=== PATIENT | female | born 1940 | race African-American/Black ===

== ENCOUNTER 2016-07-19 00:07 | Emergency (ER) | payer MEDICARE, MEDICAID ==
[~2016-07-19] VITALS: Ht 170.2 cm; Wt 63.5 kg
[~2016-07-19 00:07] MED LIST: ASPIR 8181 MG ORAL; ASPIRIN81 MG NG; COSOPT EYE DROP10 M1 OP; DIAZEPAM10 MG ORAL; GLIMEPIRIDE1 MG ORAL; GLUCOPHAGE500 MG ORAL; HYDROCODON-ACE1 EAC5 ORAL; KEFLEX500 MG ORAL; LIPITOR10 MG ORAL; METFORMIN HCL1000 M1 ORAL; METFORMIN HCL500 M1 ORAL; NKM; OMEPRAZOLE20 M2 ORAL; PROTONIX40 MG ORAL; SIMVASTATIN20 MG ORAL; SOMA350 MG PO; TENORMIN50 MG ORAL; ULTRA-LIGHT RO1 EACH MC; UNOBMED
[2016-07-19] MEDS ORDERED: AMOXICILLIN500 MG ORAL (00:45)
[2016-07-19] MEDS ORDERED: Tylenol #3 tab (300mg/30mg) ORAL ONE (00:45)
[2016-07-19] MEDS ORDERED: IBUPROFEN600 MG ORAL (00:45)
--- NOTE | 2016-07-19 00:45 | Emergency Room Report ---
History of Present Illness General Chief Complaint: Earache Source: Patient Present Illness HPI Is a 75-year-old female who presents with chief complaint of left ear pain. His been hurting for the last 2 weeks but worse tonight. Pain is 7/10. Hard time hearing out of it. Denies any fever chills denies any nausea vomiting. Nothing made it better. She been try to remove it with a Q-tip but not working. Allergies: Coded Allergies: No Known Allergies (Unverified , 10/15/12) Patient History Past Medical History: see triage record, old chart reviewed Past Surgical History: other Pertinent Family History: none Social History: Denies: smoking Last Menstrual Period: years Now: No Immunizations: other Reviewed Nursing Documentation: PMH: Agreed, PSxH: Agreed Nursing Documentation-PMH Past Medical History: No History, Except For Hx Cardiac Problems: Yes Hx Hypertension: Yes Hx Asthma: No Hx Diabetes: Yes Hx Cancer: No Hx Gastrointestinal Problems: No Hx Neurological Problems: No Review of Systems Eye: Denies: blurred vision, eye pain ENT: Reports: ear pain, Denies: nose congestion, throat swelling Respiratory: Denies: cough, shortness of breath Cardiovascular: Denies: chest pain, palpitations Gastrointestinal: Denies: abdominal pain, diarrhea, nausea, vomiting Musculoskeletal: Denies: back pain, joint pain Skin: Denies: rash Neurological: Denies: headache, numbness Endocrine: Denies: increased thirst, increased urine Hematologic/Lymphatic: Denies: easy bruising All Other Systems: negative except mentioned in HPI Physical Exam Vital Signs Date Time Temp Pulse Resp B/P Pulse Ox O2 Delivery O2 Flow Rate FiO2 07/19/16 00:09 97.9 96 18 149/84 99 Room Air vitals unremarkable Sp02 EP Interpretation: reviewed, normal General Appearance: well appearing, no apparent distress, alert Head: normocephalic, atraumatic Eyes: bilateral eye EOMI, bilateral eye PERRL ENT: hearing grossly normal, normal pharynx, other - Bilateral ear canals impacted with cerumen Neck: full range of motion, supple, no meningismus Respiratory: chest non-tender, lungs clear, normal breath sounds Cardiovascular #1: regular rate, rhythm, no murmur Gastrointestinal: normal bowel sounds, non tender, no mass, no organomegaly, no bruit, non-distended Musculoskeletal: back normal, gait/station normal, normal range of motion Psychiatric: mood/affect normal Skin: warm/dry Procedures Additional Procedure Procedure Narrative Procedure: Cerumen disimpaction Indication: Cerumen impaction Description: Remove some of the cerumen with an ear curette. Rest of the cerumen was removed with irrigation of the ear. I was able to remove large amount of cerumen. Patient tolerated procedure without a problem. On recheck, right TM normal. Left TM show erythema with air fluid level. Medical Decision Making Diagnostic Impression: Primary Impression: Otitis media Qualified Codes: H65.02 - Acute serous otitis media, left ear Additional Impression: Impacted cerumen of both ears ER Course Patient presents with cerumen impaction. She does have a left otitis media. Treat with antibiotics. No evidence of mastoiditis, perforation, fungal infection. Last Vital Signs Date Time Temp Pulse Resp B/P Pulse Ox O2 Delivery O2 Flow Rate FiO2 07/19/16 00:09 97.9 96 18 149/84 99 Room Air Status: improved Disposition: HOME, SELF-CARE Condition: Stable Scripts Ibuprofen* (MOTRIN*) 600 Mg Tablet 600 MG ORAL THREE TIMES A DAY, #30 TAB 0 Refills Prov: ADELE SUTTON M.D. 07/19/16 Amoxicillin* (AMOXIL*) 500 Mg Capsule 500 MG ORAL THREE TIMES A DAY, #21 CAP Prov: ADELE SUTTON M.D. 07/19/16 Patient Instructions: Otitis Media, Adult, [id number] Additional Instructions: Followup with your Dr. in 7 days. Return if worse. ADELE SUTTON M.D. Jul 19, 2016 00:45
[2016-07-19 00:53] VITALS: BP 149/84
== END 2016-07-19 01:07 | disposition home or self-care (01) ==
LOC: EDBD 00:07 → EMR 00:27
DX: H65.02 Acute serous otitis media, left ear (principal); H61.23 Impacted cerumen, bilateral; E11.9 Type 2 diabetes mellitus without complications; I10 Essential (primary) hypertension
CPT/HCPCS: 99284

== ENCOUNTER 2016-07-29 18:20 | Inpatient (IN) | payer MEDICAID, MEDICARE ==
[~2016-07-29] VITALS: Ht 175.3 cm; Wt 62.6 kg
[~2016-07-29 18:20] MED LIST changes: +AMOXICILLIN500 MG ORAL; +IBUPROFEN600 MG ORAL; +NovoLOG Insulin Flexpen SUBQ SCH
[2016-07-29 18:21] VITALS: BP 164/89
[2016-07-29] MEDS ORDERED: Morphine Sulfate 4mg/ml Inj IVP ONE (18:45)
[2016-07-29 18:54] LABS: BASOPHILS % (AUTO) 1.8 % (0.0-2.0); EOSINOPHILS % (AUTO) 3.6 % (0.0-3.0); MEAN CORPUSCULAR HEMOGLOBIN 29.1 PG (27.0-31.0); MEAN CORPUSCULAR HGB CONC 33.7 G/DL (32.0-36.0); MEAN CORPUSCULAR VOLUME 86 FL (80-99); MEAN PLATELET VOLUME 7.9 FL (6.5-10.1); MONOCYTES % (AUTO) 9.2 % (1.0-10.0); NEUTROPHILS % (AUTO) 44.5 % (45.0-75.0); PLATELET COUNT 240 K/UL (150-450); RED BLOOD COUNT 4.87 M/UL (4.20-5.40); RED CELL DISTRIBUTION WIDTH 11.7 % (11.6-14.8); WHITE BLOOD COUNT 4.2 K/UL (4.8-10.8)
[2016-07-29 19:18] LABS: ALANINE AMINOTRANSFERASE 29 U/L (3-33); ALBUMIN/GLOBULIN RATIO 1.2 (1.0-2.7); ANION GAP 21 (5-15); ASPARTATE AMINO TRANSFERASE 25 U/L (5-40); CALCIUM 9.8 mg/dL (8.6-10.2); CARBON DIOXIDE 22 mEQ/L (20-30); CHLORIDE 87 mEQ/L (98-107); CREATININE 1.3 mg/dL (0.5-0.9); HEMOLYSIS 0; MAGNESIUM 1.7 mg/dL (1.7-2.5); POTASSIUM 4.2 mEQ/L (3.4-4.9); SODIUM 130 mEQ/L (135-145); TOTAL PROTEIN 7.2 g/dL (6.6-8.7)
[2016-07-29 20:05] LABS: APPEARANCE,URINE CLEAR; KETONES,URINE NEGATIVE (NEGATIVE); LEUKOCYTE ESTERASE ,URINE NEGATIVE (NEGATIVE); NITRITE,URINE NEGATIVE (NEGATIVE); PH,URINE 5 (4.5-8.0); PROTEIN,URINE 1+ (NEGATIVE); UROBILINOGEN,URINE NORMAL MG/DL (0.0-1.0)
[2016-07-29 20:15] LABS: RBC,URINE 15-20 /HPF (0 - 2)
[2016-07-29 20:16] LABS: SQUAMOUS EPITHELIAL CELL,UR OCCASIONAL /LPF (NONE/OCC); WBC,URINE 0-2 /HPF (0 - 2)
[2016-07-29 20:21] VITALS: BP 154/79
[2016-07-29] MEDS ORDERED: Ketorolac 30mg Inj IV PRN (21:45)
[2016-07-29] MEDS ORDERED: Miralax 17gm pkt ORAL PRN (21:45)
[2016-07-29] MEDS ORDERED: DuoNeb 0.5-3(2.5)mg/3ml neb HHN PRN (21:45)
[2016-07-29] MEDS ORDERED: Nitroglycerin Subl 0.4mg tab (Bottle Of 25) SL PRN (21:45)
[2016-07-29] MEDS ORDERED: Mylanta II UD 30ml ORAL PRN (21:45)
[2016-07-29 21:49] VITALS: BP 130/82
--- NOTE | 2016-07-29 22:08 | Emergency Room Report ---
History of Present Illness General Chief Complaint: Abnormal Labs Source: Patient, EMS Present Illness HPI 75-year-old female presents to ED for evaluation. Patient states that she's been feeling very weak for the last several weeks and her blood sugar has been high. As per PMD patient's last glucose was greater than 600. Patient has history of diabetes-takes metformin. States she is compliant with her medications. Denies any fevers or chills. Denies nausea or vomiting. Denies chest pain or shortness of breath. No aggravating relieving factors. Denies any other associated symptoms Allergies: Coded Allergies: No Known Allergies (Unverified , 10/15/12) Patient History Past Medical History: DM, HTN Past Surgical History: none Pertinent Family History: none Social History: Denies: alcohol use, drug use, smoking Last Menstrual Period: YEARS Now: No : 3 Para: 1 Immunizations: UTD Reviewed Nursing Documentation: PMH: Agreed, PSxH: Agreed Nursing Documentation-PMH Past Medical History: No History, Except For Hx Cardiac Problems: Yes Hx Hypertension: Yes Hx Asthma: No Hx Diabetes: Yes Hx Cancer: No Hx Gastrointestinal Problems: No Hx Neurological Problems: No Review of Systems All Other Systems: negative except mentioned in HPI Physical Exam Vital Signs Date Time Temp Pulse Resp B/P Pulse Ox O2 Delivery O2 Flow Rate FiO2 07/29/16 18:10 99.0 109 16 164/89 98 Room Air Sp02 EP Interpretation: reviewed, normal General Appearance: no apparent distress, alert, GCS 15, non-toxic Head: normocephalic, atraumatic Eyes: bilateral eye PERRL, bilateral eye normal inspection ENT: hearing grossly normal, normal pharynx, no angioedema, normal voice Neck: full range of motion, supple/symm/no masses Respiratory: chest non-tender, lungs clear, normal breath sounds, speaking full sentences Cardiovascular #1: regular rate, rhythm, no edema Cardiovascular #2: 2+ carotid (R), 2+ carotid (L), 2+ radial (R), 2+ radial (L) , 2+ dorsalis pedis (R), 2+ dorsalis pedis (L) Gastrointestinal: normal bowel sounds, non tender, soft, non-distended, no guarding, no rebound Rectal: deferred Genitourinary: normal inspection, no CVA tenderness Musculoskeletal: back normal, gait/station normal, normal range of motion, non- tender Neurologic: alert, oriented x3, responsive, motor strength/tone normal, sensory intact, speech normal Psychiatric: judgement/insight normal, memory normal, mood/affect normal, no suicidal/homicidal ideation Reflexes: 3+ bicep (R), 3+ bicep (L), 3+ tricep (R), 3+ tricep (L), 3+ knee (R) , 3+ knee (L) Skin: normal color, no rash, warm/dry, well hydrated Lymphatic: no adenopathy Medical Decision Making Diagnostic Impression: Primary Impression: Hyperglycemia due to type 2 diabetes mellitus Qualified Codes: E11.65 - Type 2 diabetes mellitus with hyperglycemia Additional Impression: Weakness generalized ER Course Hospital Course 75-year-old female presenting to ED with generalized weakness, elevated fingerstick Differential diagnoses include: ETOH/drug ingestion, sepsis, DKA Clinical course Patient placed on stretcher. On case monitor. After initial history and physical I ordered labs, IV fluids Labs-glucose greater than 500, no evidence of DKA Insulin given, IV fluids given, antibiotics given Repeat Accu-Chek is improved. However patient states she does not feel better. Still feels weak Case discussed with Dr. Kasper and he agreed to accept the patient to his service for further care and support i. I feel this is a highly complex case requiring extensive working including EKG/Rhythm strip, Xray/CT/US, Blood/urine lab work, repeat exams while in ED, and administration of strong opiates/narcotics for pain control, admission to hospital or close patient follow up. diagnosis - hyperglycemia, generalized weakness admitted to floor in serious condition Labs Test 07/29/16 18:37 07/29/16 19:30 White Blood Count 4.2 K/UL (4.8-10.8) Red Blood Count 4.87 M/UL (4.20-5.40) Hemoglobin 14.2 G/DL (12.0-16.0) Hematocrit 42.1 % (37.0-47.0) Mean Corpuscular Volume 86 FL (80-99) Mean Corpuscular Hemoglobin 29.1 PG (27.0-31.0) Mean Corpuscular Hemoglobin Concent 33.7 G/DL (32.0-36.0) Red Cell Distribution Width 11.7 % (11.6-14.8) Platelet Count 240 K/UL (150-450) Mean Platelet Volume 7.9 FL (6.5-10.1) Neutrophils (%) (Auto) 44.5 % (45.0-75.0) Lymphocytes (%) (Auto) 41.0 % (20.0-45.0) Monocytes (%) (Auto) 9.2 % (1.0-10.0) Eosinophils (%) (Auto) 3.6 % (0.0-3.0) Basophils (%) (Auto) 1.8 % (0.0-2.0) Sodium Level 130 mEQ/L (135-145) Potassium Level 4.2 mEQ/L (3.4-4.9) Chloride Level 87 mEQ/L (98-107) Carbon Dioxide Level 22 mEQ/L (20-30) Anion Gap 21 (5-15) Blood Urea Nitrogen 18 mg/dL (7-23) Creatinine 1.3 mg/dL (0.5-0.9) Estimat Glomerular Filtration Rate mL/min (>60) Glucose Level 545 mg/dL (74-106) Calcium Level 9.8 mg/dL (8.6-10.2) Magnesium Level 1.7 mg/dL (1.7-2.5) Total Bilirubin 0.3 mg/dL (0.0-1.2) Aspartate Amino Transf (AST/SGOT) 25 U/L (5-40) Alanine Aminotransferase (ALT/SGPT) 29 U/L (3-33) Alkaline Phosphatase 136 U/L (35-104) Total Protein 7.2 g/dL (6.6-8.7) Albumin 4.0 g/dL (3.5-5.2) Globulin 3.2 g/dL Albumin/Globulin Ratio 1.2 (1.0-2.7) Acetone Level Negative (NEGATIVE) Urine Color Pale yellow Urine Appearance Clear Urine pH 5 (4.5-8.0) Urine Specific [place] 1.005 (1.005-1.035) Urine Protein 1+ (NEGATIVE) Urine Glucose (UA) 4+ (NEGATIVE) Urine Ketones Negative (NEGATIVE) Urine Occult Blood 5+ (NEGATIVE) Urine Nitrite Negative (NEGATIVE) Urine Bilirubin Negative (NEGATIVE) Urine Urobilinogen Normal MG/DL (0.0-1.0) Urine Leukocyte Esterase Negative (NEGATIVE) Urine RBC 15-20 /HPF (0 - 2) Urine WBC 0-2 /HPF (0 - 2) Urine Squamous Epithelial Cells Occasional /LPF Urine Bacteria None /HPF (NONE) Last Vital Signs Date Time Temp Pulse Resp B/P Pulse Ox O2 Delivery O2 Flow Rate FiO2 07/29/16 19:28 98.9 07/29/16 18:21 79 16 164/89 98 Room Air Status: improved Disposition: ADMITTED INPATIENT Condition: Serious Referrals: NON PHYSICIAN (PCP) INGRID BRUNNER M.D. Jul 29, 2016 22:08
[2016-07-30] VITALS: BP 123/57
[2016-07-30] MEDS: Morphine Sulfate 2mg/ml Inj IVP PRN ×6 (00:59→23:55)
[2016-07-30 04:00] VITALS: BP 123/67
[2016-07-30 06:21] LABS: BASOPHILS % (AUTO) 1.5 % (0.0-2.0); EOSINOPHILS % (AUTO) 3.5 % (0.0-3.0); LYMPHOCYTES % (AUTO) 49.3 % (20.0-45.0); MEAN CORPUSCULAR HEMOGLOBIN 29.6 PG (27.0-31.0); MEAN CORPUSCULAR HGB CONC 34.7 G/DL (32.0-36.0); MEAN CORPUSCULAR VOLUME 85 FL (80-99); MEAN PLATELET VOLUME 7.7 FL (6.5-10.1); MONOCYTES % (AUTO) 9.8 % (1.0-10.0); NEUTROPHILS % (AUTO) 35.8 % (45.0-75.0); PLATELET COUNT 214 K/UL (150-450); RED BLOOD COUNT 4.43 M/UL (4.20-5.40); RED CELL DISTRIBUTION WIDTH 11.5 % (11.6-14.8); WHITE BLOOD COUNT 4.5 K/UL (4.8-10.8)
[2016-07-30 06:49] LABS: ALANINE AMINOTRANSFERASE 50 U/L (3-33); ALBUMIN/GLOBULIN RATIO 1.2 (1.0-2.7); ANION GAP 17 (5-15); ASPARTATE AMINO TRANSFERASE 117 U/L (5-40); CALCIUM 8.9 mg/dL (8.6-10.2); CARBON DIOXIDE 21 mEQ/L (20-30); CHLORIDE 98 mEQ/L (98-107); CHOLESTEROL 192 mg/dL (< 200); CHOLESTEROL/HDL RATIO 2.4 (3.3-4.4); CREATININE 0.9 mg/dL (0.5-0.9); HEMOLYSIS 13; LDL CHOLESTEROL (CALC.) 87 mg/dL (60-99); POTASSIUM 4.4 mEQ/L (3.4-4.9); SODIUM 136 mEQ/L (135-145); TOTAL PROTEIN 5.9 g/dL (6.6-8.7)
[2016-07-30] MEDS: NovoLOG Insulin Flexpen SUBQ SCH ×5 (06:49→22:40)
[2016-07-30 08:00] VITALS: BP 145/92
[2016-07-30 08:04] LABS: HEMOGLOBIN A1C 17.5 % (< 6.0)
[2016-07-30] MEDS: Aspirin Baby 81mg NG SCH (08:23)
[2016-07-30] MEDS: Heparin 5000 units/ml inj SUBQ SCH ×2 (08:38→22:40)
[2016-07-30 12:00] VITALS: BP 133/86
--- NOTE | 2016-07-30 13:04 | History and Physical ---
History of Present Illness General Date patient seen: Jul 30, 2016 Time patient seen: 10:00 Reason for Hospitalization: hyperglycemia Present Illness HPI 75-year-old female presented to ED for evaluation. Patient stated that she had been feeling very weak for the last several weeks and her blood sugar was high. As per PMD-dr Ward, patient's last glucose was greater than 600. Patient with history of diabetes-, on metformin. Reported compliance with r medications. Does not check blood sugar at home, does not have accucheck machine Denied fevers or chills. Denied nausea or vomiting, diarrhea, abdominal pain Denied chest pain or shortness of breath Workup i ED revealed blood glcuose above 500, but no evidence of DKA elevated anion gap of 21, BUN 18, creat-1.3 Na 130, urine negative fro ketones , no evidence of UTI no fever, tachycardia 109, elevated BP 164/89 , pulse oximetry on RA was stable in ED patient started on IV fluids, received insulin, started on empiric antibiotics and transferred to [facility] floor for further management . Allergies: Coded Allergies: No Known Allergies (Unverified , 10/15/12) Medication History Scheduled Aspirin* (Aspirin*), 81 MG NG DAILY Atenolol* (Tenormin*), 50 MG ORAL DAILY, (Reported) Atorvastatin Calcium* (Lipitor*), 40 MG ORAL BEDTIME Dorzolamide Hcl/Timolol Maleat (Cosopt Eye Drops), 10 ML OP BID, (Reported) Glimepiride* (Glimepiride*), 2 MG ORAL BEFORE BREAKFAST Ibuprofen* (Motrin*), 600 MG ORAL THREE TIMES A DAY Metformin Hcl* (Metformin Hcl*), 1,000 MG ORAL TWICE A DAY Omeprazole (Omeprazole), 20 MG ORAL DAILY, (Reported) Miscellaneous Medications Unable to Obtain Medications (Unable To Obtain Meds), (Reported) Discontinued Medications Amoxicillin* (Amoxil*), 500 MG ORAL THREE TIMES A DAY Discontinued Reason: Therapy completed Durable Medical Equipment Walker (Ultra-Light Rollator), 1 EACH , (DME) Patient History History Provided By: Patient Healthcare decision maker Resuscitation status Full Code Advanced Directive on File Past Medical/Surgical History Past Medical/Surgical History: (1) Acute alcoholic pancreatitis (2) Gastroenteritis (3) Abnormal liver function test (4) H pylori ulcer (5) Alcohol abuse (6) Abdominal pain (7) HTN (hypertension) (8) DM2 (diabetes mellitus, type 2) (9) DKA (diabetic ketoacidoses) (10) LGI bleed (11) HLD (hyperlipidemia) (12) REZA (acute kidney injury) Family History Family History: Patient reports no known family medical history. Review of Systems Constitutional: Reports: weakness Eye: Reports: no symptoms ENT: Reports: no symptoms Respiratory: Reports: no symptoms Cardiovascular: Reports: other - HTN Gastrointestinal: Reports: constipation Genitourinary: Reports: no symptoms Musculoskeletal: Reports: no symptoms Skin: Reports: no symptoms Psychiatric: Reports: no symptoms Neurological: Reports: no symptoms Endocrine: Reports: see HPI Hematologic/Lymphatic: Reports: no symptoms Physical Exam General Appearance: WD/WN, no apparent distress, alert Lines, tubes and drains: peripheral HEENT: normocephalic, atraumatic, anicteric, mucous membranes moist, PERRL Neck: supple Respiratory/Chest: lungs clear, no respiratory distress, no accessory muscle use Cardiovascular/Chest: normal peripheral pulses, normal rate, regular rhythm, no JVD Abdomen: normal bowel sounds, non tender, soft Extremities: normal range of motion, non-tender, no calf tenderness Skin Exam: normal pigmentation, warm/dry Neurologic: alert, oriented x 3 Musculoskeletal: normal muscle bulk Last 24 Hour Vital Signs Date Time Temp Pulse Resp B/P Pulse Ox O2 Delivery O2 Flow Rate FiO2 07/30/16 10:17 97.8 07/30/16 08:23 102 145/92 07/30/16 08:00 97.8 102 18 145/92 95 Room Air 07/30/16 07:30 100 18 Room Air 07/30/16 04:00 98.1 99 19 123/67 98 Room Air 07/30/16 00:00 97.9 98 22 123/57 96 Room Air 07/29/16 23:19 85 18 Room Air 07/29/16 21:49 98.2 96 18 130/82 99 Room Air 07/29/16 20:21 98.9 81 16 154/79 100 Room Air 07/29/16 20:21 98.9 79 16 164/89 98 Room Air 07/29/16 19:28 98.9 07/29/16 18:21 99.0 79 16 164/89 98 Room Air 07/29/16 18:10 99.0 109 16 164/89 98 Room Air Intake and Output 07/29/16 07/30/16 19:00 07:00 Intake Total 340 ml Balance 340 ml Intake Oral 340 ml # Voids 1 2 # Bowel Movements 1 Laboratory Tests Test 07/29/16 18:37 07/29/16 19:30 07/30/16 05:10 White Blood Count 4.2 K/UL (4.8-10.8) L 4.5 K/UL (4.8-10.8) L Red Blood Count 4.87 M/UL (4.20-5.40) 4.43 M/UL (4.20-5.40) Hemoglobin 14.2 G/DL (12.0-16.0) 13.1 G/DL (12.0-16.0) Hematocrit 42.1 % (37.0-47.0) 37.8 % (37.0-47.0) Mean Corpuscular Volume 86 FL (80-99) 85 FL (80-99) Mean Corpuscular Hemoglobin 29.1 PG (27.0-31.0) 29.6 PG (27.0-31.0) Mean Corpuscular Hemoglobin Concent 33.7 G/DL (32.0-36.0) 34.7 G/DL (32.0-36.0) Red Cell Distribution Width 11.7 % (11.6-14.8) 11.5 % (11.6-14.8) L Platelet Count 240 K/UL (150-450) 214 K/UL (150-450) Mean Platelet Volume 7.9 FL (6.5-10.1) 7.7 FL (6.5-10.1) Neutrophils (%) (Auto) 44.5 % (45.0-75.0) L 35.8 % (45.0-75.0) L Lymphocytes (%) (Auto) 41.0 % (20.0-45.0) 49.3 % (20.0-45.0) H Monocytes (%) (Auto) 9.2 % (1.0-10.0) 9.8 % (1.0-10.0) Eosinophils (%) (Auto) 3.6 % (0.0-3.0) H 3.5 % (0.0-3.0) H Basophils (%) (Auto) 1.8 % (0.0-2.0) 1.5 % (0.0-2.0) Sodium Level 130 mEQ/L (135-145) L 136 mEQ/L (135-145) Potassium Level 4.2 mEQ/L (3.4-4.9) 4.4 mEQ/L (3.4-4.9) Chloride Level 87 mEQ/L (98-107) L 98 mEQ/L (98-107) Carbon Dioxide Level 22 mEQ/L (20-30) 21 mEQ/L (20-30) Anion Gap 21 (5-15) H 17 (5-15) H Blood Urea Nitrogen 18 mg/dL (7-23) 15 mg/dL (7-23) Creatinine 1.3 mg/dL (0.5-0.9) H 0.9 mg/dL (0.5-0.9) Estimat Glomerular Filtration Rate mL/min (>60) mL/min (>60) Glucose Level 545 mg/dL (74-106) *H 222 mg/dL (74-106) #H Calcium Level 9.8 mg/dL (8.6-10.2) 8.9 mg/dL (8.6-10.2) Magnesium Level 1.7 mg/dL (1.7-2.5) Total Bilirubin 0.3 mg/dL (0.0-1.2) 0.3 mg/dL (0.0-1.2) Aspartate Amino Transf (AST/SGOT) 25 U/L (5-40) 117 U/L (5-40) H Alanine Aminotransferase (ALT/SGPT) 29 U/L (3-33) 50 U/L (3-33) H Alkaline Phosphatase 136 U/L (35-104) H 114 U/L (35-104) H Total Protein 7.2 g/dL (6.6-8.7) 5.9 g/dL (6.6-8.7) L Albumin 4.0 g/dL (3.5-5.2) 3.3 g/dL (3.5-5.2) L Globulin 3.2 g/dL 2.6 g/dL Albumin/Globulin Ratio 1.2 (1.0-2.7) 1.2 (1.0-2.7) Acetone Level Negative (NEGATIVE) Urine Color Pale yellow Urine Appearance Clear Urine pH 5 (4.5-8.0) Urine Specific [place] 1.005 (1.005-1.035) Urine Protein 1+ (NEGATIVE) H Urine Glucose (UA) 4+ (NEGATIVE) H Urine Ketones Negative (NEGATIVE) Urine Occult Blood 5+ (NEGATIVE) H Urine Nitrite Negative (NEGATIVE) Urine Bilirubin Negative (NEGATIVE) Urine Urobilinogen Normal MG/DL (0.0-1.0) Urine Leukocyte Esterase Negative (NEGATIVE) Urine RBC 15-20 /HPF (0 - 2) H Urine WBC 0-2 /HPF (0 - 2) Urine Squamous Epithelial Cells Occasional /LPF Urine Bacteria None /HPF (NONE) Hemoglobin A1c 17.5 % (< 6.0) H Triglycerides Level 121 mg/dL (< 150) Cholesterol Level 192 mg/dL (< 200) LDL Cholesterol 87 mg/dL (60-99) HDL Cholesterol 81 mg/dL (> 60) H Cholesterol/HDL Ratio 2.4 (3.3-4.4) L Thyroid Stimulating Hormone (TSH) 1.900 uIU/mL (0.300-4.500) Height (Feet): 5 Height (Inches): 9.00 Weight (Pounds): 138 Medications Current Medications Medications (Trade) Dose Ordered Sig/Juan Route PRN Reason Start Time Stop Time Status Last Admin Dose Admin Acetaminophen (Tylenol) 650 mg Q4H PRN ORAL fever 07/29/16 21:45 08/28/16 21:44 Al Hydroxide/Mg Hydroxide (Mylanta II) 30 ml Q6H PRN ORAL dyspepsia 07/29/16 21:45 08/28/16 21:44 07/30/16 09:46 Albuterol/ Ipratropium (DuoNeb 0.5-3(2.5)mg/3ml) 3 ml EVERY 4 HOURS PRN HHN Shortness of Breath 07/29/16 21:45 08/03/16 21:44 Aspirin (ASA) 81 mg DAILY NG 07/30/16 09:00 08/29/16 08:59 07/30/16 08:23 Atenolol (Tenormin) 50 mg DAILY ORAL 07/30/16 09:00 08/29/16 08:59 07/30/16 08:23 Atorvastatin Calcium 40 mg 40 mg BEDTIME ORAL 07/29/16 22:00 08/28/16 21:59 07/29/16 22:38 Clonidine HCl (Catapres) 0.1 mg EVERY 4 HOURS PRN ORAL sbp more than 160 07/29/16 21:45 08/28/16 21:44 Dextrose (Dextrose 50%) STAT PRN IV Hypoglycemia 07/29/16 21:45 08/28/16 21:44 Heparin Sodium (Porcine) (Heparin 5000 units/ml) 5,000 units EVERY 12 HOURS SUBQ 07/30/16 09:00 08/29/16 08:59 07/30/16 08:38 Insulin Aspart (NovoLOG) BEFORE MEALS AND HS SUBQ 07/30/16 00:00 08/29/16 00:00 07/30/16 11:28 Morphine Sulfate (Morphine Sulfate) 2 mg EVERY 4 HOURS PRN IVP severe pain 7-10 07/29/16 21:45 08/05/16 21:44 07/30/16 09:47 Nitroglycerin (Ntg) 0.4 mg Q5M X 3 DOSES PRN SL Prn Chest Pain 07/29/16 21:45 08/28/16 21:44 Ondansetron HCl (Zofran) 4 mg Q6H PRN IVP Nausea & Vomiting 07/29/16 21:45 08/28/16 21:44 Polyethylene Glycol (Miralax) 17 gm HSPRN PRN ORAL Constipation 07/29/16 21:45 08/28/16 21:44 Sodium Chloride (Sodium Chloride 1000ml bag) 1,000 ml @ 100 mls/hr Q10H IVLG 07/29/16 22:00 08/28/16 21:59 07/30/16 08:23 Temazepam (Restoril) 15 mg HSPRN PRN ORAL Insomnia 07/29/16 21:45 08/05/16 21:44 Assessment/Plan Assessment/Plan ASSESSMENT hyperglycemia DM out of control HTN generalized weakness likely 2 to hyperglycemia ATN ( ? 2 to dehydration) Hx of alcohol abuse PLAN OF CARE [facility] floor IVF check HgA1c meantime start Levemir and SS as needed, endo eval, likely will need premeal short acting and long acting insulin BP management with BB, optimize as needed continue ASA and statim, check lipid panel check TSH DVT prophylaxis service counselor on abstinence from ETOH case discussed and evaluated by supervising physician Sher (Paolo),Susan LAWTON Jul 30, 2016 13:04
[2016-07-30 16:00] VITALS: BP 119/67
[2016-07-30] MEDS: Levemir Flexpen SUBQ SCH (17:57)
[2016-07-30 19:00] VITALS: BP 107/71
[2016-07-31] VITALS: BP 130/71
[2016-07-31] MEDS: Morphine Sulfate 2mg/ml Inj IVP PRN ×4 (04:01→23:53)
[2016-07-31] MEDS: NovoLOG Insulin Flexpen SUBQ SCH ×5 (06:14→23:54)
[2016-07-31 07:31] LABS: MEAN CORPUSCULAR HEMOGLOBIN 29.4 PG (27.0-31.0); MEAN CORPUSCULAR HGB CONC 33.8 G/DL (32.0-36.0); MEAN CORPUSCULAR VOLUME 87 FL (80-99); MEAN PLATELET VOLUME 7.3 FL (6.5-10.1); PLATELET COUNT 201 K/UL (150-450); RED BLOOD COUNT 4.61 M/UL (4.20-5.40); RED CELL DISTRIBUTION WIDTH 11.8 % (11.6-14.8); WHITE BLOOD COUNT 5.2 K/UL (4.8-10.8)
[2016-07-31 07:35] LABS: ANION GAP 15 (5-15); CALCIUM 8.7 mg/dL (8.6-10.2); CARBON DIOXIDE 24 mEQ/L (20-30); CHLORIDE 95 mEQ/L (98-107); CREATININE 0.9 mg/dL (0.5-0.9); HEMOLYSIS 5; POTASSIUM 5.1 mEQ/L (3.4-4.9); SODIUM 134 mEQ/L (135-145)
[2016-07-31 08:00] VITALS: BP 144/91
[2016-07-31] MEDS: Aspirin Baby 81mg NG SCH (08:52)
[2016-07-31] MEDS: Levemir Flexpen SUBQ SCH ×2 (08:54→21:05)
[2016-07-31] MEDS: Heparin 5000 units/ml inj SUBQ SCH ×2 (08:54→21:07)
[2016-07-31] MEDS ORDERED: metFORMIN 500mg tab ORAL SCH (09:00)
[2016-07-31 10:10] LABS: BAND NEUTROPHILS % (MANUAL) 0 % (0-8); BASOPHILS % (MANUAL) 0 % (0-2); EOSINOPHILS % (MANUAL) 5 % (0-3); LYMPHOCYTES % (MANUAL) 59 % (20-45); NEUTROPHILS % (MANUAL) 25 % (45-75); PLATELET ESTIMATE ADEQUATE; PLATELET MORPHOLOGY NORMAL; TOTAL CELLS COUNTED 100
--- NOTE | 2016-07-31 11:11 | Consultation ---
Consult Note Consult Note asked to eval for abnormal lytes- 75-year-old female presented to ED for evaluation. Patient stated that she had been feeling very weak for the last several weeks and her blood sugar was high. patient's last glucose was greater than 600. Patient with history of diabetes-, on metformin. Does not check blood sugar at home, does not have accucheck machine Denied fevers or chills. Denied nausea or vomiting, diarrhea, abdominal pain Denied chest pain or shortness of breath Workup i ED revealed blood glcuose above 500, but no evidence of DKA elevated anion gap of 21, BUN 18, creat-1.3 Na 130, urine negative fro ketones , no evidence of UTI no fever, tachycardia 109, elevated BP 164/89 , pulse oximetry on RA was stable in ED patient started on IV fluids, received insulin, started on empiric antibiotics and transferred to [facility] floor for further management . Patient interviewed, examined, Data reviewed . Assessment/Plan Status: - Dehydration- HypoNatremia, HyperKalemia Other: DM OOC HTN High Cholestrol h/o H Pylori h/o Alcohol abuse Plan: Hydrate with Isotonic solution- Monitor lytes and renal parameters- Keep BP and BS in check Per orders. DANIELITO MESA Jul 31, 2016 11:11
[2016-07-31] MEDS: metFORMIN 500mg tab ORAL SCH ×2 (11:27→16:35)
[2016-07-31] MEDS ORDERED: NovoLOG Insulin Flexpen SUBQ ONE (12:52)
[2016-07-31 12:56] VITALS: BP 153/93
--- NOTE | 2016-07-31 14:49 | Pulmonology Progress Note ---
Assessment/Plan Assessment/Plan ASSESSMENT hyperglycemia DM out of control HTN generalized weakness likely 2 to hyperglycemia ATN ( ? 2 to dehydration), - prerenal e/lyte imbalance (hypoNa, hyper K) Hx of alcohol abuse PLAN OF CARE [facility] floor IVF HgA1c -16.8 endo eval appreciated started on premeal short acting and long acting insulin BP management with BB, optimize as needed continue ASA and statin, lipid panel stable TSH WNL nephro follows, monitor renal parameters, lytes Na up to 134, K-5, ATN/ARF likely prerenal component 2 to dehydration, creat down to normal with IVF DVT prophylaxis extension course counselor on abstinence from ETOH case discussed and evaluated by supervising physician Subjective Allergies: Coded Allergies: No Known Allergies (Unverified , 10/15/12) Subjective BS better denies n/v/abdominal pain no fever, no chills admits to intermittent binging on ETOH LFT with abrupt rise today seen and evaluated by endo Objective Last 24 Hour Vital Signs Date Time Temp Pulse Resp B/P Pulse Ox O2 Delivery O2 Flow Rate FiO2 07/31/16 12:56 98.6 77 14 153/93 98 Room Air 07/31/16 11:39 98.2 07/31/16 08:53 84 144/99 07/31/16 08:13 83 18 Room Air 21 07/31/16 08:00 98.2 84 15 144/91 99 Room Air 07/31/16 00:00 97.7 74 20 130/71 98 Room Air 07/30/16 19:58 90 20 Room Air 21 07/30/16 19:00 97.9 87 20 107/71 97 Room Air 07/30/16 16:00 98.1 85 20 119/67 99 Room Air Intake and Output 07/30/16 07/31/16 19:00 07:00 Intake Total 1580 ml 1240 ml Balance 1580 ml 1240 ml Intake Oral 480 ml 240 ml IV Total 1100 ml 1000 ml # Voids 2 4 # Bowel Movements 1 Objective General Appearance: WD/WN, no apparent distress, alert Lines, tubes and drains: peripheral HEENT: normocephalic, atraumatic, anicteric, mucous membranes moist, PERRL Neck: supple Respiratory/Chest: lungs clear, no respiratory distress, no accessory muscle use Cardiovascular/Chest: normal peripheral pulses, normal rate, regular rhythm, no JVD Abdomen: normal bowel sounds, non tender, soft Extremities: normal range of motion, non-tender, no calf tenderness Skin Exam: normal pigmentation, warm/dry Neurologic: alert, oriented x 3 Musculoskeletal: normal muscle bulk Laboratory Tests 07/31/16 06:10: White Blood Count 5.2, Red Blood Count 4.61, Hemoglobin 13.6, Hematocrit 40.1, Mean Corpuscular Volume 87, Mean Corpuscular Hemoglobin 29.4, Mean Corpuscular Hemoglobin Concent 33.8, Red Cell Distribution Width 11.8, Platelet Count 201, Mean Platelet Volume 7.3, Neutrophils (%) (Auto) , Lymphocytes (%) (Auto) , Monocytes (%) (Auto) , Eosinophils (%) (Auto) , Basophils (%) (Auto) , Differential Total Cells Counted 100, Neutrophils % (Manual) 25L, Lymphocytes % (Manual) 59H, Monocytes % (Manual) 11H, Eosinophils % (Manual) 5H, Basophils % ( Manual) 0, Band Neutrophils 0, Platelet Estimate Adequate, Platelet Morphology Normal, Red Blood Cell Morphology Normal, Sodium Level 134L, Potassium Level 5.1H, Chloride Level 95L, Carbon Dioxide Level 24, Anion Gap 15, Blood Urea Nitrogen 14, Creatinine 0.9, Estimat Glomerular Filtration Rate , Glucose Level 251H, Hemoglobin A1c 16.8H, Calcium Level 8.7 Current Medications Medications (Trade) Dose Ordered Sig/Juan Route PRN Reason Start Time Stop Time Status Last Admin Dose Admin Acetaminophen (Tylenol) 650 mg Q4H PRN ORAL fever 07/29/16 21:45 08/28/16 21:44 Albuterol/ Ipratropium (DuoNeb 0.5-3(2.5)mg/3ml) 3 ml EVERY 4 HOURS PRN HHN Shortness of Breath 07/29/16 21:45 08/03/16 21:44 Aspirin (ASA) 81 mg DAILY NG 07/30/16 09:00 08/29/16 08:59 07/31/16 08:52 Atenolol 50 mg 50 mg DAILY ORAL 07/30/16 09:00 08/29/16 08:59 07/31/16 08:53 Atorvastatin Calcium (Lipitor) 20 mg BEDTIME ORAL 07/31/16 21:00 08/30/16 20:59 Clonidine HCl (Catapres) 0.1 mg EVERY 4 HOURS PRN ORAL sbp more than 160 07/29/16 21:45 08/28/16 21:44 Dextrose (Dextrose 50%) STAT PRN IV Hypoglycemia 07/31/16 06:45 08/30/16 06:44 Heparin Sodium (Porcine) (Heparin 5000 units/ml) 5,000 units EVERY 12 HOURS SUBQ 07/30/16 09:00 08/29/16 08:59 07/31/16 08:54 Insulin Aspart (NovoLOG) Q6HR SUBQ 07/31/16 12:00 08/30/16 11:59 07/31/16 11:40 Insulin Aspart (NovoLOG) 5 units NOVOTIAC SUBQ 07/31/16 16:50 08/30/16 16:49 Insulin Detemir (Levemir) 15 units Q12HR SUBQ 07/31/16 21:00 08/30/16 20:59 Metformin HCl (Glucophage) 500 mg TIAC ORAL 07/31/16 11:30 08/30/16 11:29 07/31/16 11:27 Morphine Sulfate (Morphine Sulfate) 2 mg EVERY 4 HOURS PRN IVP severe pain 7-10 07/29/16 21:45 08/05/16 21:44 07/31/16 11:09 Nitroglycerin (Ntg) 0.4 mg Q5M X 3 DOSES PRN SL Prn Chest Pain 07/29/16 21:45 08/28/16 21:44 Ondansetron HCl (Zofran) 4 mg Q6H PRN IVP Nausea & Vomiting 07/29/16 21:45 08/28/16 21:44 Pantoprazole (Protonix) 40 mg DAILY ORAL 07/31/16 11:15 08/30/16 11:14 07/31/16 11:27 Polyethylene Glycol (Miralax) 17 gm HSPRN PRN ORAL Constipation 07/29/16 21:45 08/28/16 21:44 Sodium Chloride (Sodium Chloride 1000ml bag) 1,000 ml @ 100 mls/hr Q10H IVLG 07/29/16 22:00 08/28/16 21:59 07/31/16 13:08 Temazepam (Restoril) 15 mg HSPRN PRN ORAL Insomnia 07/29/16 21:45 08/05/16 21:44 07/30/16 22:38 Sher ([facility]),Susan LAWTON Jul 31, 2016 14:49
[2016-07-31 16:12] VITALS: BP 122/70
[2016-07-31 20:37] VITALS: BP 125/75
[2016-07-31] MEDS: Atorvastatin 20mg tab ORAL SCH (21:03)
[2016-08-01] VITALS: BP 147/79
[2016-08-01 04:00] VITALS: BP 142/83
[2016-08-01] MEDS: Morphine Sulfate 2mg/ml Inj IVP PRN ×3 (04:22→16:53)
[2016-08-01 06:10] LABS: BASOPHILS % (AUTO) 1.9 % (0.0-2.0); EOSINOPHILS % (AUTO) 4.6 % (0.0-3.0); LYMPHOCYTES % (AUTO) 46.3 % (20.0-45.0); MEAN CORPUSCULAR HEMOGLOBIN 29.7 PG (27.0-31.0); MEAN CORPUSCULAR HGB CONC 34.3 G/DL (32.0-36.0); MEAN CORPUSCULAR VOLUME 87 FL (80-99); MEAN PLATELET VOLUME 7.5 FL (6.5-10.1); NEUTROPHILS % (AUTO) 37.3 % (45.0-75.0); PLATELET COUNT 191 K/UL (150-450); RED BLOOD COUNT 4.38 M/UL (4.20-5.40); RED CELL DISTRIBUTION WIDTH 12.1 % (11.6-14.8); WHITE BLOOD COUNT 5.2 K/UL (4.8-10.8)
[2016-08-01] MEDS: NovoLOG Insulin Flexpen SUBQ SCH ×7 (06:14→20:57)
[2016-08-01] MEDS: metFORMIN 500mg tab ORAL SCH ×3 (06:16→16:48)
[2016-08-01 07:04] LABS: ALANINE AMINOTRANSFERASE 28 U/L (3-33); ALBUMIN/GLOBULIN RATIO 1.4 (1.0-2.7); ANION GAP 17 (5-15); ASPARTATE AMINO TRANSFERASE 30 U/L (5-40); CALCIUM 8.6 mg/dL (8.6-10.2); CARBON DIOXIDE 20 mEQ/L (20-30); CHLORIDE 100 mEQ/L (98-107); CRP QUANT < 0.3 mg/dL (< 0.5); HEMOLYSIS 82; POTASSIUM 4.7 mEQ/L (3.4-4.9); SODIUM 137 mEQ/L (135-145); TOTAL PROTEIN 5.2 g/dL (6.6-8.7); URIC ACID 5.2 mg/dL (3.0-7.5)
[2016-08-01 08:00] VITALS: BP 138/90
[2016-08-01] MEDS: Levemir Flexpen SUBQ SCH ×2 (09:00→20:56)
[2016-08-01] MEDS: Aspirin Baby 81mg NG SCH (09:13)
[2016-08-01] MEDS: Heparin 5000 units/ml inj SUBQ SCH ×2 (09:16→20:58)
[2016-08-01 12:00] VITALS: BP 132/79
--- NOTE | 2016-08-01 13:02 | General Progress Note ---
Assessment/Plan Status: unchanged Assessment/Plan - Dehydration- HypoNatremia, HyperKalemia ( CORRECTED) Other: DM OOC HTN High Cholestrol h/o H Pylori h/o Alcohol abuse Plan: Hydrate with Isotonic solution- Monitor lytes and renal parameters- Keep BP and BS in check Per orders. Subjective ROS Limited/Unobtainable: No Constitutional: Reports: malaise Allergies: Coded Allergies: No Known Allergies (Unverified , 10/15/12) Objective Last 24 Hour Vital Signs Date Time Temp Pulse Resp B/P Pulse Ox O2 Delivery O2 Flow Rate FiO2 08/01/16 09:14 79 138/90 08/01/16 08:00 97.2 79 18 138/90 Room Air 08/01/16 07:11 74 18 Room Air 21 08/01/16 04:00 96.4 68 18 142/83 96 Room Air 08/01/16 00:00 96.3 75 18 147/79 100 Room Air 07/31/16 20:37 97.3 74 19 125/75 99 Room Air 07/31/16 20:23 86 18 Room Air 21 07/31/16 16:12 97.2 71 19 122/70 99 Room Air Intake and Output 07/31/16 08/01/16 19:00 07:00 Intake Total 1500 ml 980 ml Output Total 800 ml Balance 700 ml 980 ml Intake Oral 900 ml 480 ml IV Total 600 ml 500 ml Output Urine Total 800 ml # Voids 3 Laboratory Tests 08/01/16 04:30: White Blood Count 5.2, Red Blood Count 4.38, Hemoglobin 13.0, Hematocrit 37.9, Mean Corpuscular Volume 87, Mean Corpuscular Hemoglobin 29.7, Mean Corpuscular Hemoglobin Concent 34.3, Red Cell Distribution Width 12.1, Platelet Count 191, Mean Platelet Volume 7.5, Neutrophils (%) (Auto) 37.3L, Lymphocytes (%) (Auto) 46.3H, Monocytes (%) (Auto) 10.0, Eosinophils (%) (Auto) 4.6H, Basophils (%) ( Auto) 1.9 08/01/16 04:35: Sodium Level 137, Potassium Level 4.7, Chloride Level 100, Carbon Dioxide Level 20, Anion Gap 17H, Blood Urea Nitrogen 16, Creatinine 1.0H, Estimat Glomerular Filtration Rate , Glucose Level 256H, Uric Acid 5.2, Calcium Level 8.6, Total Bilirubin < 0.2, Aspartate Amino Transf (AST/SGOT) 30, Alanine Aminotransferase (ALT/SGPT) 28, Alkaline Phosphatase 95, C-Reactive Protein, Quantitative < 0.3, Pro-B-Type Natriuretic Peptide 1337H, Total Protein 5.2L, Albumin 3.1L, Globulin 2.1, Albumin/Globulin Ratio 1.4 Height (Feet): 5 Height (Inches): 9.00 Weight (Pounds): 138 General Appearance: no apparent distress Objective no change in physical exam DANIELITO MESA Aug 01, 2016 13:02
[2016-08-01 15:59] VITALS: BP 139/81
[2016-08-01 20:00] VITALS: BP 157/104
[2016-08-01] MEDS: Atorvastatin 20mg tab ORAL SCH (20:55)
--- NOTE | 2016-08-01 23:03 | Pulmonology Progress Note ---
Assessment/Plan Problems: (1) Diabetes mellitus type 2, uncontrolled, with complications (2) REZA (acute kidney injury) Assessment/Plan improving adjust novolog and levemir f/u by endo check electrolytes. Subjective ROS Limited/Unobtainable: No Allergies: Coded Allergies: No Known Allergies (Unverified , 10/15/12) Objective Last 24 Hour Vital Signs Date Time Temp Pulse Resp B/P Pulse Ox O2 Delivery O2 Flow Rate FiO2 08/01/16 20:00 97.3 79 18 157/104 99 Room Air 08/01/16 15:59 97.3 74 19 139/81 98 Room Air 08/01/16 12:00 96.8 73 18 132/79 100 Room Air 08/01/16 09:14 79 138/90 08/01/16 08:00 97.2 79 18 138/90 Room Air 08/01/16 07:11 74 18 Room Air 21 08/01/16 04:00 96.4 68 18 142/83 96 Room Air 08/01/16 00:00 96.3 75 18 147/79 100 Room Air Intake and Output 07/31/16 08/01/16 19:00 07:00 Intake Total 1500 ml 980 ml Output Total 800 ml Balance 700 ml 980 ml Intake Oral 900 ml 480 ml IV Total 600 ml 500 ml Output Urine Total 800 ml # Voids 3 General Appearance: WD/WN HEENT: normocephalic Respiratory/Chest: chest wall non-tender, lungs clear Cardiovascular: normal peripheral pulses, normal rate Abdomen: soft, non tender Genitourinary: normal external genitalia Laboratory Tests 08/01/16 04:30: White Blood Count 5.2, Red Blood Count 4.38, Hemoglobin 13.0, Hematocrit 37.9, Mean Corpuscular Volume 87, Mean Corpuscular Hemoglobin 29.7, Mean Corpuscular Hemoglobin Concent 34.3, Red Cell Distribution Width 12.1, Platelet Count 191, Mean Platelet Volume 7.5, Neutrophils (%) (Auto) 37.3L, Lymphocytes (%) (Auto) 46.3H, Monocytes (%) (Auto) 10.0, Eosinophils (%) (Auto) 4.6H, Basophils (%) ( Auto) 1.9 08/01/16 04:35: Sodium Level 137, Potassium Level 4.7, Chloride Level 100, Carbon Dioxide Level 20, Anion Gap 17H, Blood Urea Nitrogen 16, Creatinine 1.0H, Estimat Glomerular Filtration Rate , Glucose Level 256H, Uric Acid 5.2, Calcium Level 8.6, Total Bilirubin < 0.2, Aspartate Amino Transf (AST/SGOT) 30, Alanine Aminotransferase (ALT/SGPT) 28, Alkaline Phosphatase 95, C-Reactive Protein, Quantitative < 0.3, Pro-B-Type Natriuretic Peptide 1337H, Total Protein 5.2L, Albumin 3.1L, Globulin 2.1, Albumin/Globulin Ratio 1.4 Current Medications Medications (Trade) Dose Ordered Sig/Juan Route PRN Reason Start Time Stop Time Status Last Admin Dose Admin Acetaminophen (Tylenol) 650 mg Q4H PRN ORAL fever 07/29/16 21:45 08/28/16 21:44 Albuterol/ Ipratropium (DuoNeb 0.5-3(2.5)mg/3ml) 3 ml EVERY 4 HOURS PRN HHN Shortness of Breath 07/29/16 21:45 08/03/16 21:44 Aspirin (ASA) 81 mg DAILY NG 07/30/16 09:00 08/29/16 08:59 08/01/16 09:13 Atenolol 50 mg 50 mg DAILY ORAL 07/30/16 09:00 08/29/16 08:59 08/01/16 09:14 Atorvastatin Calcium (Lipitor) 20 mg BEDTIME ORAL 07/31/16 21:00 08/30/16 20:59 08/01/16 20:55 Clonidine HCl (Catapres) 0.1 mg EVERY 4 HOURS PRN ORAL sbp more than 160 07/29/16 21:45 08/28/16 21:44 Dextrose (Dextrose 50%) STAT PRN IV Hypoglycemia 07/31/16 06:45 08/30/16 06:44 Heparin Sodium (Porcine) (Heparin 5000 units/ml) 5,000 units EVERY 12 HOURS SUBQ 07/30/16 09:00 08/29/16 08:59 08/01/16 20:58 Insulin Aspart (NovoLOG) Q6HR SUBQ 07/31/16 12:00 08/30/16 11:59 08/01/16 20:57 Insulin Aspart (NovoLOG) 5 units NOVOTIAC SUBQ 07/31/16 16:50 08/30/16 16:49 08/01/16 16:50 Insulin Detemir (Levemir) 15 units Q12HR SUBQ 07/31/16 21:00 08/30/16 20:59 08/01/16 20:56 Metformin HCl (Glucophage) 500 mg TIAC ORAL 07/31/16 11:30 08/30/16 11:29 08/01/16 16:48 Morphine Sulfate (Morphine Sulfate) 2 mg EVERY 4 HOURS PRN IVP severe pain 7-10 07/29/16 21:45 08/05/16 21:44 08/01/16 16:53 Nitroglycerin (Ntg) 0.4 mg Q5M X 3 DOSES PRN SL Prn Chest Pain 07/29/16 21:45 08/28/16 21:44 Ondansetron HCl (Zofran) 4 mg Q6H PRN IVP Nausea & Vomiting 07/29/16 21:45 08/28/16 21:44 Pantoprazole (Protonix) 40 mg DAILY ORAL 07/31/16 11:15 08/30/16 11:14 08/01/16 09:13 Polyethylene Glycol (Miralax) 17 gm HSPRN PRN ORAL Constipation 07/29/16 21:45 08/28/16 21:44 Sodium Chloride (Sodium Chloride 1000ml bag) 1,000 ml @ 100 mls/hr Q10H IVLG 07/29/16 22:00 08/28/16 21:59 08/01/16 16:53 Temazepam (Restoril) 15 mg HSPRN PRN ORAL Insomnia 07/29/16 21:45 08/05/16 21:44 07/31/16 21:26 MARY ANN DUEÑAS Aug 01, 2016 23:03
[2016-08-02] MEDS: Morphine Sulfate 2mg/ml Inj IVP PRN ×4 (01:31→20:32)
[2016-08-02 04:00] VITALS: BP 138/84
[2016-08-02] MEDS: metFORMIN 500mg tab ORAL SCH ×3 (05:51→16:06)
[2016-08-02] MEDS: NovoLOG Insulin Flexpen SUBQ SCH ×6 (05:56→19:08)
--- NOTE | 2016-08-02 06:58 | General Progress Note ---
Assessment/Plan Problem List: (1) Diabetes mellitus type 2, uncontrolled, with complications ICD Codes: E11.8 - Diabetes mellitus type 2, uncontrolled, with complications SNOMED: [id number] Assessment/Plan change Levemir 15 units bid to 15 units qhs continue Novolog 5 units ac tid continue Metformin 500 mg continue SSI Subjective Allergies: Coded Allergies: No Known Allergies (Unverified , 10/15/12) All Systems: reviewed and negative except above Subjective events noted evaluated by Dr Wynne over the weekend Objective Last 24 Hour Vital Signs Date Time Temp Pulse Resp B/P Pulse Ox O2 Delivery O2 Flow Rate FiO2 08/02/16 04:00 97.5 74 18 138/84 97 Room Air 08/01/16 20:00 97.3 79 18 157/104 99 Room Air 08/01/16 15:59 97.3 74 19 139/81 98 Room Air 08/01/16 12:00 96.8 73 18 132/79 100 Room Air 08/01/16 09:14 79 138/90 08/01/16 08:00 97.2 79 18 138/90 Room Air 08/01/16 07:11 74 18 Room Air 21 Intake and Output 08/01/16 08/02/16 19:00 07:00 Intake Total 720 ml 1360 ml Balance 720 ml 1360 ml Intake Oral 720 ml 660 ml IV Total 700 ml # Voids 4 5 # Bowel Movements 1 Height (Feet): 5 Height (Inches): 9.00 Weight (Pounds): 138 General Appearance: no apparent distress Neck: normal alignment Cardiovascular: normal rate Respiratory/Chest: lungs clear Abdomen: normal bowel sounds Objective Current Medications Medications (Trade) Dose Ordered Sig/Juan Route PRN Reason Start Time Stop Time Status Last Admin Dose Admin Acetaminophen (Tylenol) 650 mg Q4H PRN ORAL fever 07/29/16 21:45 08/28/16 21:44 Albuterol/ Ipratropium (DuoNeb 0.5-3(2.5)mg/3ml) 3 ml EVERY 4 HOURS PRN HHN Shortness of Breath 07/29/16 21:45 08/03/16 21:44 Aspirin (ASA) 81 mg DAILY NG 07/30/16 09:00 08/29/16 08:59 08/01/16 09:13 Atenolol 50 mg 50 mg DAILY ORAL 07/30/16 09:00 08/29/16 08:59 08/01/16 09:14 Atorvastatin Calcium (Lipitor) 20 mg BEDTIME ORAL 07/31/16 21:00 08/30/16 20:59 08/01/16 20:55 Clonidine HCl (Catapres) 0.1 mg EVERY 4 HOURS PRN ORAL sbp more than 160 07/29/16 21:45 08/28/16 21:44 Dextrose (Dextrose 50%) STAT PRN IV Hypoglycemia 07/31/16 06:45 08/30/16 06:44 Heparin Sodium (Porcine) (Heparin 5000 units/ml) 5,000 units EVERY 12 HOURS SUBQ 07/30/16 09:00 08/29/16 08:59 08/01/16 20:58 Insulin Aspart (NovoLOG) Q6HR SUBQ 07/31/16 12:00 08/30/16 11:59 08/02/16 05:56 Insulin Aspart (NovoLOG) 5 units NOVOTIAC SUBQ 07/31/16 16:50 08/30/16 16:49 08/02/16 05:57 Insulin Detemir (Levemir) 15 units Q12HR SUBQ 07/31/16 21:00 08/30/16 20:59 08/01/16 20:56 Metformin HCl (Glucophage) 500 mg TIAC ORAL 07/31/16 11:30 08/30/16 11:29 08/02/16 05:51 Morphine Sulfate (Morphine Sulfate) 2 mg EVERY 4 HOURS PRN IVP severe pain 7-10 07/29/16 21:45 08/05/16 21:44 08/02/16 01:31 Nitroglycerin (Ntg) 0.4 mg Q5M X 3 DOSES PRN SL Prn Chest Pain 07/29/16 21:45 08/28/16 21:44 Ondansetron HCl (Zofran) 4 mg Q6H PRN IVP Nausea & Vomiting 07/29/16 21:45 08/28/16 21:44 Pantoprazole (Protonix) 40 mg DAILY ORAL 07/31/16 11:15 08/30/16 11:14 08/01/16 09:13 Polyethylene Glycol (Miralax) 17 gm HSPRN PRN ORAL Constipation 07/29/16 21:45 08/28/16 21:44 Sodium Chloride (Sodium Chloride 1000ml bag) 1,000 ml @ 100 mls/hr Q10H IVLG 07/29/16 22:00 08/28/16 21:59 08/02/16 05:51 Temazepam (Restoril) 15 mg HSPRN PRN ORAL Insomnia 07/29/16 21:45 08/05/16 21:44 07/31/16 21:26 Item Value Date Time Bedside Blood Glucose 161 mg/dl H 08/02/16 0600 Bedside Blood Glucose 168 mg/dl H 08/01/16 2057 Bedside Blood Glucose 253 mg/dl H 08/01/16 1821 Bedside Blood Glucose 141 mg/dl H 08/01/16 1153 Bedside Blood Glucose 81 mg/dl 08/01/16 0900 DEBBIE ZULETA Aug 02, 2016 06:58
[2016-08-02 08:08] VITALS: BP 131/77
[2016-08-02] MEDS: Heparin 5000 units/ml inj SUBQ SCH ×2 (08:24→20:31)
[2016-08-02] MEDS: Aspirin Baby 81mg NG SCH (08:24)
[2016-08-02 11:58] VITALS: BP 145/80
--- NOTE | 2016-08-02 12:31 | General Progress Note ---
Assessment/Plan Status: stable Assessment/Plan - Dehydration- HypoNatremia, HyperKalemia ( CORRECTED) Other: DM OOC HTN High Cholestrol h/o H Pylori h/o Alcohol abuse Plan: No labs today- stop IV flyuid- Monitor lytes and renal parameters- Keep BP and BS in check Per orders. ? DC planning? Subjective ROS Limited/Unobtainable: No Constitutional: Reports: malaise Allergies: Coded Allergies: No Known Allergies (Unverified , 10/15/12) Objective Last 24 Hour Vital Signs Date Time Temp Pulse Resp B/P Pulse Ox O2 Delivery O2 Flow Rate FiO2 08/02/16 11:58 97.9 69 21 145/80 96 Room Air 08/02/16 11:26 97.2 08/02/16 08:24 83 131/77 08/02/16 08:08 97.2 83 20 131/77 96 Room Air 08/02/16 06:45 85 18 Room Air 21 08/02/16 04:00 97.5 74 18 138/84 97 Room Air 08/01/16 20:00 97.3 79 18 157/104 99 Room Air 08/01/16 15:59 97.3 74 19 139/81 98 Room Air Intake and Output 08/01/16 08/02/16 19:00 07:00 Intake Total 720 ml 1460 ml Balance 720 ml 1460 ml Intake Oral 720 ml 660 ml IV Total 800 ml # Voids 4 5 # Bowel Movements 1 Height (Feet): 5 Height (Inches): 9.00 Weight (Pounds): 138 General Appearance: no apparent distress Objective no change in physical exam DANIELITO MESA Aug 02, 2016 12:31
[2016-08-02 16:15] VITALS: BP 145/83
[2016-08-02] MEDS ORDERED: GLUCOPHAGE500 MG ORAL (16:35)
[2016-08-02] MEDS ORDERED: NOVOLOG100 UNITS1 SUBQ (16:35)
[2016-08-02] MEDS ORDERED: LEVEMIR FL100 UNIT/1 SUBQ (16:35)
--- NOTE | 2016-08-02 16:37 | Pulmonology Progress Note ---
Assessment/Plan Problems: (1) Diabetes mellitus type 2, uncontrolled, with complications (2) REZA (acute kidney injury) (3) Vomiting Assessment/Plan Iv fluids adjust diabetic meds sliding scale on metformin. dc home in am Subjective ROS Limited/Unobtainable: No Interval Events: bs better, Allergies: Coded Allergies: No Known Allergies (Unverified , 10/15/12) Objective Last 24 Hour Vital Signs Date Time Temp Pulse Resp B/P Pulse Ox O2 Delivery O2 Flow Rate FiO2 08/02/16 16:15 97.9 70 18 145/83 99 Room Air 08/02/16 11:58 97.9 69 21 145/80 96 Room Air 08/02/16 11:26 97.2 08/02/16 08:24 83 131/77 08/02/16 08:08 97.2 83 20 131/77 96 Room Air 08/02/16 06:45 85 18 Room Air 21 08/02/16 04:00 97.5 74 18 138/84 97 Room Air 08/01/16 20:00 97.3 79 18 157/104 99 Room Air Intake and Output 08/01/16 08/02/16 19:00 07:00 Intake Total 720 ml 1460 ml Balance 720 ml 1460 ml Intake Oral 720 ml 660 ml IV Total 800 ml # Voids 4 5 # Bowel Movements 1 General Appearance: WD/WN HEENT: normocephalic, anicteric Respiratory/Chest: chest wall non-tender, normal breath sounds Cardiovascular: normal peripheral pulses, normal rate Abdomen: normal bowel sounds, soft, non tender Genitourinary: normal external genitalia Skin: no rash Current Medications Medications (Trade) Dose Ordered Sig/Juan Route PRN Reason Start Time Stop Time Status Last Admin Dose Admin Acetaminophen (Tylenol) 650 mg Q4H PRN ORAL fever 07/29/16 21:45 08/28/16 21:44 Albuterol/ Ipratropium (DuoNeb 0.5-3(2.5)mg/3ml) 3 ml EVERY 4 HOURS PRN HHN Shortness of Breath 07/29/16 21:45 08/03/16 21:44 Aspirin (ASA) 81 mg DAILY NG 07/30/16 09:00 08/29/16 08:59 08/02/16 08:24 Atenolol (Tenormin) 50 mg DAILY ORAL 07/30/16 09:00 08/29/16 08:59 08/02/16 08:24 Atorvastatin Calcium (Lipitor) 20 mg BEDTIME ORAL 07/31/16 21:00 08/30/16 20:59 08/01/16 20:55 Clonidine HCl (Catapres) 0.1 mg EVERY 4 HOURS PRN ORAL sbp more than 160 07/29/16 21:45 08/28/16 21:44 Dextrose (Dextrose 50%) STAT PRN IV Hypoglycemia 07/31/16 06:45 08/30/16 06:44 Heparin Sodium (Porcine) (Heparin 5000 units/ml) 5,000 units EVERY 12 HOURS SUBQ 07/30/16 09:00 08/29/16 08:59 08/02/16 08:24 Insulin Aspart (NovoLOG) Q6HR SUBQ 07/31/16 12:00 08/30/16 11:59 08/02/16 11:24 Insulin Aspart (NovoLOG) 5 units NOVOTIAC SUBQ 07/31/16 16:50 08/30/16 16:49 08/02/16 11:24 Insulin Detemir (Levemir) 15 units QHS SUBQ 08/02/16 21:00 09/01/16 20:59 Metformin HCl (Glucophage) 500 mg TIAC ORAL 07/31/16 11:30 08/30/16 11:29 08/02/16 16:06 Morphine Sulfate (Morphine Sulfate) 2 mg EVERY 4 HOURS PRN IVP severe pain 7-10 07/29/16 21:45 08/05/16 21:44 08/02/16 16:00 Nitroglycerin (Ntg) 0.4 mg Q5M X 3 DOSES PRN SL Prn Chest Pain 07/29/16 21:45 08/28/16 21:44 Ondansetron HCl (Zofran) 4 mg Q6H PRN IVP Nausea & Vomiting 07/29/16 21:45 08/28/16 21:44 Pantoprazole (Protonix) 40 mg DAILY ORAL 07/31/16 11:15 08/30/16 11:14 08/02/16 08:24 Polyethylene Glycol (Miralax) 17 gm HSPRN PRN ORAL Constipation 07/29/16 21:45 08/28/16 21:44 Temazepam (Restoril) 15 mg HSPRN PRN ORAL Insomnia 07/29/16 21:45 08/05/16 21:44 07/31/16 21:26 MARY ANN DUEÑAS Aug 02, 2016 16:37
[2016-08-02 20:00] VITALS: BP 131/77
[2016-08-02] MEDS: Atorvastatin 20mg tab ORAL SCH (20:28)
[2016-08-02] MEDS ORDERED: Levemir Flexpen SUBQ SCH (21:00)
[2016-08-03] MEDS: Morphine Sulfate 2mg/ml Inj IVP PRN ×3 (00:35→08:32)
[2016-08-03] MEDS: NovoLOG Insulin Flexpen SUBQ SCH ×3 (00:36→05:48)
[2016-08-03 04:00] VITALS: BP 116/81
[2016-08-03] MEDS: metFORMIN 500mg tab ORAL SCH (05:45)
--- NOTE | 2016-08-03 06:56 | General Progress Note ---
Assessment/Plan Problem List: (1) Diabetes mellitus type 2, uncontrolled, with complications ICD Codes: E11.8 - Diabetes mellitus type 2, uncontrolled, with complications SNOMED: [id number] Assessment/Plan glycemic control is improving continue Levemir 15 units qhs continue Novolog 5 units ac tid continue Metformin 500 mg continue SSI Subjective Allergies: Coded Allergies: No Known Allergies (Unverified , 10/15/12) All Systems: reviewed and negative except above Subjective events noted - interval notes reviewed Objective Last 24 Hour Vital Signs Date Time Temp Pulse Resp B/P Pulse Ox O2 Delivery O2 Flow Rate FiO2 08/03/16 05:07 98.2 08/03/16 04:00 98.1 76 18 116/81 98 Room Air 08/03/16 04:00 98.1 76 18 116/81 98 08/02/16 20:00 98.2 75 18 131/77 98 Room Air 08/02/16 19:54 72 18 Room Air 21 08/02/16 16:15 97.9 70 18 145/83 99 Room Air 08/02/16 11:58 97.9 69 21 145/80 96 Room Air 08/02/16 08:24 83 131/77 08/02/16 08:08 97.2 83 20 131/77 96 Room Air Intake and Output 08/02/16 08/03/16 19:00 07:00 Intake Total 840 ml 740 ml Output Total 500 ml Balance 840 ml 240 ml Intake Oral 440 ml 740 ml IV Total 400 ml Output Urine Total 500 ml # Voids 2 4 Laboratory Tests 08/03/16 06:30: White Blood Count [Pending], Red Blood Count [Pending], Hemoglobin [Pending], Hematocrit [Pending], Mean Corpuscular Volume [Pending], Mean Corpuscular Hemoglobin [Pending], Mean Corpuscular Hemoglobin Concent [Pending], Red Cell Distribution Width [Pending], Platelet Count [Pending], Mean Platelet Volume [ Pending], Neutrophils (%) (Auto) [Pending], Lymphocytes (%) (Auto) [Pending], Monocytes (%) (Auto) [Pending], Eosinophils (%) (Auto) [Pending], Basophils (%) (Auto) [Pending], Sodium Level [Pending], Potassium Level [Pending], Chloride Level [Pending], Carbon Dioxide Level [Pending], Blood Urea Nitrogen [Pending], Creatinine [Pending], Estimat Glomerular Filtration Rate [Pending], Glucose Level [Pending], Uric Acid [Pending], Calcium Level [Pending], Phosphorus Level [Pending], Magnesium Level [Pending], Total Bilirubin [Pending], Gamma Glutamyl Transpeptidase [Pending], Aspartate Amino Transf (AST/SGOT) [Pending], Alanine Aminotransferase (ALT/SGPT) [Pending], Alkaline Phosphatase [Pending], C- Reactive Protein, Quantitative [Pending], Pro-B-Type Natriuretic Peptide [ Pending], Total Protein [Pending], Albumin [Pending], Globulin [Pending] Height (Feet): 5 Height (Inches): 9.00 Weight (Pounds): 138 General Appearance: no apparent distress Neck: normal alignment Cardiovascular: normal rate Respiratory/Chest: lungs clear Abdomen: normal bowel sounds Objective Current Medications Medications (Trade) Dose Ordered Sig/Juan Route PRN Reason Start Time Stop Time Status Last Admin Dose Admin Acetaminophen (Tylenol) 650 mg Q4H PRN ORAL fever 07/29/16 21:45 08/28/16 21:44 Albuterol/ Ipratropium (DuoNeb 0.5-3(2.5)mg/3ml) 3 ml EVERY 4 HOURS PRN HHN Shortness of Breath 07/29/16 21:45 08/03/16 21:44 Aspirin (ASA) 81 mg DAILY NG 07/30/16 09:00 08/29/16 08:59 08/02/16 08:24 Atenolol (Tenormin) 50 mg DAILY ORAL 07/30/16 09:00 08/29/16 08:59 08/02/16 08:24 Atorvastatin Calcium (Lipitor) 20 mg BEDTIME ORAL 07/31/16 21:00 08/30/16 20:59 08/02/16 20:28 Clonidine HCl (Catapres) 0.1 mg EVERY 4 HOURS PRN ORAL sbp more than 160 07/29/16 21:45 08/28/16 21:44 Dextrose (Dextrose 50%) STAT PRN IV Hypoglycemia 07/31/16 06:45 08/30/16 06:44 Heparin Sodium (Porcine) (Heparin 5000 units/ml) 5,000 units EVERY 12 HOURS SUBQ 07/30/16 09:00 08/29/16 08:59 08/02/16 20:31 Insulin Aspart (NovoLOG) Q6HR SUBQ 07/31/16 12:00 08/30/16 11:59 08/03/16 05:47 Insulin Aspart (NovoLOG) 5 units NOVOTIAC SUBQ 07/31/16 16:50 08/30/16 16:49 08/03/16 05:48 Insulin Detemir (Levemir) 15 units QHS SUBQ 08/02/16 21:00 09/01/16 20:59 08/02/16 20:29 Metformin HCl (Glucophage) 500 mg TIAC ORAL 07/31/16 11:30 08/30/16 11:29 08/03/16 05:45 Morphine Sulfate (Morphine Sulfate) 2 mg EVERY 4 HOURS PRN IVP severe pain 7-10 07/29/16 21:45 08/05/16 21:44 08/03/16 04:33 Nitroglycerin (Ntg) 0.4 mg Q5M X 3 DOSES PRN SL Prn Chest Pain 07/29/16 21:45 08/28/16 21:44 Ondansetron HCl (Zofran) 4 mg Q6H PRN IVP Nausea & Vomiting 07/29/16 21:45 08/28/16 21:44 08/02/16 23:25 Pantoprazole (Protonix) 40 mg DAILY ORAL 07/31/16 11:15 08/30/16 11:14 08/02/16 08:24 Polyethylene Glycol (Miralax) 17 gm HSPRN PRN ORAL Constipation 07/29/16 21:45 08/28/16 21:44 Temazepam (Restoril) 15 mg HSPRN PRN ORAL Insomnia 07/29/16 21:45 08/05/16 21:44 07/31/16 21:26 Item Value Date Time Bedside Blood Glucose 140 mg/dl H 08/03/16 0601 Bedside Blood Glucose 222 mg/dl H 08/03/16 0036 Bedside Blood Glucose 126 mg/dl H 08/02/16 2200 Bedside Blood Glucose 273 mg/dl H 08/02/16 1736 Bedside Blood Glucose 261 mg/dl H 08/02/16 1130 Bedside Blood Glucose 161 mg/dl H 08/02/16 0600 DEBBIE ZULETA Aug 03, 2016 06:56
[2016-08-03 07:04] LABS: BASOPHILS % (AUTO) 1.4 % (0.0-2.0); EOSINOPHILS % (AUTO) 3.2 % (0.0-3.0); LYMPHOCYTES % (AUTO) 42.3 % (20.0-45.0); MEAN CORPUSCULAR HEMOGLOBIN 29.6 PG (27.0-31.0); MEAN CORPUSCULAR VOLUME 87 FL (80-99); MEAN PLATELET VOLUME 7.6 FL (6.5-10.1); MONOCYTES % (AUTO) 9.5 % (1.0-10.0); NEUTROPHILS % (AUTO) 43.7 % (45.0-75.0); PLATELET COUNT 223 K/UL (150-450); RED BLOOD COUNT 4.04 M/UL (4.20-5.40); RED CELL DISTRIBUTION WIDTH 12.9 % (11.6-14.8); WHITE BLOOD COUNT 5.9 K/UL (4.8-10.8)
[2016-08-03 07:20] LABS: ALANINE AMINOTRANSFERASE 22 U/L (3-33); ALBUMIN/GLOBULIN RATIO 1.2 (1.0-2.7); ANION GAP 10 (5-15); ASPARTATE AMINO TRANSFERASE 21 U/L (5-40); CALCIUM 9.5 mg/dL (8.6-10.2); CARBON DIOXIDE 26 mEQ/L (20-30); CHLORIDE 103 mEQ/L (98-107); CREATININE 0.8 mg/dL (0.5-0.9); CRP QUANT < 0.3 mg/dL (< 0.5); HEMOLYSIS 3; MAGNESIUM 1.4 mg/dL (1.7-2.5); PHOSPHORUS 3.9 mg/dL (2.5-4.8); POTASSIUM 4.9 mEQ/L (3.4-4.9); SODIUM 139 mEQ/L (135-145); TOTAL PROTEIN 5.5 g/dL (6.6-8.7); URIC ACID 5.6 mg/dL (3.0-7.5)
[2016-08-03 08:00] VITALS: BP 135/80
[2016-08-03] MEDS: Aspirin Baby 81mg NG SCH (08:31)
[2016-08-03 08:32] VITALS: BP 135/80
[2016-08-03] MEDS: Heparin 5000 units/ml inj SUBQ SCH (08:34)
--- NOTE | 2016-08-03 09:54 | General Progress Note ---
Assessment/Plan Status: stable Assessment/Plan - Dehydration- HypoNatremia, HyperKalemia ( CORRECTED) Other: DM OOC HTN High Cholestrol h/o H Pylori h/o Alcohol abuse Plan: No labs today- stop IV flyuid- Monitor lytes and renal parameters- Keep BP and BS in check Per orders. ? DC planning? Subjective ROS Limited/Unobtainable: No Allergies: Coded Allergies: No Known Allergies (Unverified , 10/15/12) Objective Last 24 Hour Vital Signs Date Time Temp Pulse Resp B/P Pulse Ox O2 Delivery O2 Flow Rate FiO2 08/03/16 08:32 80 135/80 08/03/16 08:00 97.5 80 18 135/80 98 Room Air 08/03/16 05:07 98.2 08/03/16 04:00 98.1 76 18 116/81 98 Room Air 08/03/16 04:00 98.1 76 18 116/81 98 08/02/16 20:00 98.2 75 18 131/77 98 Room Air 08/02/16 19:54 72 18 Room Air 21 08/02/16 16:15 97.9 70 18 145/83 99 Room Air 08/02/16 11:58 97.9 69 21 145/80 96 Room Air Intake and Output 08/02/16 08/03/16 19:00 07:00 Intake Total 840 ml 740 ml Output Total 500 ml Balance 840 ml 240 ml Intake Oral 440 ml 740 ml IV Total 400 ml Output Urine Total 500 ml # Voids 2 4 Laboratory Tests 08/03/16 06:30: White Blood Count 5.9, Red Blood Count 4.04L, Hemoglobin 11.9L, Hematocrit 35.1L , Mean Corpuscular Volume 87, Mean Corpuscular Hemoglobin 29.6, Mean Corpuscular Hemoglobin Concent 34.0, Red Cell Distribution Width 12.9, Platelet Count 223, Mean Platelet Volume 7.6, Neutrophils (%) (Auto) 43.7L, Lymphocytes ( %) (Auto) 42.3, Monocytes (%) (Auto) 9.5, Eosinophils (%) (Auto) 3.2H, Basophils (%) (Auto) 1.4, Sodium Level 139, Potassium Level 4.9, Chloride Level 103, Carbon Dioxide Level 26, Anion Gap 10, Blood Urea Nitrogen 18, Creatinine 0.8, Estimat Glomerular Filtration Rate , Glucose Level 151H, Uric Acid 5.6, Calcium Level 9.5, Phosphorus Level 3.9, Magnesium Level 1.4L, Total Bilirubin 0.2, Gamma Glutamyl Transpeptidase 35, Aspartate Amino Transf (AST/SGOT) 21, Alanine Aminotransferase (ALT/SGPT) 22, Alkaline Phosphatase 83, C-Reactive Protein, Quantitative < 0.3, Pro-B-Type Natriuretic Peptide 2293H, Total Protein 5.5L, Albumin 3.1L, Globulin 2.4, Albumin/Globulin Ratio 1.2 Height (Feet): 5 Height (Inches): 9.00 Weight (Pounds): 138 General Appearance: no apparent distress Objective no change in physical exam DANIELITO MESA Aug 03, 2016 09:54
--- NOTE | 2016-08-04 16:20 | Discharge Summary ---
Discharge Summary Hospital Course Date of Admission Jul 29, 2016 at 20:57 Date of Discharge Aug 03, 2016 at 10:53 Admitting Diagnosis hyperglycemia/weakness HPI Sharath Alvarenga is a 75 year old female who was admitted on Jul 29, 2016 at 20: 57 for Hyperglycemia; Weakness Hospital Course [id number] Discharge Discharge Disposition Patient was discharged to Home with Home Health(06) Discharge Diagnoses: Terri Valle NP Aug 04, 2016 16:20
--- NOTE | 2016-08-05 08:18 | Discharge Summary 2 SIG ---
DATE OF ADMISSION: 07/29/2016 DATE OF DISCHARGE: 08/03/2016 CONSULTANTS: 1. Raul Garcia M.D. 2. Deonte Chatterjee M.D. BRIEF HOSPITAL COURSE: The patient is a 75-year-old female, who presented to the ED as she has been feeling weak for the last several weeks. Blood sugar was high. She has history of diabetes mellitus, and on metformin. Workup at ED revealed blood glucose about 500, but no evidence of DKA. She had elevated anion gap and elevated azotemia. Sodium was 130. Urine was negative for ketones and no evidence of UTI. She was given IV isotonic fluids and started on insulin drip, premeal short acting and basal insulin. She was followed up by Dr. Garcia and Dr. Chatterjee. Hemoglobin A1c was 16. Thyroid TSH was within normal limits. The patient has acute renal failure with ATN likely prerenal component secondary to dehydration. Creatinine improved with IV hydration. She was continued on 500 mg of metformin with 5 units NovoLog before meals t.i.d. and Levemir 15 mg at nightly. Electrolyte imbalances were corrected. IV hydration was discontinued and the patient was eventually discharged home. Stressed medication compliance and to follow up with PMD as outpatient. FINAL DIAGNOSES: 1. Diabetes mellitus, type 2 out of control. 2. Dehydration. 3. Hyponatremia. 4. Hyperkalemia. 5. High cholesterol. 6. Hypertension. 7. Acute kidney injury. 8. History of alcohol abuse. 9. Generalized weakness likely secondary to hyperglycemia. Adelaida Kasper M.D. I have been assigned to dictate discharge summary on this account and I was not involved in the patient's management. Terri Valle N.P. DR: Raad JOB#: [id number] CC: USAMA
== END 2016-08-03 10:53 | disposition home or self-care (01) | DRG 420 ==
LOC: ENRESERVTM → ENRESERVDT → EDBD 18:20 → EMR 19:07 → EDBEDREQ 20:03 → 4W 20:57 → 3E 07-31 06:53
DX: E11.65 Type 2 diabetes mellitus with hyperglycemia (principal); N17.9 Acute kidney failure, unspecified; E86.0 Dehydration; E87.5 Hyperkalemia; E87.1 Hypo-osmolality and hyponatremia; E78.5 Hyperlipidemia, unspecified; Z79.82 Long term (current) use of aspirin; I10 Essential (primary) hypertension; E78.00 Pure hypercholesterolemia, unspecified; F10.10 Alcohol abuse, uncomplicated; R11.10 Vomiting, unspecified; R53.1 Weakness; Z87.19 Personal history of other diseases of the digestive system
CPT/HCPCS: 36415; 80048; 80053; 80061; 81003; 82009; 82962; 82977; 83036; 83735; 83880; 84100; 84443; 84550; 85007; 85025; 86140; 94664; J1815; J2405; S5561

== ENCOUNTER 2016-08-08 13:16 | Inpatient (IN) | payer MEDICAID, MEDICARE ==
[2016-08-08] VITALS (7 sets, daily range): BP systolic 17–165; BP diastolic 77–98
[~2016-08-08] VITALS: Ht 170.2 cm; Wt 61.2 kg
[~2016-08-08 13:16] MED LIST changes: +LEVEMIR FL100 UNIT/1 SUBQ; +NOVOLOG100 UNITS1 SUBQ; -NovoLOG Insulin Flexpen SUBQ SCH
[2016-08-08 14:31] LABS: BASOPHILS % (AUTO) 2.8 % (0.0-2.0); EOSINOPHILS % (AUTO) 2.9 % (0.0-3.0); MEAN CORPUSCULAR HEMOGLOBIN 29.2 PG (27.0-31.0); MEAN CORPUSCULAR HGB CONC 33.4 G/DL (32.0-36.0); MEAN CORPUSCULAR VOLUME 88 FL (80-99); MEAN PLATELET VOLUME 6.9 FL (6.5-10.1); MONOCYTES % (AUTO) 10.8 % (1.0-10.0); NEUTROPHILS % (AUTO) 39.5 % (45.0-75.0); PLATELET COUNT 316 K/UL (150-450); RED CELL DISTRIBUTION WIDTH 11.9 % (11.6-14.8); WHITE BLOOD COUNT 3.8 K/UL (4.8-10.8)
--- NOTE | 2016-08-08 14:46 | Diagnostic Imaging Report ---
Indications: , Dizziness Technique: Portable AP chest Findings: Comparison: 05/23/16 Left lung base volume loss with hemidiaphragmatic distortion and probable parenchymal scarring unchanged. Left lung remains clear. Cardiomediastinal silhouette stable. No pleural abnormality demonstrated. Aortic arch calcification, thoracic vertebral osteophytes again noted. IMPRESSION: No evidence of acute cardiopulmonary disease, unchanged Stable chronic changes as described
[2016-08-08 14:47] LABS: ALANINE AMINOTRANSFERASE 14 U/L (3-33); ANION GAP 17 (5-15); ASPARTATE AMINO TRANSFERASE 21 U/L (5-40); CARBON DIOXIDE 24 mEQ/L (20-30); CHLORIDE 86 mEQ/L (98-107); HEMOLYSIS 21; MAGNESIUM 1.8 mg/dL (1.7-2.5); POTASSIUM 4.4 mEQ/L (3.4-4.9); SODIUM 127 mEQ/L (135-145); TOTAL PROTEIN 7.5 g/dL (6.6-8.7); TROPONIN I < 0.30 ng/mL (<=0.30)
[2016-08-08 14:56] LABS: APPEARANCE,URINE CLEAR; KETONES,URINE NEGATIVE (NEGATIVE); LEUKOCYTE ESTERASE ,URINE NEGATIVE (NEGATIVE); NITRITE,URINE NEGATIVE (NEGATIVE); PH,URINE 7 (4.5-8.0); PROTEIN,URINE 2+ (NEGATIVE); UROBILINOGEN,URINE NORMAL MG/DL (0.0-1.0)
[2016-08-08 14:57] LABS: CKMB < 1.5 ng/mL (< 3.8)
[2016-08-08 15:05] LABS: BACTERIA,URINE OCCASIONAL /HPF; SQUAMOUS EPITHELIAL CELL,UR FEW /LPF (NONE/OCC); WBC,URINE 0-2 /HPF (0 - 2)
--- NOTE | 2016-08-08 16:17 | Emergency Room Report ---
History of Present Illness General Chief Complaint: General Complaint Source: Patient, EMS (INGRID BRUNNER M.D.) Source: Patient (VAZQUEZ ARREDONDO D.O.) Present Illness HPI 75-year-old female presents to ED for evaluation. Patient states that her blood sugar has been critically high. 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 Patient states she recently admitted to the hospital for uncontrolled diabetes. Patient states she feels fine otherwise. Denies any dizziness or weakness. denies chest pain or shortness of breath. Denies fevers or chills. No other aggravating relieving factors. Denies any other associated symptoms (INGRID BRUNNER M.D.) HPI Patient reports that she was recently here with high blood sugar She reports that she was recently discharged However at home she has been having difficulty obtaining insulin Her home health nurse saw her today Dispensed 5 units of insulin And call paramedics as her sugar was elevated at patient was also having problems controlling her blood pressure Denies any headache she does report upper back pain Denies any vomiting or diarrhea Denies any dysuria frequency (VAZQUEZ ARREDONDO.Cristobal) Allergies: Coded Allergies: No Known Allergies (Unverified , 10/15/12) Patient History Past Medical History: DM, HTN, asthma Past Surgical History: none Pertinent Family History: none Social History: Denies: alcohol use, drug use, smoking Now: No Immunizations: UTD Reviewed Nursing Documentation: PMH: Agreed, PSxH: Agreed (INGRID BRUNNER M.D.) Past Medical History: see triage record Pertinent Family History: none Reviewed Nursing Documentation: PMH: Agreed, PSxH: Agreed (VAZQUEZ ARREDONDO D.O.) Nursing Documentation-PMH Hx Hypertension: Yes Hx Asthma: Yes Hx Diabetes: Yes Hx Cancer: No Hx Gastrointestinal Problems: No Hx Neurological Problems: No (INGRID BRUNNER M.D.) Review of Systems All Other Systems: negative except mentioned in HPI (INGRID BRUNNER M.D.) All Other Systems: negative except mentioned in HPI (VAZQUEZ ARREDONDO D.O.) Physical Exam Vital Signs Date Time Temp Pulse Resp B/P Pulse Ox O2 Delivery O2 Flow Rate FiO2 08/08/16 13:05 98.1 86 16 198/110 98 Room Air Sp02 EP Interpretation: reviewed, normal General Appearance: no apparent distress, alert, GCS 15, non-toxic Head: normocephalic, atraumatic Eyes: bilateral eye PERRL, bilateral eye normal inspection ENT: hearing grossly normal, normal pharynx, no angioedema, normal voice Neck: full range of motion, supple/symm/no masses Respiratory: chest non-tender, lungs clear, normal breath sounds, speaking full sentences Cardiovascular #1: regular rate, rhythm, no edema Cardiovascular #2: 2+ carotid (R), 2+ carotid (L), 2+ radial (R), 2+ radial (L) , 2+ dorsalis pedis (R), 2+ dorsalis pedis (L) Gastrointestinal: normal bowel sounds, non tender, soft, non-distended, no guarding, no rebound Rectal: deferred Genitourinary: normal inspection, no CVA tenderness Musculoskeletal: back normal, gait/station normal, normal range of motion, non- tender Neurologic: alert, oriented x3, responsive, motor strength/tone normal, sensory intact, speech normal Psychiatric: judgement/insight normal, memory normal, mood/affect normal, no suicidal/homicidal ideation Reflexes: 3+ bicep (R), 3+ bicep (L), 3+ tricep (R), 3+ tricep (L), 3+ knee (R) , 3+ knee (L) Skin: normal color, no rash, warm/dry, well hydrated Lymphatic: no adenopathy (INGRID BRUNNER M.D.) Sp02 EP Interpretation: reviewed, normal General Appearance: well appearing, no apparent distress Head: normocephalic, atraumatic Eyes: bilateral eye EOMI, bilateral eye PERRL ENT: hearing grossly normal, normal pharynx, TMs + canals normal, uvula midline Neck: full range of motion, supple, no meningismus, no bony tend Respiratory: lungs clear, normal breath sounds, no rhonchi, no respiratory distress, no retraction, no accessory muscle use Cardiovascular #1: normal peripheral pulses, regular rate, rhythm, no edema, no gallop, no JVD, no murmur Gastrointestinal: normal bowel sounds, non tender, soft, no mass, no organomegaly, non-distended, no guarding, no hernia, no pulsatile mass, no rebound Genitourinary: no CVA tenderness Musculoskeletal: normal inspection Neurologic: oriented x3, responsive, 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 as tested, motor strength/ tone normal, sensory intact Psychiatric: mood/affect normal Skin: normal color, no rash, warm/dry, palpation normal Lymphatic: normal inspection, no adenopathy (VAZQUEZ ARREDONDO D.O.) Medical Decision Making Diagnostic Impression: Primary Impression: Hyperglycemia Additional Impression: Hyponatremia ER Course Patient's blood work here is abnormal Showing signs of hyperglycemia with hyponatremia No signs of any acidosis however Patient was further hydrated provided with insulin Patient appears to have a very poor disposition at home and requires further inpatient care Labs Test 08/08/16 14:10 08/08/16 14:37 White Blood Count 3.8 K/UL (4.8-10.8) Red Blood Count 4.50 M/UL (4.20-5.40) Hemoglobin 13.2 G/DL (12.0-16.0) Hematocrit 39.5 % (37.0-47.0) Mean Corpuscular Volume 88 FL (80-99) Mean Corpuscular Hemoglobin 29.2 PG (27.0-31.0) Mean Corpuscular Hemoglobin Concent 33.4 G/DL (32.0-36.0) Red Cell Distribution Width 11.9 % (11.6-14.8) Platelet Count 316 K/UL (150-450) Mean Platelet Volume 6.9 FL (6.5-10.1) Neutrophils (%) (Auto) 39.5 % (45.0-75.0) Lymphocytes (%) (Auto) 44.0 % (20.0-45.0) Monocytes (%) (Auto) 10.8 % (1.0-10.0) Eosinophils (%) (Auto) 2.9 % (0.0-3.0) Basophils (%) (Auto) 2.8 % (0.0-2.0) Sodium Level 127 mEQ/L (135-145) Potassium Level 4.4 mEQ/L (3.4-4.9) Chloride Level 86 mEQ/L (98-107) Carbon Dioxide Level 24 mEQ/L (20-30) Anion Gap 17 (5-15) Blood Urea Nitrogen 17 mg/dL (7-23) Creatinine 1.0 mg/dL (0.5-0.9) Estimat Glomerular Filtration Rate mL/min (>60) Glucose Level 544 mg/dL (74-106) Calcium Level 10.0 mg/dL (8.6-10.2) Magnesium Level 1.8 mg/dL (1.7-2.5) Total Bilirubin 0.2 mg/dL (0.0-1.2) Aspartate Amino Transf (AST/SGOT) 21 U/L (5-40) Alanine Aminotransferase (ALT/SGPT) 14 U/L (3-33) Alkaline Phosphatase 132 U/L (35-104) Total Creatine Kinase 36 U/L (26-140) Creatine Kinase MB < 1.5 ng/mL (< 3.8) Creatine Kinase MB Relative Index 4.1 Troponin I < 0.30 ng/mL (<=0.30) Total Protein 7.5 g/dL (6.6-8.7) Albumin 3.9 g/dL (3.5-5.2) Globulin 3.6 g/dL Albumin/Globulin Ratio 1.0 (1.0-2.7) Acetone Level Negative (NEGATIVE) Urine Color Yellow Urine Appearance Clear Urine pH 7 (4.5-8.0) Urine Specific [place] 1.005 (1.005-1.035) Urine Protein 2+ (NEGATIVE) Urine Glucose (UA) 4+ (NEGATIVE) Urine Ketones Negative (NEGATIVE) Urine Occult Blood 4+ (NEGATIVE) Urine Nitrite Negative (NEGATIVE) Urine Bilirubin Negative (NEGATIVE) Urine Urobilinogen Normal MG/DL (0.0-1.0) Urine Leukocyte Esterase Negative (NEGATIVE) Urine RBC 5-10 /HPF (0 - 2) Urine WBC 0-2 /HPF (0 - 2) Urine Squamous Epithelial Cells Few /LPF (NONE/OCC) Urine Bacteria Occasional /HPF (NONE) (VAZQUEZ ARREDONDO D.O.) Rhythm Strip Diag. Results EP Interpretation: yes Rate: 77 Rhythm: NSR, no PVC's, no ectopy (VAZQUEZ ARREDONDO D.O.) Chest X-Ray Diagnostic Results EP Interpretation: Yes Findings: no effusion, no pneumothorax, other - tinting left lower lobe similar to previous Number of Views: 1 (VAZQUEZ ARREDONDO D.O.) Last Vital Signs Date Time Temp Pulse Resp B/P Pulse Ox O2 Delivery O2 Flow Rate FiO2 08/08/16 15:40 97.6 73 14 17/93 100 Room Air (INGRID BRUNNER M.D.) Status: improved (VAQZUEZ ARREDONDO D.O.) Disposition: ADMITTED INPATIENT Condition: Serious Referrals: NON PHYSICIAN (PCP) INGRID BRUNNER M.D. Aug 08, 2016 16:17 VAZQUEZ ARREDONDO D.O. Aug 08, 2016 18:50
[2016-08-08] MEDS ORDERED: DuoNeb 0.5-3(2.5)mg/3ml neb HHN PRN (16:30)
[2016-08-08] MEDS ORDERED: Nitroglycerin Subl 0.4mg tab (Bottle Of 25) SL PRN (16:30)
[2016-08-08] MEDS ORDERED: Mylanta II UD 30ml ORAL PRN (16:30)
[2016-08-08] MEDS ORDERED: Miralax 17gm pkt ORAL PRN (16:30)
[2016-08-08] MEDS: NovoLOG Insulin Flexpen SUBQ SCH ×2 (17:38→20:57)
[2016-08-08] MEDS: metFORMIN 500mg tab ORAL SCH (17:55)
[2016-08-08] MEDS: Morphine Sulfate 2mg/ml Inj IVP PRN (18:55)
[2016-08-08] MEDS ORDERED: RESTASIS1 EACH BOTH EYES (19:12)
[2016-08-08] MEDS ORDERED: MIRTAZAPINE15 M1 ORAL (19:12)
[2016-08-08] MEDS: Heparin 5000 units/ml inj SUBQ SCH (20:56)
--- NOTE | 2016-08-08 23:39 | History and Physical ---
History of Present Illness General Date patient seen: Aug 08, 2016 Reason for Hospitalization: General Complaint Present Illness HPI 75 year old female with hx of DM, ETOH abuse, pancreatitis in the past, who was [place] [facility] [place] because of high blood sugar levels. Her Bs was around 500 in ER, therefore she is admitted for treating her hyperglycemia. Allergies: Coded Allergies: No Known Allergies (Unverified , 10/15/12) Medication History Scheduled Aspirin* (Aspirin*), 81 MG NG DAILY Atenolol* (Tenormin*), 50 MG ORAL DAILY, (Reported) Atorvastatin Calcium* (Lipitor*), 40 MG ORAL BEDTIME Cyclosporine (Restasis), 1 DROP BOTH EYES EVERY 12 HOURS, (Reported) Dorzolamide Hcl/Timolol Maleat (Cosopt Eye Drops), 10 ML OP BID, (Reported) Glimepiride* (Glimepiride*), 2 MG ORAL BEFORE BREAKFAST Ibuprofen* (Motrin*), 600 MG ORAL THREE TIMES A DAY Insulin Aspart (Novolog Flexpen), 5 UNITS SUBQ NOVOTIAC Insulin Detemir (Levemir Flexpen), 15 UNITS SUBQ QHS Metformin Hcl* (Metformin Hcl*), 1,000 MG ORAL TWICE A DAY Metformin Hcl* (Glucophage*), 500 MG ORAL TIAC Mirtazapine (Mirtazapine), 15 MG ORAL BEDTIME, (Reported) Omeprazole (Omeprazole), 20 MG ORAL DAILY, (Reported) Miscellaneous Medications Unable to Obtain Medications (Unable To Obtain Meds), (Reported) Durable Medical Equipment Walker (Ultra-Light Rollator), 1 EACH , (DME) Patient History Healthcare decision maker Resuscitation status Full Code Advanced Directive on File Past Medical/Surgical History Past Medical/Surgical History: (1) Diabetes mellitus type 2, uncontrolled, with complications (2) Alcohol abuse (3) Hepatitis B Family History Family History: Patient reports no known family medical history. 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 therapy technician II-XII grossly normal Last 24 Hour Vital Signs Date Time Temp Pulse Resp B/P Pulse Ox O2 Delivery O2 Flow Rate FiO2 08/08/16 19:00 97.9 94 20 139/77 98 Room Air 08/08/16 17:16 97.7 82 16 148/90 100 Room Air 08/08/16 17:00 97.7 85 20 148/90 100 Room Air 08/08/16 16:47 97.9 85 16 148/79 100 Room Air 08/08/16 16:41 97.9 85 16 148/79 100 Room Air 08/08/16 16:31 97.9 71 14 165/98 100 Room Air 08/08/16 16:24 165/98 08/08/16 15:40 97.6 73 14 17/93 100 Room Air 08/08/16 14:34 86 20 162/96 97 Room Air 08/08/16 13:05 98.1 86 16 198/110 98 Room Air Laboratory Tests Test 08/08/16 14:10 08/08/16 14:37 White Blood Count 3.8 K/UL (4.8-10.8) L Red Blood Count 4.50 M/UL (4.20-5.40) Hemoglobin 13.2 G/DL (12.0-16.0) Hematocrit 39.5 % (37.0-47.0) Mean Corpuscular Volume 88 FL (80-99) Mean Corpuscular Hemoglobin 29.2 PG (27.0-31.0) Mean Corpuscular Hemoglobin Concent 33.4 G/DL (32.0-36.0) Red Cell Distribution Width 11.9 % (11.6-14.8) Platelet Count 316 K/UL (150-450) Mean Platelet Volume 6.9 FL (6.5-10.1) Neutrophils (%) (Auto) 39.5 % (45.0-75.0) L Lymphocytes (%) (Auto) 44.0 % (20.0-45.0) Monocytes (%) (Auto) 10.8 % (1.0-10.0) H Eosinophils (%) (Auto) 2.9 % (0.0-3.0) Basophils (%) (Auto) 2.8 % (0.0-2.0) H Sodium Level 127 mEQ/L (135-145) L Potassium Level 4.4 mEQ/L (3.4-4.9) Chloride Level 86 mEQ/L (98-107) L Carbon Dioxide Level 24 mEQ/L (20-30) Anion Gap 17 (5-15) H Blood Urea Nitrogen 17 mg/dL (7-23) Creatinine 1.0 mg/dL (0.5-0.9) H Estimat Glomerular Filtration Rate mL/min (>60) Glucose Level 544 mg/dL (74-106) *H Calcium Level 10.0 mg/dL (8.6-10.2) Magnesium Level 1.8 mg/dL (1.7-2.5) Total Bilirubin 0.2 mg/dL (0.0-1.2) Aspartate Amino Transf (AST/SGOT) 21 U/L (5-40) Alanine Aminotransferase (ALT/SGPT) 14 U/L (3-33) Alkaline Phosphatase 132 U/L (35-104) H Total Creatine Kinase 36 U/L (26-140) Creatine Kinase MB < 1.5 ng/mL (< 3.8) Creatine Kinase MB Relative Index 4.1 Troponin I < 0.30 ng/mL (<=0.30) Total Protein 7.5 g/dL (6.6-8.7) Albumin 3.9 g/dL (3.5-5.2) Globulin 3.6 g/dL Albumin/Globulin Ratio 1.0 (1.0-2.7) Acetone Level Negative (NEGATIVE) Urine Color Yellow Urine Appearance Clear Urine pH 7 (4.5-8.0) Urine Specific [place] 1.005 (1.005-1.035) Urine Protein 2+ (NEGATIVE) H Urine Glucose (UA) 4+ (NEGATIVE) H Urine Ketones Negative (NEGATIVE) Urine Occult Blood 4+ (NEGATIVE) H Urine Nitrite Negative (NEGATIVE) Urine Bilirubin Negative (NEGATIVE) Urine Urobilinogen Normal MG/DL (0.0-1.0) Urine Leukocyte Esterase Negative (NEGATIVE) Urine RBC 5-10 /HPF (0 - 2) H Urine WBC 0-2 /HPF (0 - 2) Urine Squamous Epithelial Cells Few /LPF (NONE/OCC) Urine Bacteria Occasional /HPF (NONE) Height (Feet): 5 Height (Inches): 7.00 Weight (Pounds): 135 Medications Current Medications Medications (Trade) Dose Ordered Sig/Juan Route PRN Reason Start Time Stop Time Status Last Admin Dose Admin Acetaminophen (Tylenol) 650 mg Q4H PRN ORAL fever 08/08/16 16:30 09/07/16 16:29 Al Hydroxide/Mg Hydroxide (Mylanta II) 30 ml Q6H PRN ORAL dyspepsia 08/08/16 16:30 09/07/16 16:29 Albuterol/ Ipratropium (DuoNeb 0.5-3(2.5)mg/3ml) 3 ml Q4H PRN HHN Shortness of Breath 08/08/16 16:30 08/13/16 16:29 Aspirin (ASA) 81 mg DAILY NG 08/09/16 09:00 09/08/16 08:59 Atenolol (Tenormin) 50 mg DAILY ORAL 08/09/16 09:00 09/08/16 08:59 Atorvastatin Calcium (Lipitor) 40 mg BEDTIME ORAL 08/08/16 21:00 09/07/16 20:59 08/08/16 20:56 Clonidine HCl (Catapres) 0.1 mg Q4H PRN ORAL sbp more than 160 08/08/16 16:30 09/07/16 16:29 Dextrose (Dextrose 50%) STAT PRN IV Hypoglycemia 08/08/16 16:30 09/07/16 16:29 Heparin Sodium (Porcine) (Heparin 5000 units/ml) 5,000 units EVERY 12 HOURS SUBQ 08/08/16 21:00 09/07/16 20:59 08/08/16 20:56 Insulin Aspart (NovoLOG) BEFORE MEALS AND HS SUBQ 08/08/16 16:30 09/07/16 16:29 08/08/16 20:57 Metformin HCl 1000 mg 1,000 mg TWICE A DAY ORAL 08/08/16 18:00 09/07/16 17:59 08/08/16 17:55 Mirtazapine (Remeron) 15 mg BEDTIME ORAL 08/08/16 21:00 09/07/16 20:59 08/08/16 20:55 Morphine Sulfate (Morphine Sulfate) 2 mg Q4H PRN IVP severe pain 7-10 08/08/16 16:30 08/15/16 16:29 08/08/16 18:55 Nitroglycerin (Ntg) 0.4 mg Q5M X 3 DOSES PRN SL Prn Chest Pain 08/08/16 16:30 09/07/16 16:29 Ondansetron HCl (Zofran) 4 mg Q6H PRN IVP Nausea & Vomiting 08/08/16 16:30 09/07/16 16:29 Patient Own Medication (Patient's Own Med) 1 ea BID BOTH EYES 08/08/16 22:00 09/07/16 21:59 08/08/16 22:28 Polyethylene Glycol (Miralax) 17 gm HSPRN PRN ORAL Constipation 08/08/16 16:30 09/07/16 16:29 Sodium Chloride (Sodium Chloride 1000ml bag) 1,000 ml @ 100 mls/hr Q10H IVLG 08/08/16 17:00 09/07/16 16:59 08/08/16 17:55 Temazepam (Restoril) 15 mg HSPRN PRN ORAL Insomnia 08/08/16 16:30 08/15/16 16:29 Assessment/Plan Problem List: (1) Hyperglycemia due to type 2 diabetes mellitus ICD Codes: E11.65 - Type 2 diabetes mellitus with hyperglycemia SNOMED: 649629507528960 (2) Alcohol abuse ICD Codes: F10.10 - Alcohol abuse, uncomplicated SNOMED: 08220895, 07597132 (3) Hepatitis B ICD Codes: B19.10 - Unspecified viral hepatitis B without hepatic coma SNOMED: 49278764 Assessment/Plan Iv fluids sliding scale endo evaluation dc planning soon. MARY ANN DUEÑAS Aug 08, 2016 23:39
[2016-08-09] VITALS (7 sets, daily range): BP systolic 117–181; BP diastolic 64–103
[2016-08-09] MEDS: Morphine Sulfate 2mg/ml Inj IVP PRN ×5 (02:21→21:00)
[2016-08-09] MEDS: NovoLOG Insulin Flexpen SUBQ SCH ×7 (05:27→20:59)
[2016-08-09 06:30] LABS: BASOPHILS % (AUTO) 1.6 % (0.0-2.0); EOSINOPHILS % (AUTO) 4.8 % (0.0-3.0); LYMPHOCYTES % (AUTO) 52.4 % (20.0-45.0); MEAN CORPUSCULAR HEMOGLOBIN 29.5 PG (27.0-31.0); MEAN CORPUSCULAR HGB CONC 33.3 G/DL (32.0-36.0); MEAN CORPUSCULAR VOLUME 88 FL (80-99); MONOCYTES % (AUTO) 6.9 % (1.0-10.0); NEUTROPHILS % (AUTO) 34.4 % (45.0-75.0); PLATELET COUNT 301 K/UL (150-450); RED CELL DISTRIBUTION WIDTH 12.3 % (11.6-14.8); WHITE BLOOD COUNT 3.6 K/UL (4.8-10.8)
[2016-08-09 06:50] LABS: ALANINE AMINOTRANSFERASE 15 U/L (3-33); ANION GAP 14 (5-15); ASPARTATE AMINO TRANSFERASE 20 U/L (5-40); CALCIUM 9.4 mg/dL (8.6-10.2); CARBON DIOXIDE 26 mEQ/L (20-30); CHLORIDE 94 mEQ/L (98-107); CHOLESTEROL 230 mg/dL (< 200); CHOLESTEROL/HDL RATIO 3.5 (3.3-4.4); CREATININE 0.9 mg/dL (0.5-0.9); HEMOLYSIS 2; LDL CHOLESTEROL (CALC.) 148 mg/dL (60-99); SODIUM 134 mEQ/L (135-145); TOTAL PROTEIN 6.5 g/dL (6.6-8.7)
[2016-08-09 07:31] LABS: HEMOGLOBIN A1C 15.9 % (< 6.0)
[2016-08-09] MEDS: Aspirin Baby 81mg NG SCH (08:54)
[2016-08-09] MEDS: metFORMIN 500mg tab ORAL SCH ×2 (08:54→17:28)
[2016-08-09] MEDS: Heparin 5000 units/ml inj SUBQ SCH ×2 (08:55→21:08)
[2016-08-09] MEDS ORDERED: Levemir Flexpen SUBQ SCH (09:00)
--- NOTE | 2016-08-09 11:38 | Consultation ---
DATE OF CONSULTATION: 08/09/2016 ENDOCRINOLOGY CONSULTATION: CONSULTING PHYSICIAN: Raul Garcia M.D. REFERRING PHYSICIAN: Adelaida Kasper M.D. REASON FOR CONSULTATION: Diabetes management. HISTORY OF PRESENT ILLNESS: The patient is a 75-year-old female with a history of insulin-dependent diabetes who presented to the hospital with elevated glucose. The patient was recently in the hospital when she went home on insulin. Glucose was elevated and regular senior care provider called 911. On presentation, the patient was noted to have sodium 127, potassium 4.4, chloride 96, bicarbonate 24, BUN of 23, creatinine of 1.0, glucose of 544, and alkaline phosphatase of 132. Cholesterol of 230 with an LDL of 194, TSH of 1.4. The patient was admitted to the floor. Endocrinology was consulted. PAST MEDICAL HISTORY: 1. Diabetes. 2. Hypertension. 3. Diabetic ketoacidosis. 4. Dyslipidemia. FAMILY HISTORY: Noncontributory. SOCIAL HISTORY: No smoking. No alcohol. No drug use. REVIEW OF SYSTEMS: As per history of present illness. PHYSICAL EXAMINATION: GENERAL: Awake and alert. VITAL SIGNS: Blood pressure is 125/73, pulse of 90, temperature of 97.7 degrees, and respiratory rate of 18. HEENT: Pupils are equal and reactive to light. Sclerae are anicteric. NECK: No JVD. HEART: Regular. LUNGS: Clear. ABDOMEN: Positive bowel sounds. Soft. EXTREMITIES: No clubbing, cyanosis, or edema. DIAGNOSES: 1. Acute exacerbation secondary to noncompliance. 2. Hypertension. PLAN: 1. Levemir 15 units daily. 2. Lovenox 5 units before each meal. 3. Metformin 500 mg t.i.d. 4. NovoLog sliding scale. Thank you Raul Garcia M.D. DR: YAO JOB#: [id number] CC: USAMA
--- NOTE | 2016-08-09 16:33 | Pulmonology Progress Note ---
Assessment/Plan Problems: (1) Hyperglycemia due to type 2 diabetes mellitus (2) Alcohol abuse (3) Hepatitis B Assessment/Plan getting better less anxious sliding scale endo consult appreciated dvt prophylaxis. dc planning for am Subjective ROS Limited/Unobtainable: No Interval Events: doing better Allergies: Coded Allergies: No Known Allergies (Unverified , 10/15/12) Objective Last 24 Hour Vital Signs Date Time Temp Pulse Resp B/P Pulse Ox O2 Delivery O2 Flow Rate FiO2 08/09/16 15:56 97.3 73 20 133/70 98 Room Air 08/09/16 12:00 97.6 69 21 146/77 97 Room Air 08/09/16 08:54 97 125/73 08/09/16 08:15 97.1 97 21 125/73 99 Room Air 08/09/16 07:13 100 18 Room Air 21 08/09/16 04:00 97.7 90 18 125/73 95 Room Air 08/09/16 00:00 98.1 104 18 117/64 98 Room Air 08/08/16 19:00 97.9 94 20 139/77 98 Room Air 08/08/16 17:16 97.7 82 16 148/90 100 Room Air 08/08/16 17:00 97.7 85 20 148/90 100 Room Air 08/08/16 16:47 97.9 85 16 148/79 100 Room Air 08/08/16 16:41 97.9 85 16 148/79 100 Room Air Intake and Output 08/08/16 08/09/16 19:00 07:00 Intake Total 100 ml 1840 ml Output Total 800 ml Balance 100 ml 1040 ml Intake Oral 0 ml 740 ml IV Total 100 ml 1100 ml Output Urine Total 800 ml # Voids 4 # Bowel Movements 1 General Appearance: WD/WN HEENT: normocephalic, atraumatic Respiratory/Chest: chest wall non-tender, lungs clear Breasts: no masses Abdomen: normal bowel sounds, soft, non tender Genitourinary: normal external genitalia Extremities: no clubbing Skin: no rash Laboratory Tests 08/09/16 05:30: White Blood Count 3.6L, Red Blood Count 4.30, Hemoglobin 12.7, Hematocrit 38.0, Mean Corpuscular Volume 88, Mean Corpuscular Hemoglobin 29.5, Mean Corpuscular Hemoglobin Concent 33.3, Red Cell Distribution Width 12.3, Platelet Count 301, Mean Platelet Volume 7.0, Neutrophils (%) (Auto) 34.4L, Lymphocytes (%) (Auto) 52.4H, Monocytes (%) (Auto) 6.9, Eosinophils (%) (Auto) 4.8H, Basophils (%) ( Auto) 1.6, Sodium Level 134L, Potassium Level 4.0, Chloride Level 94L, Carbon Dioxide Level 26, Anion Gap 14, Blood Urea Nitrogen 17, Creatinine 0.9, Estimat Glomerular Filtration Rate , Glucose Level 377#H, Hemoglobin A1c 15.9H, Calcium Level 9.4, Total Bilirubin 0.2, Aspartate Amino Transf (AST/SGOT) 20, Alanine Aminotransferase (ALT/SGPT) 15, Alkaline Phosphatase 97, Total Protein 6.5L, Albumin 3.4L, Globulin 3.1, Albumin/Globulin Ratio 1.0, Triglycerides Level 83, Cholesterol Level 230H, LDL Cholesterol 148H, HDL Cholesterol 65H, Cholesterol/ HDL Ratio 3.5, Thyroid Stimulating Hormone (TSH) 1.420 Current Medications Medications (Trade) Dose Ordered Sig/Juan Route PRN Reason Start Time Stop Time Status Last Admin Dose Admin Acetaminophen (Tylenol) 650 mg Q4H PRN ORAL fever 08/08/16 16:30 09/07/16 16:29 Al Hydroxide/Mg Hydroxide (Mylanta II) 30 ml Q6H PRN ORAL dyspepsia 08/08/16 16:30 09/07/16 16:29 Albuterol/ Ipratropium (DuoNeb 0.5-3(2.5)mg/3ml) 3 ml Q4H PRN HHN Shortness of Breath 08/08/16 16:30 08/13/16 16:29 Aspirin (ASA) 81 mg DAILY NG 08/09/16 09:00 09/08/16 08:59 08/09/16 08:54 Atenolol (Tenormin) 50 mg DAILY ORAL 08/09/16 09:00 09/08/16 08:59 08/09/16 08:54 Atorvastatin Calcium (Lipitor) 40 mg BEDTIME ORAL 08/08/16 21:00 09/07/16 20:59 08/08/16 20:56 Clonidine HCl (Catapres) 0.1 mg Q4H PRN ORAL sbp more than 160 08/08/16 16:30 09/07/16 16:29 Dextrose (Dextrose 50%) STAT PRN IV Hypoglycemia 08/08/16 16:30 09/07/16 16:29 Heparin Sodium (Porcine) (Heparin 5000 units/ml) 5,000 units EVERY 12 HOURS SUBQ 08/08/16 21:00 09/07/16 20:59 08/09/16 08:55 Insulin Aspart (NovoLOG) BEFORE MEALS AND HS SUBQ 08/08/16 16:30 09/07/16 16:29 08/09/16 11:54 Insulin Aspart (NovoLOG) 5 units NOVOTIAC SUBQ 08/09/16 08:30 09/08/16 08:29 08/09/16 11:53 Insulin Detemir (Levemir) 15 units DAILY SUBQ 08/09/16 09:00 09/08/16 08:59 08/09/16 09:10 Metformin HCl 1000 mg 1,000 mg TWICE A DAY ORAL 08/08/16 18:00 09/07/16 17:59 08/09/16 08:54 Mirtazapine (Remeron) 15 mg BEDTIME ORAL 08/08/16 21:00 09/07/16 20:59 08/08/16 20:55 Morphine Sulfate (Morphine Sulfate) 2 mg Q4H PRN IVP severe pain 7-10 08/08/16 16:30 08/15/16 16:29 08/09/16 15:52 Nitroglycerin (Ntg) 0.4 mg Q5M X 3 DOSES PRN SL Prn Chest Pain 08/08/16 16:30 09/07/16 16:29 Ondansetron HCl (Zofran) 4 mg Q6H PRN IVP Nausea & Vomiting 08/08/16 16:30 09/07/16 16:29 Patient Own Medication (Patient's Own Med) 1 ea BID BOTH EYES 08/08/16 22:00 09/07/16 21:59 08/09/16 08:55 Polyethylene Glycol (Miralax) 17 gm HSPRN PRN ORAL Constipation 08/08/16 16:30 09/07/16 16:29 Sodium Chloride (Sodium Chloride 1000ml bag) 1,000 ml @ 100 mls/hr Q10H IVLG 08/08/16 17:00 09/07/16 16:59 08/09/16 13:11 Temazepam (Restoril) 15 mg HSPRN PRN ORAL Insomnia 08/08/16 16:30 08/15/16 16:29 MARY ANN DUEÑAS Aug 09, 2016 16:33
[2016-08-10] VITALS: BP 115/58
[2016-08-10] MEDS: Morphine Sulfate 2mg/ml Inj IVP PRN ×4 (01:02→16:24)
[2016-08-10 04:00] VITALS: BP 124/79
[2016-08-10] MEDS: NovoLOG Insulin Flexpen SUBQ SCH ×7 (06:39→20:35)
--- NOTE | 2016-08-10 06:45 | General Progress Note ---
Assessment/Plan Problem List: (1) HTN (hypertension) ICD Codes: I10 - Essential (primary) hypertension SNOMED: 65494389 (2) DM2 (diabetes mellitus, type 2) ICD Codes: E11.9 - Type 2 diabetes mellitus without complications SNOMED: 80667926, 572956160 (3) Hyperglycemia ICD Codes: R73.9 - Hyperglycemia, unspecified SNOMED: 06472095 Assessment/Plan increase Levemir to 12 units bid increase Novolog to 6 units ac tid + SSI continue Metformin 1000 mg bid Subjective Allergies: Coded Allergies: No Known Allergies (Unverified , 10/15/12) All Systems: reviewed and negative except above Subjective events noted Objective Last 24 Hour Vital Signs Date Time Temp Pulse Resp B/P Pulse Ox O2 Delivery O2 Flow Rate FiO2 08/10/16 06:10 97.5 08/10/16 04:00 97.7 81 18 124/79 98 Room Air 08/10/16 00:00 97.5 74 20 115/58 98 Room Air 08/09/16 19:48 97.8 74 20 131/84 99 Room Air 08/09/16 19:45 76 18 Room Air 08/09/16 19:00 86 20 181/103 100 Nasal Cannula 5.0 08/09/16 19:00 181/103 08/09/16 15:56 97.3 73 20 133/70 98 Room Air 08/09/16 12:00 97.6 69 21 146/77 97 Room Air 08/09/16 08:54 97 125/73 08/09/16 08:15 97.1 97 21 125/73 99 Room Air 08/09/16 07:13 100 18 Room Air 21 Intake and Output 08/09/16 08/10/16 19:00 07:00 Intake Total 1820 ml 810 ml Balance 1820 ml 810 ml Intake Oral 720 ml 710 ml IV Total 1100 ml 100 ml # Voids 3 9 # Bowel Movements 2 1 Height (Feet): 5 Height (Inches): 7.00 Weight (Pounds): 135 General Appearance: no apparent distress Neck: normal alignment Cardiovascular: normal rate Respiratory/Chest: lungs clear Abdomen: normal bowel sounds Objective Item Value Date Time Bedside Blood Glucose 415 mg/dl H 08/10/16 0640 Bedside Blood Glucose 160 mg/dl H 08/09/16 2229 Bedside Blood Glucose 433 mg/dl H 08/09/16 1646 Bedside Blood Glucose 309 mg/dl H 08/09/16 1154 Bedside Blood Glucose 367 mg/dl H 08/09/16 0910 Bedside Blood Glucose 367 mg/dl H 08/09/16 0625 DEBBIE ZULETA 1, 2017 06:45
[2016-08-10 08:15] VITALS: BP 134/64
[2016-08-10] MEDS: Aspirin Baby 81mg NG SCH (08:36)
[2016-08-10] MEDS: metFORMIN 500mg tab ORAL SCH ×2 (08:37→17:09)
[2016-08-10] MEDS: Heparin 5000 units/ml inj SUBQ SCH ×2 (08:37→20:32)
[2016-08-10] MEDS: Levemir Flexpen SUBQ SCH ×2 (09:25→20:35)
[2016-08-10 12:15] VITALS: BP 119/74
--- NOTE | 2016-08-10 15:21 | Pulmonology Progress Note ---
Assessment/Plan Problems: (1) Hyperglycemia due to type 2 diabetes mellitus (2) Alcohol abuse (3) Hepatitis B Assessment/Plan getting better less anxious sliding scale endo consult appreciated dvt prophylaxis. dc planning for am Subjective ROS Limited/Unobtainable: No Constitutional: Reports: anorexia, fatigue Skin: Reports: rash, ulcer Allergies: Coded Allergies: No Known Allergies (Unverified , 10/15/12) Objective Last 24 Hour Vital Signs Date Time Temp Pulse Resp B/P Pulse Ox O2 Delivery O2 Flow Rate FiO2 08/10/16 12:15 97.9 75 18 119/74 98 Room Air 08/10/16 08:36 87 134/64 08/10/16 08:15 97.7 87 20 134/64 97 Room Air 08/10/16 07:01 72 16 Room Air 08/10/16 06:10 97.5 08/10/16 04:00 97.7 81 18 124/79 98 Room Air 08/10/16 00:00 97.5 74 20 115/58 98 Room Air 08/09/16 19:48 97.8 74 20 131/84 99 Room Air 08/09/16 19:45 76 18 Room Air 08/09/16 19:00 86 20 181/103 100 Nasal Cannula 5.0 08/09/16 19:00 181/103 08/09/16 15:56 97.3 73 20 133/70 98 Room Air Intake and Output 08/09/16 08/10/16 19:00 07:00 Intake Total 1820 ml 810 ml Balance 1820 ml 810 ml Intake Oral 720 ml 710 ml IV Total 1100 ml 100 ml # Voids 3 9 # Bowel Movements 3 1 General Appearance: no acute distress HEENT: normocephalic, atraumatic, PERRL Respiratory/Chest: chest wall non-tender, decreased breath sounds, accessory muscle use Breasts: no masses Cardiovascular: normal peripheral pulses, normal rate, regular rhythm Abdomen: normal bowel sounds, soft, non tender, no organomegaly Genitourinary: normal external genitalia Extremities: no cyanosis Skin: rash, lesions Neurologic/Psychiatric: 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 Complete Current Medications Medications (Trade) Dose Ordered Sig/Juan Route PRN Reason Start Time Stop Time Status Last Admin Dose Admin Acetaminophen (Tylenol) 650 mg Q4H PRN ORAL fever 08/08/16 16:30 09/07/16 16:29 Al Hydroxide/Mg Hydroxide (Mylanta II) 30 ml Q6H PRN ORAL dyspepsia 08/08/16 16:30 09/07/16 16:29 Albuterol/ Ipratropium (DuoNeb 0.5-3(2.5)mg/3ml) 3 ml Q4H PRN HHN Shortness of Breath 08/08/16 16:30 08/13/16 16:29 Aspirin (ASA) 81 mg DAILY NG 08/09/16 09:00 09/08/16 08:59 08/10/16 08:36 Atenolol (Tenormin) 50 mg DAILY ORAL 08/09/16 09:00 09/08/16 08:59 08/10/16 08:36 Atorvastatin Calcium (Lipitor) 40 mg BEDTIME ORAL 08/08/16 21:00 09/07/16 20:59 08/09/16 20:59 Clonidine HCl (Catapres) 0.1 mg Q4H PRN ORAL sbp more than 160 08/08/16 16:30 09/07/16 16:29 08/09/16 19:00 Dextrose (Dextrose 50%) STAT PRN IV Hypoglycemia 08/08/16 16:30 09/07/16 16:29 Heparin Sodium (Porcine) (Heparin 5000 units/ml) 5,000 units EVERY 12 HOURS SUBQ 08/08/16 21:00 09/07/16 20:59 08/10/16 08:37 Insulin Aspart (NovoLOG) BEFORE MEALS AND HS SUBQ 08/08/16 16:30 09/07/16 16:29 08/10/16 06:39 Insulin Aspart (NovoLOG) 6 units NOVOTIAC SUBQ 08/10/16 11:50 09/09/16 11:49 Insulin Detemir (Levemir) 12 units Q12HR SUBQ 08/10/16 09:00 09/09/16 08:59 08/10/16 09:25 Metformin HCl 1000 mg 1,000 mg TWICE A DAY ORAL 08/08/16 18:00 09/07/16 17:59 08/10/16 08:37 Mirtazapine (Remeron) 15 mg BEDTIME ORAL 08/08/16 21:00 09/07/16 20:59 08/09/16 20:59 Morphine Sulfate (Morphine Sulfate) 2 mg Q4H PRN IVP severe pain 7-10 08/08/16 16:30 08/15/16 16:29 08/10/16 11:33 Nitroglycerin (Ntg) 0.4 mg Q5M X 3 DOSES PRN SL Prn Chest Pain 08/08/16 16:30 09/07/16 16:29 Ondansetron HCl (Zofran) 4 mg Q6H PRN IVP Nausea & Vomiting 08/08/16 16:30 09/07/16 16:29 Patient Own Medication (Patient's Own Med) 1 ea BID BOTH EYES 08/08/16 22:00 09/07/16 21:59 08/10/16 08:20 Polyethylene Glycol (Miralax) 17 gm HSPRN PRN ORAL Constipation 08/08/16 16:30 09/07/16 16:29 Sodium Chloride (Sodium Chloride 1000ml bag) 1,000 ml @ 100 mls/hr Q10H IVLG 08/08/16 17:00 09/07/16 16:59 08/10/16 08:50 Temazepam (Restoril) 15 mg HSPRN PRN ORAL Insomnia 08/08/16 16:30 08/15/16 16:29 MARY ANN DUEÑAS Aug 10, 2016 15:21
[2016-08-10 16:00] VITALS: BP 132/74
[2016-08-10 20:00] VITALS: BP 124/67
--- NOTE | 2016-08-10 23:34 | Cardiology Report ---
APPROVED REPORT EKG Measurement Heart [id number] ID [id number] Normal sinus rhythm Normal ECG
[2016-08-11] VITALS: BP 135/86
[2016-08-11] MEDS: Morphine Sulfate 2mg/ml Inj IVP PRN ×4 (02:28→19:46)
[2016-08-11 04:00] VITALS: BP 136/71
[2016-08-11] MEDS: NovoLOG Insulin Flexpen SUBQ SCH ×7 (05:59→20:34)
--- NOTE | 2016-08-11 06:56 | General Progress Note ---
Assessment/Plan Problem List: (1) HTN (hypertension) ICD Codes: I10 - Essential (primary) hypertension SNOMED: 40762171 (2) DM2 (diabetes mellitus, type 2) ICD Codes: E11.9 - Type 2 diabetes mellitus without complications SNOMED: 77184548, 007992480 (3) Hyperglycemia ICD Codes: R73.9 - Hyperglycemia, unspecified SNOMED: 48435996 Assessment/Plan glycemic control improved continue Levemir 12 units bid continue Novolog to 6 units ac tid + SSI continue Metformin 1000 mg bid Subjective Allergies: Coded Allergies: No Known Allergies (Unverified , 10/15/12) All Systems: reviewed and negative except above Subjective events noted Objective Last 24 Hour Vital Signs Date Time Temp Pulse Resp B/P Pulse Ox O2 Delivery O2 Flow Rate FiO2 08/11/16 04:00 97.7 76 18 136/71 98 Room Air 08/11/16 00:00 98.1 86 18 135/86 99 Room Air 08/10/16 20:00 98.2 77 19 124/67 99 Room Air 08/10/16 19:30 78 20 Room Air 21 08/10/16 16:00 98.1 73 18 132/74 99 Room Air 08/10/16 12:15 97.9 75 18 119/74 98 Room Air 08/10/16 08:36 87 134/64 08/10/16 08:15 97.7 87 20 134/64 97 Room Air 08/10/16 07:01 72 16 Room Air Intake and Output 08/10/16 08/11/16 19:00 07:00 Intake Total 880 ml 1700 ml Balance 880 ml 1700 ml Intake Oral 480 ml 600 ml IV Total 400 ml 1100 ml # Voids 7 Height (Feet): 5 Height (Inches): 7.00 Weight (Pounds): 135 General Appearance: no apparent distress Neck: normal alignment Cardiovascular: regular rhythm Respiratory/Chest: lungs clear Abdomen: normal bowel sounds Objective Current Medications Medications (Trade) Dose Ordered Sig/Juan Route PRN Reason Start Time Stop Time Status Last Admin Dose Admin Acetaminophen (Tylenol) 650 mg Q4H PRN ORAL fever 08/08/16 16:30 09/07/16 16:29 Al Hydroxide/Mg Hydroxide (Mylanta II) 30 ml Q6H PRN ORAL dyspepsia 08/08/16 16:30 09/07/16 16:29 Albuterol/ Ipratropium (DuoNeb 0.5-3(2.5)mg/3ml) 3 ml Q4H PRN HHN Shortness of Breath 08/08/16 16:30 08/13/16 16:29 Aspirin (ASA) 81 mg DAILY NG 08/09/16 09:00 09/08/16 08:59 08/10/16 08:36 Atenolol (Tenormin) 50 mg DAILY ORAL 08/09/16 09:00 09/08/16 08:59 08/10/16 08:36 Atorvastatin Calcium (Lipitor) 40 mg BEDTIME ORAL 08/08/16 21:00 09/07/16 20:59 08/10/16 20:31 Clonidine HCl (Catapres) 0.1 mg Q4H PRN ORAL sbp more than 160 08/08/16 16:30 09/07/16 16:29 08/09/16 19:00 Dextrose (Dextrose 50%) STAT PRN IV Hypoglycemia 08/08/16 16:30 09/07/16 16:29 Heparin Sodium (Porcine) (Heparin 5000 units/ml) 5,000 units EVERY 12 HOURS SUBQ 08/08/16 21:00 09/07/16 20:59 08/10/16 20:32 Insulin Aspart (NovoLOG) BEFORE MEALS AND HS SUBQ 08/08/16 16:30 09/07/16 16:29 08/11/16 05:59 Insulin Aspart (NovoLOG) 6 units NOVOTIAC SUBQ 08/10/16 11:50 09/09/16 11:49 08/11/16 06:00 Insulin Detemir (Levemir) 12 units Q12HR SUBQ 08/10/16 09:00 09/09/16 08:59 08/10/16 20:35 Metformin HCl 1000 mg 1,000 mg TWICE A DAY ORAL 08/08/16 18:00 09/07/16 17:59 08/10/16 17:09 Mirtazapine (Remeron) 15 mg BEDTIME ORAL 08/08/16 21:00 09/07/16 20:59 08/10/16 20:31 Morphine Sulfate (Morphine Sulfate) 2 mg Q4H PRN IVP severe pain 7-10 08/08/16 16:30 08/15/16 16:29 08/11/16 02:28 Nitroglycerin (Ntg) 0.4 mg Q5M X 3 DOSES PRN SL Prn Chest Pain 08/08/16 16:30 09/07/16 16:29 Ondansetron HCl (Zofran) 4 mg Q6H PRN IVP Nausea & Vomiting 08/08/16 16:30 09/07/16 16:29 Patient Own Medication (Patient's Own Med) 1 ea BID BOTH EYES 08/08/16 22:00 09/07/16 21:59 08/10/16 17:10 Polyethylene Glycol (Miralax) 17 gm HSPRN PRN ORAL Constipation 08/08/16 16:30 09/07/16 16:29 Sodium Chloride (Sodium Chloride 1000ml bag) 1,000 ml @ 100 mls/hr Q10H IVLG 08/08/16 17:00 09/07/16 16:59 08/11/16 04:24 Temazepam (Restoril) 15 mg HSPRN PRN ORAL Insomnia 08/08/16 16:30 08/15/16 16:29 Item Value Date Time Bedside Blood Glucose 220 mg/dl H 08/11/16 0617 Bedside Blood Glucose 82 mg/dl 08/10/16 2035 Bedside Blood Glucose 352 mg/dl H 08/10/16 1710 Bedside Blood Glucose 94 mg/dl 08/10/16 1150 Bedside Blood Glucose 176 mg/dl H 08/10/16 0925 Bedside Blood Glucose 415 mg/dl H 08/10/16 0640 DEBBIE ZULETA 2, 2017 06:56
[2016-08-11 08:11] VITALS: BP 146/74
[2016-08-11] MEDS: Aspirin Baby 81mg NG SCH (08:33)
[2016-08-11] MEDS: metFORMIN 500mg tab ORAL SCH ×2 (08:33→17:22)
[2016-08-11] MEDS: Levemir Flexpen SUBQ SCH ×2 (08:35→20:34)
[2016-08-11] MEDS: Heparin 5000 units/ml inj SUBQ SCH ×2 (08:36→20:33)
[2016-08-11 12:15] VITALS: BP 145/81
[2016-08-11 16:00] VITALS: BP 145/76
[2016-08-11] MEDS: Lacri-Lube Opth Oint 3.5gm BOTH EYES SCH (17:23)
[2016-08-11] MEDS ORDERED: ALPRAZolam 0.5mg tab ORAL PRN (18:30)
[2016-08-11 19:00] VITALS: BP 153/81
--- NOTE | 2016-08-11 22:18 | Pulmonology Progress Note ---
Assessment/Plan Problems: (1) Hyperglycemia due to type 2 diabetes mellitus (2) Alcohol abuse (3) Hepatitis B Assessment/Plan getting better less anxious sliding scale endo consult appreciated dvt prophylaxis. dc planning for am Subjective ROS Limited/Unobtainable: No Constitutional: Reports: anorexia, fatigue Skin: Reports: rash, ulcer Allergies: Coded Allergies: No Known Allergies (Unverified , 10/15/12) Objective Last 24 Hour Vital Signs Date Time Temp Pulse Resp B/P Pulse Ox O2 Delivery O2 Flow Rate FiO2 08/11/16 19:49 81 18 Room Air 21 08/11/16 19:00 96.8 87 20 153/81 99 Room Air 08/11/16 16:00 97.2 91 20 145/76 97 Room Air 08/11/16 12:15 97.6 71 20 145/81 95 Room Air 08/11/16 09:04 98.2 08/11/16 08:35 75 20 Room Air 21 08/11/16 08:33 83 146/74 08/11/16 08:11 98.2 83 21 146/74 97 Room Air 08/11/16 04:00 97.7 76 18 136/71 98 Room Air 08/11/16 00:00 98.1 86 18 135/86 99 Room Air Intake and Output 08/10/16 08/11/16 19:00 07:00 Intake Total 880 ml 1800 ml Balance 880 ml 1800 ml Intake Oral 480 ml 600 ml IV Total 400 ml 1200 ml # Voids 7 General Appearance: no acute distress HEENT: normocephalic, atraumatic, PERRL Respiratory/Chest: chest wall non-tender, decreased breath sounds, accessory muscle use Cardiovascular: normal peripheral pulses, normal rate, regular rhythm Abdomen: normal bowel sounds, soft, non tender, no organomegaly, non distended Genitourinary: normal external genitalia Extremities: no cyanosis Skin: rash, lesions 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, no motor/sensory deficits Current Medications Medications (Trade) Dose Ordered Sig/Juan Route PRN Reason Start Time Stop Time Status Last Admin Dose Admin Acetaminophen (Tylenol) 650 mg Q4H PRN ORAL fever 08/08/16 16:30 09/07/16 16:29 Al Hydroxide/Mg Hydroxide (Mylanta II) 30 ml Q6H PRN ORAL dyspepsia 08/08/16 16:30 09/07/16 16:29 Albuterol/ Ipratropium (DuoNeb 0.5-3(2.5)mg/3ml) 3 ml Q4H PRN HHN Shortness of Breath 08/08/16 16:30 08/13/16 16:29 Alprazolam (Xanax) 1 mg Q6H PRN ORAL For Anxiety 08/11/16 18:30 08/18/16 18:29 Artificial Tears (Lacri-Lube) 1 applic THREE TIMES A DAY BOTH EYES 08/11/16 18:00 09/10/16 17:59 08/11/16 17:23 Aspirin (ASA) 81 mg DAILY NG 08/09/16 09:00 09/08/16 08:59 08/11/16 08:33 Atenolol (Tenormin) 50 mg DAILY ORAL 08/09/16 09:00 09/08/16 08:59 08/11/16 08:33 Atorvastatin Calcium (Lipitor) 40 mg BEDTIME ORAL 08/08/16 21:00 09/07/16 20:59 08/11/16 20:34 Clonidine HCl (Catapres) 0.1 mg Q4H PRN ORAL sbp more than 160 08/08/16 16:30 09/07/16 16:29 08/09/16 19:00 Dextrose (Dextrose 50%) STAT PRN IV Hypoglycemia 08/08/16 16:30 09/07/16 16:29 08/11/16 14:19 Heparin Sodium (Porcine) (Heparin 5000 units/ml) 5,000 units EVERY 12 HOURS SUBQ 08/08/16 21:00 09/07/16 20:59 08/11/16 20:33 Insulin Aspart (NovoLOG) BEFORE MEALS AND HS SUBQ 08/08/16 16:30 09/07/16 16:29 08/11/16 17:23 Insulin Aspart (NovoLOG) 6 units NOVOTIAC SUBQ 08/10/16 11:50 09/09/16 11:49 08/11/16 17:23 Insulin Detemir (Levemir) 12 units Q12HR SUBQ 08/10/16 09:00 09/09/16 08:59 08/11/16 20:34 Metformin HCl 1000 mg 1,000 mg TWICE A DAY ORAL 08/08/16 18:00 09/07/16 17:59 08/11/16 17:22 Mirtazapine (Remeron) 15 mg BEDTIME ORAL 08/08/16 21:00 09/07/16 20:59 08/11/16 20:34 Morphine Sulfate (Morphine Sulfate) 2 mg Q4H PRN IVP severe pain 7-10 08/08/16 16:30 08/15/16 16:29 08/11/16 19:46 Nitroglycerin (Ntg) 0.4 mg Q5M X 3 DOSES PRN SL Prn Chest Pain 08/08/16 16:30 09/07/16 16:29 Ondansetron HCl (Zofran) 4 mg Q6H PRN IVP Nausea & Vomiting 08/08/16 16:30 09/07/16 16:29 Patient Own Medication (Patient's Own Med) 1 ea BID BOTH EYES 08/08/16 22:00 09/07/16 21:59 08/11/16 17:32 Polyethylene Glycol (Miralax) 17 gm HSPRN PRN ORAL Constipation 08/08/16 16:30 09/07/16 16:29 Sodium Chloride (Sodium Chloride 1000ml bag) 1,000 ml @ 100 mls/hr Q10H IVLG 08/08/16 17:00 09/07/16 16:59 08/11/16 04:24 Temazepam (Restoril) 15 mg HSPRN PRN ORAL Insomnia 08/08/16 16:30 08/15/16 16:29 MARY ANN DUEÑAS Aug 11, 2016 22:18
[2016-08-12] VITALS: BP 138/73
[2016-08-12] MEDS: Morphine Sulfate 2mg/ml Inj IVP PRN ×4 (00:39→16:17)
[2016-08-12 04:00] VITALS: BP 138/64
--- NOTE | 2016-08-12 06:13 | General Progress Note ---
Assessment/Plan Problem List: (1) HTN (hypertension) ICD Codes: I10 - Essential (primary) hypertension SNOMED: 27166286 (2) DM2 (diabetes mellitus, type 2) ICD Codes: E11.9 - Type 2 diabetes mellitus without complications SNOMED: 66205187, [id number] (3) Hyperglycemia ICD Codes: R73.9 - Hyperglycemia, unspecified SNOMED: 31674621 Assessment/Plan glycemic control improved reduce Levemir to 8 units bid reduce Novolog to 5 units ac tid + SSI continue Metformin 1000 mg bid Subjective Allergies: Coded Allergies: No Known Allergies (Unverified , 10/15/12) All Systems: reviewed and negative except above Subjective she is resting - events noted Objective Last 24 Hour Vital Signs Date Time Temp Pulse Resp B/P Pulse Ox O2 Delivery O2 Flow Rate FiO2 08/12/16 04:00 97.0 83 20 138/64 99 Room Air 08/12/16 01:09 96.8 08/12/16 00:00 98.1 87 18 138/73 97 Room Air 08/11/16 19:49 81 18 Room Air 21 08/11/16 19:00 96.8 87 20 153/81 99 Room Air 08/11/16 16:00 97.2 91 20 145/76 97 Room Air 08/11/16 12:15 97.6 71 20 145/81 95 Room Air 08/11/16 08:35 75 20 Room Air 21 08/11/16 08:33 83 146/74 08/11/16 08:11 98.2 83 21 146/74 97 Room Air Intake and Output 08/11/16 08/12/16 19:00 07:00 Intake Total 1980 ml 240 ml Balance 1980 ml 240 ml Intake Oral 1680 ml 240 ml IV Total 300 ml # Voids 3 4 # Bowel Movements 2 Height (Feet): 5 Height (Inches): 7.00 Weight (Pounds): 135 General Appearance: no apparent distress Neck: normal alignment Cardiovascular: normal rate Respiratory/Chest: lungs clear Abdomen: normal bowel sounds Objective Current Medications Medications (Trade) Dose Ordered Sig/Juan Route PRN Reason Start Time Stop Time Status Last Admin Dose Admin Acetaminophen (Tylenol) 650 mg Q4H PRN ORAL fever 08/08/16 16:30 09/07/16 16:29 Al Hydroxide/Mg Hydroxide (Mylanta II) 30 ml Q6H PRN ORAL dyspepsia 08/08/16 16:30 09/07/16 16:29 Albuterol/ Ipratropium (DuoNeb 0.5-3(2.5)mg/3ml) 3 ml Q4H PRN HHN Shortness of Breath 08/08/16 16:30 08/13/16 16:29 Alprazolam (Xanax) 1 mg Q6H PRN ORAL For Anxiety 08/11/16 18:30 08/18/16 18:29 Artificial Tears (Lacri-Lube) 1 applic THREE TIMES A DAY BOTH EYES 08/11/16 18:00 09/10/16 17:59 08/11/16 17:23 Aspirin (ASA) 81 mg DAILY NG 08/09/16 09:00 09/08/16 08:59 08/11/16 08:33 Atenolol (Tenormin) 50 mg DAILY ORAL 08/09/16 09:00 09/08/16 08:59 08/11/16 08:33 Atorvastatin Calcium (Lipitor) 40 mg BEDTIME ORAL 08/08/16 21:00 09/07/16 20:59 08/11/16 20:34 Clonidine HCl (Catapres) 0.1 mg Q4H PRN ORAL sbp more than 160 08/08/16 16:30 09/07/16 16:29 08/09/16 19:00 Dextrose (Dextrose 50%) STAT PRN IV Hypoglycemia 08/08/16 16:30 09/07/16 16:29 08/11/16 14:19 Heparin Sodium (Porcine) (Heparin 5000 units/ml) 5,000 units EVERY 12 HOURS SUBQ 08/08/16 21:00 09/07/16 20:59 08/11/16 20:33 Insulin Aspart (NovoLOG) BEFORE MEALS AND HS SUBQ 08/08/16 16:30 09/07/16 16:29 08/11/16 17:23 Insulin Aspart (NovoLOG) 6 units NOVOTIAC SUBQ 08/10/16 11:50 09/09/16 11:49 08/11/16 17:23 Insulin Detemir (Levemir) 12 units Q12HR SUBQ 08/10/16 09:00 09/09/16 08:59 08/11/16 20:34 Metformin HCl 1000 mg 1,000 mg TWICE A DAY ORAL 08/08/16 18:00 09/07/16 17:59 08/11/16 17:22 Mirtazapine (Remeron) 15 mg BEDTIME ORAL 08/08/16 21:00 09/07/16 20:59 08/11/16 20:34 Morphine Sulfate (Morphine Sulfate) 2 mg Q4H PRN IVP severe pain 7-10 08/08/16 16:30 08/15/16 16:29 08/12/16 05:13 Nitroglycerin (Ntg) 0.4 mg Q5M X 3 DOSES PRN SL Prn Chest Pain 08/08/16 16:30 09/07/16 16:29 Ondansetron HCl (Zofran) 4 mg Q6H PRN IVP Nausea & Vomiting 08/08/16 16:30 09/07/16 16:29 Patient Own Medication (Patient's Own Med) 1 ea BID BOTH EYES 08/08/16 22:00 09/07/16 21:59 08/11/16 17:32 Polyethylene Glycol (Miralax) 17 gm HSPRN PRN ORAL Constipation 08/08/16 16:30 09/07/16 16:29 Sodium Chloride (Sodium Chloride 1000ml bag) 1,000 ml @ 100 mls/hr Q10H IVLG 08/08/16 17:00 09/07/16 16:59 08/12/16 00:38 Temazepam (Restoril) 15 mg HSPRN PRN ORAL Insomnia 08/08/16 16:30 08/15/16 16:29 Item Value Date Time Bedside Blood Glucose 75 mg/dl 08/11/16 2034 Bedside Blood Glucose 211 mg/dl H 08/11/16 1723 Bedside Blood Glucose 125 mg/dl H 08/11/16 1434 Bedside Blood Glucose 220 mg/dl H 08/11/16 0835 Bedside Blood Glucose 220 mg/dl H 08/11/16 0617 DEBBIE ZULETA 3, 2017 06:13
[2016-08-12] MEDS: NovoLOG Insulin Flexpen SUBQ SCH ×6 (06:24→17:17)
--- NOTE | 2016-08-12 07:24 | Pulmonology Progress Note ---
Assessment/Plan Assessment/Plan ASSESSMENT hyperglycemia 2 to diabetes( likely noncompliance) DM ETOH abuse Hepatitis B hyperlipidemia HTN noncompliance PLAN OF CARE [facility] floor IVF BS management with short acting premeal insulin and Levemir, NovoLog SS prn endo follows HgA1c -15.9 further BS optimization as outpt lipid panel with elevated LDL and TC statin TSH WNL UA negative acetone was negative PT/OT general counselor on abstinence from ETOH , refer to AA add Thiamine , Folic acid and MVI dc to SNF today when placement secured case discussed and evaluated by supervising physician Subjective Allergies: Coded Allergies: No Known Allergies (Unverified , 10/15/12) Subjective BS low this am seen by endo earlier dose of Levemir and Novolog premeal decreased pending dc to SNF Objective Last 24 Hour Vital Signs Date Time Temp Pulse Resp B/P Pulse Ox O2 Delivery O2 Flow Rate FiO2 08/12/16 04:00 97.0 83 20 138/64 99 Room Air 08/12/16 01:09 96.8 08/12/16 00:00 98.1 87 18 138/73 97 Room Air 08/11/16 19:49 81 18 Room Air 21 08/11/16 19:00 96.8 87 20 153/81 99 Room Air 08/11/16 16:00 97.2 91 20 145/76 97 Room Air 08/11/16 12:15 97.6 71 20 145/81 95 Room Air 08/11/16 08:35 75 20 Room Air 21 08/11/16 08:33 83 146/74 08/11/16 08:11 98.2 83 21 146/74 97 Room Air Intake and Output 08/11/16 08/12/16 19:00 07:00 Intake Total 1980 ml 240 ml Balance 1980 ml 240 ml Intake Oral 1680 ml 240 ml IV Total 300 ml # Voids 3 4 # Bowel Movements 2 General Appearance: WD/WN, no acute distress, other - A.A/O x 3 thin AA female in NAD HEENT: normocephalic, atraumatic, anicteric, mucous membranes moist, PERRL Respiratory/Chest: chest wall non-tender, lungs clear Cardiovascular: normal peripheral pulses, normal rate, regular rhythm, no JVD Abdomen: normal bowel sounds, soft, non tender, non distended Genitourinary: normal external genitalia Extremities: no edema, pedal pulses normal Neurologic/Psychiatric: no motor/sensory deficits, alert, oriented x 3, responsive, normal mood/affect Musculoskeletal: normal muscle bulk Current Medications Medications (Trade) Dose Ordered Sig/Juan Route PRN Reason Start Time Stop Time Status Last Admin Dose Admin Acetaminophen (Tylenol) 650 mg Q4H PRN ORAL fever 08/08/16 16:30 09/07/16 16:29 Al Hydroxide/Mg Hydroxide (Mylanta II) 30 ml Q6H PRN ORAL dyspepsia 08/08/16 16:30 09/07/16 16:29 Albuterol/ Ipratropium (DuoNeb 0.5-3(2.5)mg/3ml) 3 ml Q4H PRN HHN Shortness of Breath 08/08/16 16:30 08/13/16 16:29 Alprazolam (Xanax) 1 mg Q6H PRN ORAL For Anxiety 08/11/16 18:30 08/18/16 18:29 08/12/16 06:22 Artificial Tears (Lacri-Lube) 1 applic THREE TIMES A DAY BOTH EYES 08/11/16 18:00 09/10/16 17:59 08/11/16 17:23 Aspirin (ASA) 81 mg DAILY NG 08/09/16 09:00 09/08/16 08:59 08/11/16 08:33 Atenolol (Tenormin) 50 mg DAILY ORAL 08/09/16 09:00 09/08/16 08:59 08/11/16 08:33 Atorvastatin Calcium (Lipitor) 40 mg BEDTIME ORAL 08/08/16 21:00 09/07/16 20:59 08/11/16 20:34 Clonidine HCl (Catapres) 0.1 mg Q4H PRN ORAL sbp more than 160 08/08/16 16:30 09/07/16 16:29 08/09/16 19:00 Dextrose (Dextrose 50%) STAT PRN IV Hypoglycemia 08/08/16 16:30 09/07/16 16:29 08/11/16 14:19 Heparin Sodium (Porcine) (Heparin 5000 units/ml) 5,000 units EVERY 12 HOURS SUBQ 08/08/16 21:00 09/07/16 20:59 08/11/16 20:33 Insulin Aspart (NovoLOG) BEFORE MEALS AND HS SUBQ 08/08/16 16:30 09/07/16 16:29 08/12/16 06:24 Insulin Aspart (NovoLOG) 5 units NOVOTIAC SUBQ 08/12/16 06:30 09/11/16 06:29 08/12/16 07:06 Insulin Detemir (Levemir) 8 units Q12HR SUBQ 08/12/16 09:00 09/11/16 08:59 Metformin HCl 1000 mg 1,000 mg TWICE A DAY ORAL 08/08/16 18:00 09/07/16 17:59 08/11/16 17:22 Mirtazapine (Remeron) 15 mg BEDTIME ORAL 08/08/16 21:00 09/07/16 20:59 08/11/16 20:34 Morphine Sulfate (Morphine Sulfate) 2 mg Q4H PRN IVP severe pain 7-10 08/08/16 16:30 08/15/16 16:29 08/12/16 05:13 Nitroglycerin (Ntg) 0.4 mg Q5M X 3 DOSES PRN SL Prn Chest Pain 08/08/16 16:30 09/07/16 16:29 Ondansetron HCl (Zofran) 4 mg Q6H PRN IVP Nausea & Vomiting 08/08/16 16:30 09/07/16 16:29 Patient Own Medication (Patient's Own Med) 1 ea BID BOTH EYES 08/08/16 22:00 09/07/16 21:59 08/11/16 17:32 Polyethylene Glycol (Miralax) 17 gm HSPRN PRN ORAL Constipation 08/08/16 16:30 09/07/16 16:29 Sodium Chloride (Sodium Chloride 1000ml bag) 1,000 ml @ 100 mls/hr Q10H IVLG 08/08/16 17:00 09/07/16 16:59 08/12/16 00:38 Temazepam (Restoril) 15 mg HSPRN PRN ORAL Insomnia 08/08/16 16:30 08/15/16 16:29 Susan Olivarez NP ([facility]) Aug 12, 2016 07:24
[2016-08-12] MEDS ORDERED: LEVEMIR FL100 UNIT/1 SUBQ (07:29)
[2016-08-12] MEDS ORDERED: NOVOLOG100 UNITS1 SUBQ ×2 (07:29)
--- NOTE | 2016-08-12 07:29 | Discharge Instructions ---
Discharge Instructions Discharge Instructions Follow up with: MD at the facility Diet: diabetic calorie control Activity: as tolerated For Congestive Heart Failure Reminder Report to your physician any weight gain of 5 pounds or more in one week. [facility] NP Aug 12, 2016 07:29
[2016-08-12 07:40] VITALS: BP 127/95
[2016-08-12] MEDS ORDERED: Levemir Flexpen SUBQ SCH (09:00)
[2016-08-12] MEDS ORDERED: Thiamine 100mg tab ORAL SCH (09:00)
[2016-08-12] MEDS: metFORMIN 500mg tab ORAL SCH ×2 (09:14→17:15)
[2016-08-12] MEDS: Lacri-Lube Opth Oint 3.5gm BOTH EYES SCH ×3 (09:14→17:16)
[2016-08-12] MEDS: Aspirin Baby 81mg NG SCH (09:14)
[2016-08-12] MEDS: Heparin 5000 units/ml inj SUBQ SCH (09:16)
[2016-08-12] MEDS ORDERED: FOLIC ACID1 MG ORAL (10:32)
[2016-08-12] MEDS ORDERED: MULTIVITAMINS1 EAC2 ORAL (10:32)
[2016-08-12] MEDS ORDERED: THIAMINE HCL100 MG ORAL (10:32)
[2016-08-12 11:53] VITALS: BP 146/84
[2016-08-12 16:00] VITALS: BP 146/84
--- NOTE | 2016-08-15 10:13 | Discharge Summary ---
Discharge Summary Hospital Course Date of Admission Aug 08, 2016 at 14:45 Date of Discharge Aug 12, 2016 at 20:30 Admitting Diagnosis HYPERTENSIVE URGENCY,HYPERGLYCEMIA HPI Sharath Alvarenga is a 75 year old female who was admitted on Aug 08, 2016 at 14: 45 for Hypertensive Urgency,Hyperglycemia Hospital Course dc summary # [id number] Discharge Medications New Medications: Folic Acid* (Folic Acid*) 1 Mg Tablet 1 MG ORAL DAILY, #30 TAB Insulin Aspart (Novolog Flexpen) 100 Unit/1 Ml Insuln.pen 5 UNITS SUBQ NOVOTIAC, #1 EA Insulin Aspart (Novolog Flexpen) 100 Unit/1 Ml Insuln.pen 0 UNITS SUBQ BEFORE MEALS AND HS, #1 EA Insulin Detemir (Levemir Flexpen) 100 Unit/1 Ml Insuln.pen 8 UNITS SUBQ Q12HR, #1 EA Multivitamins* (Multivitamins*) 1 Each Tablet 1 TAB ORAL DAILY, #30 TAB Thiamine Hcl (Vitamin B1*) 100 Mg Tablet 100 MG ORAL DAILY for 30 Days, TAB Continued Medications: Aspirin* (Aspirin*) 81 Mg Tab.chew 81 MG NG DAILY for 30 Days, TAB Atenolol* (Tenormin*) 50 Mg Tablet 50 MG ORAL DAILY Atorvastatin Calcium* (Lipitor*) 10 Mg Tablet 40 MG ORAL BEDTIME, #30 TAB Cyclosporine (Restasis) 1 Each Droperette 1 DROP BOTH EYES EVERY 12 HOURS, #1 EA 0 Refills Dorzolamide Hcl/Timolol Maleat (Cosopt Eye Drops) 10 Ml Drops 10 ML OP BID Metformin Hcl* (Metformin Hcl*) 500 Mg Tablet 1000 MG ORAL TWICE A DAY, #120 TAB Mirtazapine (Mirtazapine) 15 Mg Tab.rapdis 15 MG ORAL BEDTIME, TAB Discharge Condition Upon Discharge: stable Discharge Disposition Patient was discharged to SNF/Subacute Facility(03) Discharge Diagnoses: Discharge Instructions Discharge Instructions Follow up with: MD at the facility Activity: as tolerated Susan Olivarez NP ([facility]) Aug 15, 2016 10:13
--- NOTE | 2016-08-16 02:38 | Discharge Summary 2 SIG ---
DATE OF ADMISSION: 08/08/2016 DATE OF DISCHARGE: 08/12/2016 REASON FOR ADMISSION: 75-year-old female presented to emergency department for evaluation. She stated that her blood sugar was critically high. Per beauty counselor, the patient was unable to get insulin, since her blood sugar was too high , and she did not know the amount that should be administered. . The patient denied dizziness or weakness. Denied chest pain, shortness of breath, fever, or chills. Workup in the emergency room revealed blood sugar of 544. Acetone level was negative. Blood pressure was elevated of 198/110. Sodium was 127. There was no evidence of acidosis. The patient was covered with the insulin in ED, started IV fluids, and admitted to the hospital for further management. ADMITTING DIAGNOSES: 1. Hyperglycemia. 2. Diabetes, out of control. 3. Acute hyponatremia. 4. Hypertensive urgency. HOSPITAL STAY: The patient was admitted to the hospital. Endocrinology consult was requested. The patient was hydrated with IV fluids. Blood sugar was managed with short-acting premeal insulin and long acting Levemir as well as NovoLog sliding scale as needed. Blood sugar remains stable with current regimen. However, hemoglobin A1c -15.9-completely out of control. Lipid panel revealed elevated LDL and total cholesterol. The patient started on statin. Blood pressure stable with current regimen. Na up to 134, hyponatremia was likely due to depletion, resolved with IV hydration. TSH was within normal limits. Urinalysis was negative for any evidence of urinary tract infection. The patient with a history of alcohol abuse. The patient was counseled on abstinence from the alcohol and referred to Alcoholics Anonymous. Added thiamine, folic acid, and multivitamin to existing regimen. The patient was working with physical and occupational therapists. The patient's primary medical doctor, wants the patient to be discharged to short-term half-way for stabilization of her blood sugar. Bed was secured, and the patient was able to be [facility] for blood sugar management and optimization. DISCHARGE DIAGNOSES: 1. Hyperglycemia secondary to diabetes. 2. Diabetes mellitus, uncontrolled . 3. Alcohol abuse. 4. Hyperlipidemia. 5. Hypertension. 6. Noncompliance. 7. History of hepatitis B. 8. Acute hyponatremia -resolved. DISCHARGE MEDICATIONS: See medication reconciliation list. DISCHARGE INSTRUCTIONS: The patient discharged to prison facility for [facility]term. Follow up with medical doctor at the facility. Adelaida Kasper M.D. Susan Olivarez N.P. ([facility]) DR: SHANNON JOB#: [id number] CC: USAMA
== END 2016-08-12 20:30 | DRG 420 ==
LOC: EDBD 13:16 → EMR 13:45 → EDBEDREQ 14:15 → 4E 14:45 → EDBEDREQ 16:06
DX: E11.65 Type 2 diabetes mellitus with hyperglycemia (principal); B19.10 Unspecified viral hepatitis B without hepatic coma; I16.0 Hypertensive urgency; F10.10 Alcohol abuse, uncomplicated; J45.909 Unspecified asthma, uncomplicated; E87.1 Hypo-osmolality and hyponatremia; E78.5 Hyperlipidemia, unspecified; Z91.19 Patient's noncompliance with other medical treatment and regimen; Z79.4 Long term (current) use of insulin
CPT/HCPCS: 36415; 71010; 80053; 80061; 81003; 82009; 82550; 82553; 82962; 83036; 83735; 84443; 84484; 85025; 87081; 87493; 93005; 94664; J1815; S5561

== ENCOUNTER 2016-12-13 21:10 | Emergency (ER) | payer MEDICARE, MEDICAID ==
[~2016-12-13] VITALS: Ht 172.7 cm; Wt 68.0 kg
[~2016-12-13 21:10] MED LIST changes: +FOLIC ACID1 MG ORAL; +MIRTAZAPINE15 M1 ORAL; +MULTIVITAMINS1 EAC2 ORAL; +RESTASIS1 EACH BOTH EYES; +THIAMINE HCL100 MG ORAL
--- NOTE | 2016-12-13 21:14 | Emergency Room Report ---
History of Present Illness General Source: Patient Present Illness HPI Is a 76-year-old female with history insulin-dependent diabetes. She presents with chief complaint of joint weakness for last 2 days. No fever chills been no nausea vomiting. Decreased appetite. No chest pain. No urinary complaint. Also complaining of left shoulder left hip pain. She has chronic pain in his on [place]. She is out of her [place] because she forgot that she has to get refill on the 30. Also has limited diarrhea. No vomiting however. No focal deficit. Allergies: Coded Allergies: No Known Allergies (Unverified , 10/15/12) Patient History Past Medical History: see triage record, old chart reviewed Past Surgical History: other Pertinent Family History: none Social History: Denies: smoking Now: No Immunizations: other Reviewed Nursing Documentation: PMH: Agreed, PSxH: Agreed Nursing Documentation-PMH Hx Cardiac Problems: Yes Hx Hypertension: Yes Hx Asthma: Yes Hx Diabetes: Yes Hx Cancer: No Hx Gastrointestinal Problems: Yes Hx Neurological Problems: No Review of Systems Constitutional: Reports: weakness Eye: Denies: blurred vision, eye pain ENT: Denies: ear pain, nose congestion, throat swelling Respiratory: Denies: cough, shortness of breath Cardiovascular: Denies: chest pain, palpitations Gastrointestinal: Denies: abdominal pain, diarrhea, nausea, vomiting Musculoskeletal: Denies: back pain, joint pain Skin: Denies: rash Neurological: Denies: headache, numbness Endocrine: Denies: increased thirst, increased urine Hematologic/Lymphatic: Denies: easy bruising All Other Systems: negative except mentioned in HPI Physical Exam vitals with hypertension Sp02 EP Interpretation: reviewed, normal General Appearance: well appearing, no apparent distress, alert Head: normocephalic, atraumatic Eyes: bilateral eye EOMI, bilateral eye PERRL ENT: hearing grossly normal, normal pharynx Neck: full range of motion, supple, no meningismus Respiratory: chest non-tender, lungs clear, normal breath sounds Cardiovascular #1: regular rate, rhythm, no murmur Gastrointestinal: normal bowel sounds, non tender, no mass, no organomegaly, no bruit, non-distended Musculoskeletal: back normal, gait/station normal, normal range of motion Psychiatric: mood/affect normal Skin: warm/dry Medical Decision Making Diagnostic Impression: Primary Impression: Episode of generalized weakness Additional Impression: Hyperglycemia due to type 1 diabetes mellitus ER Course Patient present with generalize weakness. She has hyperglycemia but no DKA. Multiple presentation in the past with a similar complaint. Suspect possible opioid withdrawal said she's been out of her medication. No complaint here. She felt better now. We'll discharge home. Lab Results Impression labs with elevated glucose EKG Diagnostic Results EKG Time: 21:26 Rate: normal Rhythm: NSR ST Segments: no acute changes Rhythm Strip Diag. Results Rhythm Strip Time: 21:26 EP Interpretation: yes Rate: 62 Rhythm: NSR, no PVC's, no ectopy Chest X-Ray Diagnostic Results Chest X-Ray Diagnostic Results : Chest X-Ray Ordered: Yes Indication: Chest Pain EP Interpretation: Yes Interpretation: no consolidation Impression: No acute disease Interpreting ER Provider: Electronically signed by aMrgarito Woodard MD Status: improved Disposition: HOME, SELF-CARE Condition: Stable Scripts Hydrocodone/Acetaminophen 5-325* (HYDROCODONE/ACETAMINOPHEN 5-325*) 1 Each Tablet 1 TAB ORAL Q6H Y for For Pain, #10 TAB 0 Refills Prov: MARGARITO WOODARD M.D. 12/13/16 Patient Instructions: Weakness Additional Instructions: Followup with your DrChelsey in 2-3 days. Return if symptom worsen. See your DrChelsey for refills of your pain medication. MARGARITO WOODARD M.D. Dec 13, 2016 21:14
[2016-12-13] MEDS ORDERED: HYDROmorphone 1mg/ml Carpuject IVP ONE (21:15)
[2016-12-13 22:00] LABS: APPEARANCE,URINE CLEAR; KETONES,URINE NEGATIVE (NEGATIVE); LEUKOCYTE ESTERASE ,URINE 1+ (NEGATIVE); NITRITE,URINE NEGATIVE (NEGATIVE); PH,URINE 6.5 (4.5-8.0); PROTEIN,URINE 1+ (NEGATIVE); UROBILINOGEN,URINE NORMAL MG/DL (0.0-1.0)
[2016-12-13 22:07] VITALS: BP 140/68
[2016-12-13 22:09] LABS: SQUAMOUS EPITHELIAL CELL,UR OCCASIONAL /LPF (NONE/OCC); WBC,URINE 0-2 /HPF (0 - 2)
[2016-12-13 22:27] LABS: BASOPHILS % (AUTO) 1.8 % (0.0-2.0); EOSINOPHILS % (AUTO) 4.1 % (0.0-3.0); LYMPHOCYTES % (AUTO) 53.6 % (20.0-45.0); MEAN CORPUSCULAR HEMOGLOBIN 29.5 PG (27.0-31.0); MEAN CORPUSCULAR HGB CONC 33.7 G/DL (32.0-36.0); MEAN CORPUSCULAR VOLUME 87 FL (80-99); MEAN PLATELET VOLUME 6.5 FL (6.5-10.1); MONOCYTES % (AUTO) 6.6 % (1.0-10.0); NEUTROPHILS % (AUTO) 33.9 % (45.0-75.0); PLATELET COUNT 257 K/UL (150-450); RED BLOOD COUNT 4.39 M/UL (4.20-5.40); RED CELL DISTRIBUTION WIDTH 12.7 % (11.6-14.8); WHITE BLOOD COUNT 5.9 K/UL (4.8-10.8)
[2016-12-13 22:40] LABS: TROPONIN I < 0.30 ng/mL (<=0.30)
[2016-12-13 22:44] LABS: ALANINE AMINOTRANSFERASE 29 U/L (3-33); ALBUMIN/GLOBULIN RATIO 1.3 (1.0-2.7); ANION GAP 12 (5-15); ASPARTATE AMINO TRANSFERASE 26 U/L (5-40); CALCIUM 9.5 mg/dL (8.6-10.2); CARBON DIOXIDE 23 mEQ/L (20-30); CHLORIDE 99 mEQ/L (98-107); HEMOLYSIS 26; POTASSIUM 4.4 mEQ/L (3.4-4.9); SODIUM 134 mEQ/L (135-145); TOTAL PROTEIN 6.6 g/dL (6.6-8.7)
[2016-12-13 22:54] LABS: CKMB 1.7 ng/mL (< 3.8)
[2016-12-13] MEDS ORDERED: HYDROCODON-ACE1 EA15 ORAL (23:15)
[2016-12-13] MEDS ORDERED: Zolpidem 5mg tab ORAL PRN (23:15)
[2016-12-13] MEDS ORDERED: Mylanta II UD 30ml ORAL PRN (23:15)
[2016-12-13] MEDS ORDERED: Morphine Sulfate 2mg/ml Inj IVP PRN (23:15)
[2016-12-13] MEDS ORDERED: LORazepam Inj 2mg/ml 1ml IV PRN (23:15)
[2016-12-13] MEDS ORDERED: Miralax 17gm pkt ORAL PRN (23:15)
[2016-12-13 23:34] VITALS: BP 140/68
[2016-12-14] MEDS ORDERED: NovoLOG Insulin Flexpen SUBQ SCH (06:30)
[2016-12-14] MEDS ORDERED: Aspirin Baby 81mg NG SCH (09:00)
--- NOTE | 2016-12-14 15:17 | Diagnostic Imaging Report ---
Indication: Chest pain Comparison: 08/08/16 A single view chest radiograph was obtained. Findings: Persistent blunting of the left costophrenic angle demonstrated. This is probably due to chronic pleural disease or scarring. The heart is mildly enlarged. Aorta is mildly enlarged. Bones are osteopenic. Impression: No acute cardiopulmonary disease Left basilar pleural scarring
--- NOTE | 2016-12-14 16:48 | Cardiology Report ---
APPROVED REPORT EKG Measurement Heart [id number] Normal sinus rhythm Normal ECG
== END 2016-12-13 23:45 | disposition home or self-care (01) ==
LOC: EDBD 21:10 → EMR 21:27
DX: R53.1 Weakness (principal); E10.65 Type 1 diabetes mellitus with hyperglycemia; I10 Essential (primary) hypertension; J45.909 Unspecified asthma, uncomplicated
CPT/HCPCS: 36415; 71010; 80053; 81003; 82550; 82553; 84484; 85025; 93005; 96374; 96375; 99284; J1170; J2405

== ENCOUNTER 2018-02-01 04:57 | Inpatient (IN) | payer MEDICARE, MEDICAID ==
[~2018-02-01] VITALS: Ht 157.5 cm; Wt 65.8 kg
[~2018-02-01 04:57] MED LIST changes: +HYDROCODON-ACE1 EA15 ORAL
[2018-02-01 05:12] VITALS: BP 191/105
[2018-02-01] MEDS ORDERED: Isovue-300 100ml vial INJ PRN (05:15)
[2018-02-01] MEDS ORDERED: Morphine Sulfate 2mg/ml Inj(IV/IM USE ONLY) IVP ONE ×2 (05:15→07:30)
[2018-02-01 05:30] LABS: BASOPHILS % (AUTO) 1.2 % (0.0-2.0); EOSINOPHILS % (AUTO) 0.2 % (0.0-3.0); HEMATOCRIT 48.8 % (37.0-47.0); HEMOGLOBIN 16.2 G/DL (12.0-16.0); LYMPHOCYTES % (AUTO) 15.6 % (20.0-45.0); MEAN CORPUSCULAR VOLUME 85 FL (80-99); MONOCYTES % (AUTO) 2.7 % (1.0-10.0); NEUTROPHILS % (AUTO) 80.2 % (45.0-75.0); PLATELET COUNT 274 K/UL (150-450); RED BLOOD COUNT 5.71 M/UL (4.20-5.40); WHITE BLOOD COUNT 5.2 K/UL (4.8-10.8)
[2018-02-01 05:36] LABS: APPEARANCE,URINE CLEAR; BILIRUBIN, URINE NEGATIVE (NEGATIVE); COLOR,URINE PALE YELLOW; GLUCOSE, URINE (UA) 4+ (NEGATIVE); KETONES,URINE 3+ (NEGATIVE); LEUKOCYTE ESTERASE ,URINE NEGATIVE (NEGATIVE); NITRITE,URINE NEGATIVE (NEGATIVE); PH,URINE 7 (4.5-8.0); PROTEIN,URINE 4+ (NEGATIVE); UROBILINOGEN,URINE NORMAL MG/DL (0.0-1.0)
[2018-02-01 05:41] LABS: ANION GAP 15 mmol/L (5-15); BLOOD UREA NITROGEN 17 mg/dL (7-18); CALCIUM 10.2 MG/DL (8.5-10.1); CARBON DIOXIDE 23 MMOL/L (21-32); CHLORIDE 94 MMOL/L (98-107); CREATININE 1.1 MG/DL (0.55-1.30); POTASSIUM 3.8 MMOL/L (3.5-5.1); SODIUM 132 MMOL/L (136-145)
[2018-02-01 05:45] LABS: ALANINE AMINOTRANSFERASE 31 U/L (12-78); ALBUMIN 3.8 G/DL (3.4-5.0); ALBUMIN/GLOBULIN RATIO 0.8 (1.0-2.7); ALKALINE PHOSPHATASE 122 U/L (46-116); ASPARTATE AMINO TRANSFERASE 23 U/L (15-37); BILIRUBIN,TOTAL 0.7 MG/DL (0.2-1.0)
--- NOTE | 2018-02-01 06:25 | Emergency Room Report ---
History of Present Illness General Chief Complaint: Abdominal Pain Source: Patient, EMS Present Illness HPI Patient is 77-year-old female brought in by EMS after increased abdominal pain and vomiting. Patient prior history of pancreatitis. The patient noted to have epigastric pain which she describes constant in nature. Radiates to back. Patient reports having increased pain as well as persistent vomiting. She prior history of type 2 diabetes. Patient denies any prior surgeries. She had the nonbilious nonbloody vomit. She denies any recent alcohol use. Allergies: Coded Allergies: No Known Allergies (Unverified , 10/15/12) Patient History Past Medical History: see triage record Past Surgical History: none Reviewed Nursing Documentation: PMH: Agreed; PSxH: Agreed Nursing Documentation-PMH Hx Cardiac Problems: Yes Hx Hypertension: Yes Hx Asthma: Yes Hx Diabetes: Yes Hx Cancer: No Hx Gastrointestinal Problems: Yes - PANCREATITIS Hx Neurological Problems: No Review of Systems All Other Systems: negative except mentioned in HPI Physical Exam Vital Signs Date Time Temp Pulse Resp B/P (MAP) Pulse Ox O2 Delivery O2 Flow Rate FiO2 02/01/18 04:59 98.4 96 18 190/90 98 Room Air 98.4 Sp02 EP Interpretation: reviewed, normal General Appearance: normal inspection, alert, GCS 15, Chronically Ill Head: atraumatic ENT: normal ENT inspection, hearing grossly normal, normal voice, dry mucus membranes Neck: normal inspection, full range of motion, supple, no bony tend Respiratory: normal inspection, lungs clear, normal breath sounds, no respiratory distress, no retraction, no wheezing Cardiovascular #1: regular rate, rhythm, no edema Gastrointestinal: non tender, soft, no hernia, tenderness Genitourinary: no CVA tenderness Musculoskeletal: normal inspection, back normal, normal range of motion Neurologic: normal inspection, alert, oriented x3, responsive, speech normal Psychiatric: normal inspection, judgement/insight normal, mood/affect normal Skin: normal inspection, no rash, pallor Medical Decision Making Diagnostic Impression: Primary Impression: Abdominal pain Additional Impressions: Lactic acidosis Hyperglycemia Dehydration Umbilical hernia Pancreatic duct dilated Pancreatitis ER Course Patient presented for abdominal pain. Differential diagnoses included ischemic bowel, appendicitis, perforated viscus, abdominal aortic aneurysm, inferior myocardial infarction, viral gastroenteritis. Because of complexity of patient' s case laboratory testing and imaging studies were ordered.The laboratory testing was notable for elevated blood sugar as well as elevated lactic acid level. Patient was noted to have prior history of diabetes. The patient started on IV fluids. CT abdomen pelvis was ordered due to patient's severe pain. The patient given IV fluids as well as IV pain medications. Ct of abdomen and pelvis No radiopaque gallstones. Atrophic pancreas with dilated duct and multiple calcifications, may be secondary to chronic pancreatitis or intraductal papillary mucinous lesion. No intrahepatic duct dilatation. Prominent common duct. No pyelonephritis or hydronephrosis. Several subcentimeter hypodense lesions in kidneys may represent cysts. Normal caliber abdominal aorta with atherosclerotic disease. Diverticulosis without evidence of diverticulitis. Normal appendix. No bowel obstruction. Moderate size right periumbilical hernia containing fat. Small hiatal hernia. The patient was discussed with Dr. Weathers for Dr. Good for inpatient management due to capitated physician. Labs Test 02/01/18 05:15 02/01/18 05:23 White Blood Count 5.2 K/UL (4.8-10.8) Red Blood Count 5.71 M/UL (4.20-5.40) Hemoglobin 16.2 G/DL (12.0-16.0) Hematocrit 48.8 % (37.0-47.0) Mean Corpuscular Volume 85 FL (80-99) Mean Corpuscular Hemoglobin 28.5 PG (27.0-31.0) Mean Corpuscular Hemoglobin Concent 33.3 G/DL (32.0-36.0) Red Cell Distribution Width 11.0 % (11.6-14.8) Platelet Count 274 K/UL (150-450) Mean Platelet Volume 6.3 FL (6.5-10.1) Neutrophils (%) (Auto) 80.2 % (45.0-75.0) Lymphocytes (%) (Auto) 15.6 % (20.0-45.0) Monocytes (%) (Auto) 2.7 % (1.0-10.0) Eosinophils (%) (Auto) 0.2 % (0.0-3.0) Basophils (%) (Auto) 1.2 % (0.0-2.0) Prothrombin Time 10.2 SEC (9.30-11.50) Prothromb Time International Ratio 1.0 (0.9-1.1) Activated Partial Thromboplast Time 24 SEC (23-33) Sodium Level 132 MMOL/L (136-145) Potassium Level 3.8 MMOL/L (3.5-5.1) Chloride Level 94 MMOL/L (98-107) Carbon Dioxide Level 23 MMOL/L (21-32) Anion Gap 15 mmol/L (5-15) Blood Urea Nitrogen 17 mg/dL (7-18) Creatinine 1.1 MG/DL (0.55-1.30) Estimat Glomerular Filtration Rate mL/min (>60) Glucose Level 471 MG/DL (74-106) Lactic Acid Level 2.20 mmol/L (0.4-2.0) Calcium Level 10.2 MG/DL (8.5-10.1) Total Bilirubin 0.7 MG/DL (0.2-1.0) Aspartate Amino Transf (AST/SGOT) 23 U/L (15-37) Alanine Aminotransferase (ALT/SGPT) 31 U/L (12-78) Alkaline Phosphatase 122 U/L (46-116) Troponin I 0.000 ng/mL (0.000-0.056) Total Protein 8.7 G/DL (6.4-8.2) Albumin 3.8 G/DL (3.4-5.0) Globulin 4.9 g/dL Albumin/Globulin Ratio 0.8 (1.0-2.7) Lipase 105 U/L (73-393) Urine Color Pale yellow Urine Appearance Clear Urine pH 7 (4.5-8.0) Urine Specific [place] 1.010 (1.005-1.035) Urine Protein 4+ (NEGATIVE) Urine Glucose (UA) 4+ (NEGATIVE) Urine Ketones 3+ (NEGATIVE) Urine Blood 5+ (NEGATIVE) Urine Nitrite Negative (NEGATIVE) Urine Bilirubin Negative (NEGATIVE) Urine Urobilinogen Normal MG/DL (0.0-1.0) Urine Leukocyte Esterase Negative (NEGATIVE) Urine RBC Tntc /HPF (0 - 2) Urine WBC 0-2 /HPF (0 - 2) Urine Squamous Epithelial Cells Few /LPF (NONE/OCC) Urine Bacteria Few /HPF (NONE) EKG Diagnostic Results Rate: tachycardiac Rhythm: NSR ST Segments: no acute changes Last Vital Signs Date Time Temp Pulse Resp B/P (MAP) Pulse Ox O2 Delivery O2 Flow Rate FiO2 02/01/18 05:51 98.4 02/01/18 05:12 88 14 191/105 99 Room Air Status: unchanged Disposition: ADMITTED INPATIENT Condition: Serious Referrals: NON PHYSICIAN (PCP) Thomas Turcios MD Feb 01, 2018 06:25
[2018-02-01] MEDS ORDERED: Insulin Human Regular 100units/ml 3ml IV ONE (06:45)
[2018-02-01 07:15] VITALS: BP 191/105
[2018-02-01 08:16] VITALS: BP 183/88
[2018-02-01 09:41] VITALS: BP 171/108
[2018-02-01] MEDS: Aspirin EC 81mg tab ORAL SCH ×2 (10:05→12:34)
[2018-02-01] MEDS: Docusate 100mg cap ORAL SCH ×2 (10:05→12:33)
--- NOTE | 2018-02-01 10:28 | Diagnostic Imaging Report ---
Indication: Trauma pain Technique: CT of the abdomen and pelvis utilizing automated exposure control with intravenous contrast. Venous scanning performed. Axial, sagittal and coronal reformats presented. CT dose: Total DLP 683.84 mGycm; CTDI vol 13.21 mGy Comparison: MRI of the abdomen 02/18/2016; CT of the abdomen 10/20/2014 Findings: Unchanged linear scarring/atelectasis along the periphery of the left major fissure. There are dependent atelectatic changes in the bilateral posterior lower lobes. There are extensive coronary arterial calcifications. Heart size within normal limits. There is trace pericardial effusion. Hepatic contour is smooth. No radiopaque gallstones. Common bile duct is again noted to be dilated although degree of distention is decreased compared to the exam of 02/18/2016. No intrahepatic biliary duct dilatation. Again noted is an atrophic pancreas with multiple calcifications which may be secondary to chronic pancreatitis or intraductal papillary mucinous neoplasm. Spleen, adrenal glands unremarkable. Multiple low-attenuation lesions noted in the kidneys possibly representing simple cysts. No urinary tract stones or hydronephrosis. Bladder is unremarkable. Patient again noted to be status post hysterectomy. There is no free intraperitoneal air or fluid. No evidence of small bowel obstruction or definite inflammatory change in the mesentery. Is colonic diverticulosis. No pathologically enlarged lymphadenopathy. Abdominal aorta normal in caliber with a sclerotic calcifications. There is a right periumbilical fat-containing hernia. There are degenerative changes of the spine. No acute osseous abnormality. IMPRESSION: * Atrophic pancreas with dilated pancreatic duct and multiple calcifications. Findings are suggestive of chronic pancreatitis. Additional etiologies including intraductal papillary mucinous neoplasm can also be considered although thought less likely. Correlate clinically. No definite peripancreatic fat stranding identified. * Dilatation of the common bile duct, as seen on prior exams. No intrahepatic biliary ductal dilatation. Correlation with LFTs recommended. * Diverticulosis without evidence of diverticulitis. * Moderate-sized right periumbilical fat-containing hernia. * Atherosclerotic disease. * Coronary artery disease Additional incidental findings as above. This corresponds with the preliminary report. The CT scanner at [facility] is accredited by the [employer] and the scans are performed using protocols designed to limit radiation exposure to as low as reasonably achievable to attain images of sufficient resolution adequate for diagnostic evaluation.
--- NOTE | 2018-02-01 11:10 | GI Initial Consult Note ---
History of Present Illness General Date patient seen: Feb 01, 2018 Time patient seen: 13:52 Reason for Hospitalization: Abdominal Pain Referring physician: MCCLELLAN Reason for Consultation: N/V Present Illness HPI The patient is a pleasant 77-year-old female, who presented to the emergency room with several days, over the past week of abdominal pain and vomiting. She does have a history of alcoholic pancreatitis. The patient states she has not been drinking for a long time greater than one month. She has noticed her abdominal epigastric pain, constant that was going towards her back and she has been consistently vomiting. She states she has had difficulties controlling her diabetes recently. She has not noticed any blood in her vomiting. No chest pain or shortness of breath. GI consulted for N/V. Patient with history of chronic pancreatitis, as seen on recent CT presents today with N/V/D. Pt, seen awake A&Ox4 nauseated with earlier episodes of vomiting. Denies any hematemesis nor coffee grounds. This patient had previous admission here at [place], found to have multiple gastric ulcers from an EGD and EUS. She also has a history of H. Pylori, in which she was given the Rx for treatment. At this time, it is unknown if the patient had completed the course. Colonoscopy was performed last year, found to have diverticulosis. Indication for Procedure: anemia, abd pain Procedures Performed: EGD, other - EUS Operative Findings/Diagnosis: multiple gastric ulcers CYNDI BLOOM Feb 18, 2016 12:25 Home Meds Active Scripts Hydrocodone/Acetaminophen 5-325* (HYDROCODONE/ACETAMINOPHEN 5-325*) 1 Each Tablet, 1 TAB ORAL Q6H PRN for For Pain, #10 TAB 0 Refills Prov:ADELE SUTTON M.D. 12/13/16 Thiamine Hcl (VITAMIN B1*) 100 Mg Tablet, 100 MG ORAL DAILY for 30 Days, TAB Prov:Susan Olivarez CONTROL CHEMIST 08/12/16 Multivitamins* (MULTIVITAMINS*) 1 Each Tablet, 1 TAB ORAL DAILY, #30 TAB Prov:Susan Olivarez CONTROL CHEMIST 08/12/16 Folic Acid* (FOLIC ACID*) 1 Mg Tablet, 1 MG ORAL DAILY, #30 TAB Prov:Susan Olivarez NP 08/12/16 Insulin Aspart (Novolog Flexpen) 100 Unit/1 Ml Insuln.pen, 0 UNITS SUBQ BEFORE MEALS AND HS, #1 EA Prov:Susan Olivarez NP 08/12/16 Insulin Aspart (Novolog Flexpen) 100 Unit/1 Ml Insuln.pen, 5 UNITS SUBQ NOVOTIAC , #1 EA Prov:Susan Olivarez NP 08/12/16 Insulin Detemir (LEVEMIR FLEXPEN) 100 Unit/1 Ml Insuln.pen, 8 UNITS SUBQ Q12HR, #1 EA Prov:Susan Olivarez NP 08/12/16 Metformin Hcl* (GLUCOPHAGE*) 500 Mg Tablet, 500 MG ORAL TIAC for 30 Days, TAB Prov:Adelaida Kasper MD 08/02/16 Insulin Detemir (LEVEMIR FLEXPEN) 100 Unit/1 Ml Insuln.pen, 15 UNITS SUBQ QHS for 30 Days, EA Prov:Adelaida Kasper MD 08/02/16 Insulin Aspart (Novolog Flexpen) 100 Unit/1 Ml Insuln.pen, 5 UNITS SUBQ NOVOTIAC for 30 Days, EA Prov:Adelaida Kasper MD 08/02/16 Ibuprofen* (MOTRIN*) 600 Mg Tablet, 600 MG ORAL THREE TIMES A DAY, #30 TAB 0 Refills Prov:ADELE SUTTON M.D. 07/19/16 Metformin Hcl* (METFORMIN HCL*) 500 Mg Tablet, 1000 MG ORAL TWICE A DAY, #120 TAB Prov:Cory Jacobson M.D. 04/08/16 Atorvastatin Calcium* (LIPITOR*) 10 Mg Tablet, 40 MG ORAL BEDTIME, #30 TAB Prov:Cory Jacobson M.D. 04/08/16 Walker (ULTRA-LIGHT ROLLATOR) 1 Each Each, 1 EACH , #1 Prov:Cory Jacobson M.D. 04/08/16 Glimepiride* (GLIMEPIRIDE*) 1 Mg Tablet, 2 MG ORAL BEFORE BREAKFAST for 30 Days , TAB Prov:Cory Jacobson M.D. 02/19/16 Aspirin* (ASPIRIN*) 81 Mg Tab.chew, 81 MG NG DAILY for 30 Days, TAB Prov:Cory Jacobson M.D. 02/19/16 Reported Medications Cyclosporine (RESTASIS) 1 Each [place], 1 DROP BOTH EYES EVERY 12 HOURS, #1 EA 0 Refills 08/08/16 Mirtazapine (MIRTAZAPINE) 15 Mg Tab.rapdis, 15 MG ORAL BEDTIME, TAB 08/08/16 Omeprazole (OMEPRAZOLE) 20 Mg Capsule.dr, 20 MG ORAL DAILY, CAP 05/23/16 Unable to Obtain Medications (UNABLE TO OBTAIN MEDS) 1 Ea Ea 04/26/16 Dorzolamide Hcl/Timolol Maleat (COSOPT EYE DROPS) 10 Ml Drops, 10 ML OP BID 03/29/13 Atenolol* (TENORMIN*) 50 Mg Tablet, 50 MG ORAL DAILY 03/29/13 Med list reviewed/reconciled: Yes Allergies: Coded Allergies: No Known Allergies (Unverified , 10/15/12) Patient History History Provided By: Patient, Medical Record Social History: Reports: alcohol use Review of Systems All Other Systems: negative except mentioned in HPI Physical Exam Vital Signs Date Time Temp Pulse Resp B/P (MAP) Pulse Ox O2 Delivery O2 Flow Rate FiO2 02/01/18 04:59 98.4 96 18 190/90 98 Room Air 98.4 Sp02 EP Interpretation: reviewed, normal Labs Laboratory Tests Test 02/01/18 05:15 02/01/18 05:23 02/01/18 07:01 White Blood Count 5.2 K/UL (4.8-10.8) Red Blood Count 5.71 M/UL (4.20-5.40) H Hemoglobin 16.2 G/DL (12.0-16.0) H Hematocrit 48.8 % (37.0-47.0) H Mean Corpuscular Volume 85 FL (80-99) Mean Corpuscular Hemoglobin 28.5 PG (27.0-31.0) Mean Corpuscular Hemoglobin Concent 33.3 G/DL (32.0-36.0) Red Cell Distribution Width 11.0 % (11.6-14.8) L Platelet Count 274 K/UL (150-450) Mean Platelet Volume 6.3 FL (6.5-10.1) L Neutrophils (%) (Auto) 80.2 % (45.0-75.0) H Lymphocytes (%) (Auto) 15.6 % (20.0-45.0) L Monocytes (%) (Auto) 2.7 % (1.0-10.0) Eosinophils (%) (Auto) 0.2 % (0.0-3.0) Basophils (%) (Auto) 1.2 % (0.0-2.0) Prothrombin Time 10.2 SEC (9.30-11.50) Prothromb Time International Ratio 1.0 (0.9-1.1) Activated Partial Thromboplast Time 24 SEC (23-33) Sodium Level 132 MMOL/L (136-145) L Potassium Level 3.8 MMOL/L (3.5-5.1) Chloride Level 94 MMOL/L (98-107) L Carbon Dioxide Level 23 MMOL/L (21-32) Anion Gap 15 mmol/L (5-15) Blood Urea Nitrogen 17 mg/dL (7-18) Creatinine 1.1 MG/DL (0.55-1.30) Estimat Glomerular Filtration Rate mL/min (>60) Glucose Level 471 MG/DL (74-106) H Lactic Acid Level 2.20 mmol/L (0.4-2.0) H 1.10 mmol/L (0.66-2.22) Calcium Level 10.2 MG/DL (8.5-10.1) H Total Bilirubin 0.7 MG/DL (0.2-1.0) Aspartate Amino Transf (AST/SGOT) 23 U/L (15-37) Alanine Aminotransferase (ALT/SGPT) 31 U/L (12-78) Alkaline Phosphatase 122 U/L (46-116) H Troponin I 0.000 ng/mL (0.000-0.056) Total Protein 8.7 G/DL (6.4-8.2) H Albumin 3.8 G/DL (3.4-5.0) Globulin 4.9 g/dL Albumin/Globulin Ratio 0.8 (1.0-2.7) L Lipase 105 U/L (73-393) Serum Alcohol < 3 mg/dL Urine Color Pale yellow Urine Appearance Clear Urine pH 7 (4.5-8.0) Urine Specific [place] 1.010 (1.005-1.035) Urine Protein 4+ (NEGATIVE) H Urine Glucose (UA) 4+ (NEGATIVE) H Urine Ketones 3+ (NEGATIVE) H Urine Blood 5+ (NEGATIVE) H Urine Nitrite Negative (NEGATIVE) Urine Bilirubin Negative (NEGATIVE) Urine Urobilinogen Normal MG/DL (0.0-1.0) Urine Leukocyte Esterase Negative (NEGATIVE) Urine RBC Tntc /HPF (0 - 2) H Urine WBC 0-2 /HPF (0 - 2) Urine Squamous Epithelial Cells Few /LPF (NONE/OCC) Urine Bacteria Few /HPF (NONE) General Appearance: well appearing, no apparent distress, alert Head: normocephalic EENT: PERRL/EOMI, normal ENT inspection Neck: supple Respiratory: normal breath sounds, no respiratory distress Cardiovascular: normal rate Gastrointestinal: normal inspection, non tender, soft, normal bowel sounds, non -distended Rectal: deferred Genitourinary: no CVA tenderness Musculoskeletal: normal inspection, back normal Neurologic: normal inspection, alert, oriented x3, responsive Psychiatric: normal inspection, judgement/insight normal, memory normal Skin: normal inspection, normal color, no rash, warm/dry, palpation normal, well hydrated Lymphatic: normal inspection, no adenopathy Current Medications Current Medications Medications (Trade) Dose Ordered Sig/Juan Route PRN Reason Start Time Stop Time Status Last Admin Dose Admin Acetaminophen (Tylenol) 650 mg Q4H PRN ORAL Mild Pain (Pain Scale 1-3) 02/01/18 08:00 03/03/18 07:59 Aspirin (Ecotrin) 81 mg DAILY ORAL 02/01/18 09:00 03/03/18 08:59 02/01/18 10:05 Atenolol (Tenormin) 50 mg DAILY ORAL 02/01/18 10:00 03/03/18 09:59 Atorvastatin Calcium (Lipitor) 40 mg QHS ORAL 02/01/18 21:00 03/03/18 20:59 Clonidine HCl (Catapres Tab) 0.1 mg Q6H PRN ORAL SBP > 160mmHg 02/01/18 08:30 03/03/18 08:29 02/01/18 10:11 Dextrose (Dextrose 50%) 25 ml STAT PRN IV Hypoglycemia 02/01/18 08:00 03/03/18 07:59 Dextrose (Dextrose 50%) 50 ml STAT PRN IV Hypoglycemia 02/01/18 08:00 03/03/18 07:59 Diphenhydramine HCl (Benadryl) 25 mg Q6H PRN ORAL Itching/Pruritis 02/01/18 08:00 03/03/18 07:59 Docusate Sodium (Colace) 100 mg EVERY 12 HOURS ORAL 02/01/18 09:00 03/03/18 08:59 02/01/18 10:05 Dorzolamide/ Timolol (Cosopt) 1 drop TWICE A DAY BOTH EYES 02/01/18 10:30 03/03/18 10:29 Enoxaparin Sodium (Lovenox) 40 mg Q24H SUBQ 02/01/18 09:00 03/03/18 08:59 Famotidine (Pepcid) 40 mg DAILY ORAL 02/01/18 09:00 03/03/18 08:59 02/01/18 10:05 Folic Acid (Folate) 1 mg DAILY ORAL 02/01/18 10:00 03/03/18 09:59 Insulin Detemir (Levemir) 10 units BEDTIME SUBQ 02/01/18 21:00 03/03/18 20:59 Iopamidol (Isovue-300 100ml) 100 ml NOW PRN INJ Radiology Procedure 02/01/18 05:15 Mirtazapine (Remeron) 15 mg BEDTIME ORAL 02/01/18 21:00 03/03/18 20:59 Morphine Sulfate (Morphine Sulfate) 1 mg Q6H PRN IVP For Pain 02/01/18 10:15 02/08/18 10:14 Ondansetron HCl (Zofran) 4 mg Q6H PRN IVP Nausea & Vomiting 02/01/18 08:00 03/03/18 07:59 02/01/18 10:05 Sodium Chloride 1,000 ml @ 125 mls/hr Q8H IVLG 02/01/18 08:48 03/03/18 08:47 02/01/18 10:06 Thiamine HCl (Vitamin B1) 100 mg DAILY ORAL 02/01/18 10:00 03/03/18 09:59 GI: Plan Problems: (1) H pylori ulcer (2) Vomiting (3) Intractable abdominal pain (4) Diabetes mellitus type 2, uncontrolled, with complications (5) Pancreatitis (6) Alcohol abuse (7) Gastric ulcer (8) Common bile duct dilation Plan H. pylori infection hx of multiple gastric ulcers hx of ETOH abuse chronic pancreatitis EGD scheduled for tomorrow. - NPO @ [place]. Hold all blood thinners. fu abdominal U/S CLD, adv as tolerated ppi + carafate pancrease reglan prn for N/V pain mgmt fu labs Discussed with Dr. Bloom. Thank you for this patient referral, we will follow. The patient was seen and examined at bedside and all new and available data was reviewed in the patients chart. I agree with the above findings, impression and plan. (Patient seen earlier today. Signature stamp does not reflect patient encounter time.). - MD Yamilet ZhangBanner Rehabilitation Hospital WestJeffrey CONTROL CHEMIST Feb 01, 2018 11:10
[2018-02-01] MEDS: Morphine Sulfate 2mg/ml Inj(IV/IM USE ONLY) IVP PRN (11:16)
--- NOTE | 2018-02-01 11:45 | History and Physical Report ---
DATE OF ADMISSION: 02/01/2018 REASON FOR ADMISSION: 1. Elevated glucose. 2. Abdominal pain. 3. Pancreatitis. HISTORY OF PRESENT ILLNESS: The patient is a pleasant 77-year-old female, who presented to the emergency room with several days, over the past week of abdominal pain and vomiting. She does have a history of alcoholic pancreatitis. The patient states she has not been drinking for a long time greater than one month. She has noticed her abdominal epigastric pain, constant that was going towards her back and she has been consistently vomiting. She states she has had difficulties controlling her diabetes recently. She has not noticed any blood in her vomiting. No chest pain or shortness of breath. ALLERGIES: No known drug allergies. PAST MEDICAL HISTORY: 1. Hypertension. 2. Hyperlipidemia. 3. Alcohol dependency. 4. Pancreatitis. 5. Diabetes mellitus. FAMILY HISTORY: 1. Hypertension. 2. Diabetes. PAST SURGICAL HISTORY: Noncontributory. REVIEW OF SYSTEMS: NEUROLOGIC: The patient denies headache, change in vision, syncope or presyncopal episodes. CARDIOVASCULAR: No current chest pain, palpitations, or angina. PULMONARY: No difficulty breathing or productive cough sputum. GASTROINTESTINAL/GENITOURINARY: The patient is having nausea and vomiting, but no diarrhea. ENDOCRINOLOGY: No night sweats, fevers, or chills. MUSCULOSKELETAL: The patient is feeling weak, tired, and fatigued. LABORATORY DATA: Laboratories dated February 01, 2018, sodium 132, potassium 3.8, chloride 94, BUN 17, creatinine 1.1, glucose 471, calcium 10.2. Lipase 105. Alkaline phosphatase 122. Albumin 3.8. Hemoglobin 16.8, white cell count 5.2, and platelet count 274. Serum alcohol less than 3. Urinalysis, positive for 3+ ketones. Lactic acid of 2.2 on initiation, however, currently 1.1. PHYSICAL EXAMINATION: VITAL SIGNS: Blood pressure 183/88, 100% oxygen saturation on room air, pulse 89, and temperature 98.4. GENERAL: The patient awake, not in acute distress, resting comfortably. HEENT: Extraocular muscles intact. No lymphadenopathy noted. CARDIOVASCULAR: S1, S2. No rubs or gallops. PULMONARY: Clear to auscultation bilaterally. No rales, rhonchi or wheezes. ABDOMEN: Mild tenderness. Fair bowel sounds. EXTREMITIES: No edema noted. SKIN: No rashes. ASSESSMENT AND PLAN: 1. Hyponatremia, pseudo in nature secondary to elevated glucose. At this time, discontinue aggressive hydration and management of elevated serum glucose. 2. Abdominal pain. CAT scan of the abdomen and pelvis did show an atrophic pancreas with dilated duct. Multiple calcifications. No intrahepatic dilatation. At this time, Gastroenterology and General Surgery has been consulted for further evaluation and management. 3. Diabetes mellitus. We will continue Levemir along with insulin sliding scale and Accu-Cheks. The patient currently NPO. 4. Hypertension. Continue to manage with home medications and adjust as deemed necessary. 5. DVT prophylaxis with Lovenox. 6. GI prophylaxis with famotidine. Maynor Weathers MD DR: TOMMY JOB#: [id number] CC:
[2018-02-01] MEDS: Pancrease Cap ORAL SCH ×2 (12:34→17:53)
[2018-02-01] MEDS: Thiamine 100mg tab ORAL SCH (12:34)
[2018-02-01] MEDS: Enoxaparin 40mg Inj SUBQ SCH (12:35)
[2018-02-01] MEDS: Cosopt Opth Soln 10 mL Btl BOTH EYES SCH ×2 (12:36→20:54)
[2018-02-01] MEDS ORDERED: Pancrease Cap ORAL SCH (13:00)
[2018-02-01] MEDS: NovoLOG Insulin Flexpen SUBQ SCH ×3 (13:48→20:56)
[2018-02-01] MEDS ORDERED: NovoLOG Insulin Flexpen SUBQ SCH (16:30)
[2018-02-01] MEDS ORDERED: NS 250 ML IVPB ONE (16:30)
[2018-02-01] MEDS: Sucralfate 1gm tab ORAL SCH (17:52)
[2018-02-01] MEDS ORDERED: Sucralfate 1gm tab ORAL SCH (18:00)
[2018-02-01 20:00] VITALS: BP 107/60
[2018-02-01] MEDS: Atorvastatin 20mg tab ORAL SCH (20:54)
[2018-02-01] MEDS: Levemir Flexpen SUBQ SCH (20:56)
--- NOTE | 2018-02-01 22:40 | Consultation ---
History of Present Illness General Date patient seen: Feb 01, 2018 Time patient seen: 22:39 Chief Complaint: Abdominal Pain Referring physician: MCCLELLAN Reason for Consultation: N/V Present Illness Allergies: Coded Allergies: No Known Allergies (Unverified , 10/15/12) Medication History Scheduled Aspirin* (Aspirin*), 81 MG NG DAILY Atenolol* (Tenormin*), 50 MG ORAL DAILY, (Reported) Atorvastatin Calcium* (Lipitor*), 40 MG ORAL BEDTIME Cyclosporine (Restasis), 1 DROP BOTH EYES EVERY 12 HOURS, (Reported) Dorzolamide Hcl/Timolol Maleat (Cosopt Eye Drops), 10 ML OP BID, (Reported) Folic Acid* (Folic Acid*), 1 MG ORAL DAILY Glimepiride* (Glimepiride*), 2 MG ORAL BEFORE BREAKFAST Ibuprofen* (Motrin*), 600 MG ORAL THREE TIMES A DAY Insulin Aspart (Novolog Flexpen), 5 UNITS SUBQ NOVOTIAC Insulin Aspart (Novolog Flexpen), 5 UNITS SUBQ NOVOTIAC Insulin Aspart (Novolog Flexpen), 0 UNITS SUBQ BEFORE MEALS AND HS Insulin Detemir (Levemir Flexpen), 15 UNITS SUBQ QHS Insulin Detemir (Levemir Flexpen), 8 UNITS SUBQ Q12HR Metformin Hcl* (Metformin Hcl*), 1,000 MG ORAL TWICE A DAY Metformin Hcl* (Glucophage*), 500 MG ORAL TIAC Mirtazapine (Mirtazapine), 15 MG ORAL BEDTIME, (Reported) Multivitamins* (Multivitamins*), 1 TAB ORAL DAILY Omeprazole (Omeprazole), 20 MG ORAL DAILY, (Reported) Thiamine Hcl (Vitamin B1*), 100 MG ORAL DAILY Scheduled PRN Hydrocodone/Acetaminophen 5-325* (Hydrocodone/Acetaminophen 5-325*), 1 TAB ORAL Q6H PRN for For Pain Miscellaneous Medications Unable to Obtain Medications (Unable To Obtain Meds), (Reported) Durable Medical Equipment Walker (Ultra-Light Rollator), 1 EACH [facility], (DME) Patient History Healthcare decision maker Resuscitation status Full Code Advanced Directive on File No Physical Exam Last 24 Hour Vital Signs Date Time Temp Pulse Resp B/P (MAP) Pulse Ox O2 Delivery O2 Flow Rate FiO2 02/01/18 20:00 98.6 74 17 107/60 (76) 99 98.6 02/01/18 20:00 75 02/01/18 16:00 83 02/01/18 12:00 108 02/01/18 11:50 209.1 02/01/18 11:16 209.1 02/01/18 11:10 91 166/103 02/01/18 10:14 Room Air 02/01/18 10:11 166/103 02/01/18 09:41 209.1 91 20 171/108 100 Room Air 209.1 02/01/18 09:30 98.3 89 20 171/108 100 Room Air 209.1 02/01/18 08:16 209.1 89 20 183/88 100 Room Air 209.1 02/01/18 08:03 209.1 02/01/18 07:33 98.4 02/01/18 07:15 98.4 80 20 191/105 100 Room Air 98.4 02/01/18 05:51 98.4 02/01/18 05:21 98.4 02/01/18 05:12 98.4 88 14 191/105 99 Room Air 98.4 02/01/18 04:59 98.4 96 18 190/90 98 Room Air 98.4 Intake and Output 01/31/18 02/01/18 19:00 07:00 Output Total 150 ml Balance -150 ml Output Urine Total 150 ml Laboratory Tests Test 02/01/18 05:15 02/01/18 05:23 02/01/18 07:01 White Blood Count 5.2 K/UL (4.8-10.8) Red Blood Count 5.71 M/UL (4.20-5.40) H Hemoglobin 16.2 G/DL (12.0-16.0) H Hematocrit 48.8 % (37.0-47.0) H Mean Corpuscular Volume 85 FL (80-99) Mean Corpuscular Hemoglobin 28.5 PG (27.0-31.0) Mean Corpuscular Hemoglobin Concent 33.3 G/DL (32.0-36.0) Red Cell Distribution Width 11.0 % (11.6-14.8) L Platelet Count 274 K/UL (150-450) Mean Platelet Volume 6.3 FL (6.5-10.1) L Neutrophils (%) (Auto) 80.2 % (45.0-75.0) H Lymphocytes (%) (Auto) 15.6 % (20.0-45.0) L Monocytes (%) (Auto) 2.7 % (1.0-10.0) Eosinophils (%) (Auto) 0.2 % (0.0-3.0) Basophils (%) (Auto) 1.2 % (0.0-2.0) Prothrombin Time 10.2 SEC (9.30-11.50) Prothromb Time International Ratio 1.0 (0.9-1.1) Activated Partial Thromboplast Time 24 SEC (23-33) Sodium Level 132 MMOL/L (136-145) L Potassium Level 3.8 MMOL/L (3.5-5.1) Chloride Level 94 MMOL/L (98-107) L Carbon Dioxide Level 23 MMOL/L (21-32) Anion Gap 15 mmol/L (5-15) Blood Urea Nitrogen 17 mg/dL (7-18) Creatinine 1.1 MG/DL (0.55-1.30) Estimat Glomerular Filtration Rate mL/min (>60) Glucose Level 471 MG/DL (74-106) H Lactic Acid Level 2.20 mmol/L (0.4-2.0) H 1.10 mmol/L (0.66-2.22) Calcium Level 10.2 MG/DL (8.5-10.1) H Total Bilirubin 0.7 MG/DL (0.2-1.0) Aspartate Amino Transf (AST/SGOT) 23 U/L (15-37) Alanine Aminotransferase (ALT/SGPT) 31 U/L (12-78) Alkaline Phosphatase 122 U/L (46-116) H Troponin I 0.000 ng/mL (0.000-0.056) Total Protein 8.7 G/DL (6.4-8.2) H Albumin 3.8 G/DL (3.4-5.0) Globulin 4.9 g/dL Albumin/Globulin Ratio 0.8 (1.0-2.7) L Lipase 105 U/L (73-393) Serum Alcohol < 3 mg/dL Urine Color Pale yellow Urine Appearance Clear Urine pH 7 (4.5-8.0) Urine Specific [place] 1.010 (1.005-1.035) Urine Protein 4+ (NEGATIVE) H Urine Glucose (UA) 4+ (NEGATIVE) H Urine Ketones 3+ (NEGATIVE) H Urine Blood 5+ (NEGATIVE) H Urine Nitrite Negative (NEGATIVE) Urine Bilirubin Negative (NEGATIVE) Urine Urobilinogen Normal MG/DL (0.0-1.0) Urine Leukocyte Esterase Negative (NEGATIVE) Urine RBC Tntc /HPF (0 - 2) H Urine WBC 0-2 /HPF (0 - 2) Urine Squamous Epithelial Cells Few /LPF (NONE/OCC) Urine Bacteria Few /HPF (NONE) Microbiology Date/Time Source Procedure Growth Status 02/01/18 08:33 Rectum Received Height (Feet): 5 Height (Inches): 2.00 Weight (Pounds): 127 Medications Current Medications Medications (Trade) Dose Ordered Sig/Juan Route PRN Reason Start Time Stop Time Status Last Admin Dose Admin Acetaminophen (Tylenol) 650 mg Q4H PRN ORAL Mild Pain (Pain Scale 1-3) 02/01/18 08:00 03/03/18 07:59 02/01/18 20:54 Amylase/Lipase/ Protease (Pancrease) 2 ea THREE TIMES A DAY ORAL 02/01/18 13:00 03/03/18 12:59 02/01/18 17:53 Aspirin (Ecotrin) 81 mg DAILY ORAL 02/01/18 09:00 03/03/18 08:59 02/01/18 12:34 Atenolol (Tenormin) 50 mg DAILY ORAL 02/02/18 09:00 03/04/18 08:59 Atorvastatin Calcium (Lipitor) 40 mg QHS ORAL 02/01/18 21:00 03/03/18 20:59 02/01/18 20:54 Clonidine HCl (Catapres Tab) 0.1 mg Q6H PRN ORAL SBP > 160mmHg 02/01/18 08:30 03/03/18 08:29 02/01/18 10:11 Dextrose (Dextrose 50%) 25 ml STAT PRN IV Hypoglycemia 02/01/18 12:00 03/03/18 11:59 Dextrose (Dextrose 50%) 50 ml STAT PRN IV Hypoglycemia 02/01/18 12:00 03/03/18 11:59 Diphenhydramine HCl (Benadryl) 25 mg Q6H PRN ORAL Itching/Pruritis 02/01/18 08:00 03/03/18 07:59 Docusate Sodium (Colace) 100 mg EVERY 12 HOURS ORAL 02/01/18 09:00 03/03/18 08:59 02/01/18 12:33 Dorzolamide/ Timolol (Cosopt) 1 drop TWICE A DAY BOTH EYES 02/01/18 10:30 03/03/18 10:29 02/01/18 20:54 Enoxaparin Sodium (Lovenox) 40 mg Q24H SUBQ 02/01/18 09:00 03/03/18 08:59 02/01/18 12:35 Famotidine (Pepcid) 40 mg DAILY ORAL 02/01/18 09:00 03/03/18 08:59 02/01/18 12:33 Folic Acid (Folate) 1 mg DAILY ORAL 02/01/18 10:00 03/03/18 09:59 02/01/18 12:33 Insulin Aspart (NovoLOG) BEFORE MEALS AND HS SUBQ 02/01/18 11:30 03/03/18 11:29 02/01/18 17:34 Insulin Detemir (Levemir) 10 units BEDTIME SUBQ 02/01/18 21:00 03/03/18 20:59 02/01/18 20:56 Iopamidol (Isovue-300 100ml) 100 ml NOW PRN INJ Radiology Procedure 02/01/18 05:15 Mirtazapine (Remeron) 15 mg BEDTIME ORAL 02/01/18 21:00 03/03/18 20:59 02/01/18 20:54 Morphine Sulfate (Morphine Sulfate) 1 mg Q6H PRN IVP For Pain 02/01/18 10:15 02/08/18 10:14 02/01/18 11:16 Ondansetron HCl (Zofran) 4 mg Q6H PRN IVP Nausea & Vomiting 02/01/18 08:00 03/03/18 07:59 02/01/18 10:05 Pantoprazole (Protonix) 40 mg DAILY ORAL 02/02/18 09:00 03/04/18 08:59 Sodium Chloride 1,000 ml @ 125 mls/hr Q8H IVLG 02/01/18 08:48 03/03/18 08:47 02/01/18 17:35 Sucralfate (Carafate) 1 gm BID ORAL 02/01/18 18:00 03/03/18 17:59 02/01/18 17:52 Thiamine HCl (Vitamin B1) 100 mg DAILY ORAL 02/01/18 10:00 03/03/18 09:59 02/01/18 12:34 Mukesh Leggett M.D. Feb 01, 2018 22:40
--- NOTE | 2018-02-01 23:00 | Consultation ---
History of Present Illness General Date patient seen: Feb 01, 2018 Chief Complaint: Abdominal Pain Referring physician: MCCLELLAN Reason for Consultation: N/V Present Illness HPI late entry for patient seen around 11:00 am 77F with multiple medical comorbidities presented to ED with complaints of abdominal pain, nausea, emesis. states for 1-2 days prior to admission but feels may have been longer. persistent nausea and non bloody emesis. pain 10/ 10 epigastric pain radiating to back. no fever or chills. has had similar episodes prior. states no prior abdominal surgery but has lower midline scar. pain improved with narcotic pain medication. denies etoh use. surgery called to evaluate for abdominal pain / chronic pancreatitis. patient seen, chart reviewed, patient examined. CT reviewed. Allergies: Coded Allergies: No Known Allergies (Unverified , 10/15/12) Medication History Scheduled Aspirin* (Aspirin*), 81 MG NG DAILY Atenolol* (Tenormin*), 50 MG ORAL DAILY, (Reported) Atorvastatin Calcium* (Lipitor*), 40 MG ORAL BEDTIME Cyclosporine (Restasis), 1 DROP BOTH EYES EVERY 12 HOURS, (Reported) Dorzolamide Hcl/Timolol Maleat (Cosopt Eye Drops), 10 ML OP BID, (Reported) Folic Acid* (Folic Acid*), 1 MG ORAL DAILY Glimepiride* (Glimepiride*), 2 MG ORAL BEFORE BREAKFAST Ibuprofen* (Motrin*), 600 MG ORAL THREE TIMES A DAY Insulin Aspart (Novolog Flexpen), 5 UNITS SUBQ NOVOTIAC Insulin Aspart (Novolog Flexpen), 5 UNITS SUBQ NOVOTIAC Insulin Aspart (Novolog Flexpen), 0 UNITS SUBQ BEFORE MEALS AND HS Insulin Detemir (Levemir Flexpen), 15 UNITS SUBQ QHS Insulin Detemir (Levemir Flexpen), 8 UNITS SUBQ Q12HR Metformin Hcl* (Metformin Hcl*), 1,000 MG ORAL TWICE A DAY Metformin Hcl* (Glucophage*), 500 MG ORAL TIAC Mirtazapine (Mirtazapine), 15 MG ORAL BEDTIME, (Reported) Multivitamins* (Multivitamins*), 1 TAB ORAL DAILY Omeprazole (Omeprazole), 20 MG ORAL DAILY, (Reported) Thiamine Hcl (Vitamin B1*), 100 MG ORAL DAILY Scheduled PRN Hydrocodone/Acetaminophen 5-325* (Hydrocodone/Acetaminophen 5-325*), 1 TAB ORAL Q6H PRN for For Pain Miscellaneous Medications Unable to Obtain Medications (Unable To Obtain Meds), (Reported) Durable Medical Equipment Walker (Ultra-Light Rollator), 1 EACH , (DME) Patient History Limited by: medical condition History Provided By: Patient, Medical Record, PMD Healthcare decision maker Resuscitation status Full Code Advanced Directive on File No Past Medical/Surgical History Past Medical/Surgical History: (1) Near syncope (2) Mass of ampulla of Vater (3) Acute coronary (4) Left leg pain (5) Cellulitis (6) Hordeolum external (7) Hypoalbuminemia (8) Nausea & vomiting (9) Diarrhea (10) Nausea and vomiting (11) Acute coronary syndrome (12) Hyperkalemia (13) Chest pain (14) ACS (acute coronary syndrome) (15) DKA (diabetic ketoacidoses) (16) Gastroenteritis (17) Abdominal pain (18) HTN (hypertension) (19) Abnormal liver function test (20) HLD (hyperlipidemia) (21) LGI bleed (22) Acute alcoholic pancreatitis (23) Atypical chest pain (24) Hyponatremia (25) Hepatitis B (26) Hyperglycemia due to type 2 diabetes mellitus (27) HTN (hypertension) (28) DM2 (diabetes mellitus, type 2) (29) Umbilical hernia (30) Dehydration (31) Lactic acidosis (32) Hyperglycemia (33) Abdominal pain (34) Pancreatic duct dilated (35) Gastric ulcer (36) Alcohol abuse (37) Pancreatitis (38) H pylori ulcer (39) Common bile duct dilation (40) Abdominal pain (41) Intractable abdominal pain (42) Vomiting (43) REZA (acute kidney injury) (44) Hypokalemia (45) Hypovolemia due to dehydration (46) Viral gastroenteritis (47) Diabetes mellitus type 2, uncontrolled, with complications Review of Systems All Other Systems: negative except mentioned in HPI Physical Exam General Appearance: mild distress Lines, tubes and drains: peripheral HEENT: normocephalic Neck: normal inspection Respiratory/Chest: normal breath sounds Cardiovascular/Chest: normal peripheral pulses Abdomen: soft, no organomegaly, no mass, tender Extremities: normal inspection Skin Exam: normal pigmentation Neurologic: alert Last 24 Hour Vital Signs Date Time Temp Pulse Resp B/P (MAP) Pulse Ox O2 Delivery O2 Flow Rate FiO2 02/01/18 20:00 98.6 74 17 107/60 (76) 99 98.6 02/01/18 20:00 75 02/01/18 16:00 83 02/01/18 12:00 108 02/01/18 11:50 209.1 02/01/18 11:16 209.1 02/01/18 11:10 91 166/103 02/01/18 10:14 Room Air 02/01/18 10:11 166/103 02/01/18 09:41 209.1 91 20 171/108 100 Room Air 209.1 02/01/18 09:30 98.3 89 20 171/108 100 Room Air 209.1 02/01/18 08:16 209.1 89 20 183/88 100 Room Air 209.1 02/01/18 08:03 209.1 02/01/18 07:33 98.4 02/01/18 07:15 98.4 80 20 191/105 100 Room Air 98.4 02/01/18 05:51 98.4 02/01/18 05:21 98.4 02/01/18 05:12 98.4 88 14 191/105 99 Room Air 98.4 02/01/18 04:59 98.4 96 18 190/90 98 Room Air 98.4 Intake and Output 01/31/18 02/01/18 19:00 07:00 Output Total 150 ml Balance -150 ml Output Urine Total 150 ml Laboratory Tests Test 02/01/18 05:15 02/01/18 05:23 02/01/18 07:01 White Blood Count 5.2 K/UL (4.8-10.8) Red Blood Count 5.71 M/UL (4.20-5.40) H Hemoglobin 16.2 G/DL (12.0-16.0) H Hematocrit 48.8 % (37.0-47.0) H Mean Corpuscular Volume 85 FL (80-99) Mean Corpuscular Hemoglobin 28.5 PG (27.0-31.0) Mean Corpuscular Hemoglobin Concent 33.3 G/DL (32.0-36.0) Red Cell Distribution Width 11.0 % (11.6-14.8) L Platelet Count 274 K/UL (150-450) Mean Platelet Volume 6.3 FL (6.5-10.1) L Neutrophils (%) (Auto) 80.2 % (45.0-75.0) H Lymphocytes (%) (Auto) 15.6 % (20.0-45.0) L Monocytes (%) (Auto) 2.7 % (1.0-10.0) Eosinophils (%) (Auto) 0.2 % (0.0-3.0) Basophils (%) (Auto) 1.2 % (0.0-2.0) Prothrombin Time 10.2 SEC (9.30-11.50) Prothromb Time International Ratio 1.0 (0.9-1.1) Activated Partial Thromboplast Time 24 SEC (23-33) Sodium Level 132 MMOL/L (136-145) L Potassium Level 3.8 MMOL/L (3.5-5.1) Chloride Level 94 MMOL/L (98-107) L Carbon Dioxide Level 23 MMOL/L (21-32) Anion Gap 15 mmol/L (5-15) Blood Urea Nitrogen 17 mg/dL (7-18) Creatinine 1.1 MG/DL (0.55-1.30) Estimat Glomerular Filtration Rate mL/min (>60) Glucose Level 471 MG/DL (74-106) H Lactic Acid Level 2.20 mmol/L (0.4-2.0) H 1.10 mmol/L (0.66-2.22) Calcium Level 10.2 MG/DL (8.5-10.1) H Total Bilirubin 0.7 MG/DL (0.2-1.0) Aspartate Amino Transf (AST/SGOT) 23 U/L (15-37) Alanine Aminotransferase (ALT/SGPT) 31 U/L (12-78) Alkaline Phosphatase 122 U/L (46-116) H Troponin I 0.000 ng/mL (0.000-0.056) Total Protein 8.7 G/DL (6.4-8.2) H Albumin 3.8 G/DL (3.4-5.0) Globulin 4.9 g/dL Albumin/Globulin Ratio 0.8 (1.0-2.7) L Lipase 105 U/L (73-393) Serum Alcohol < 3 mg/dL Urine Color Pale yellow Urine Appearance Clear Urine pH 7 (4.5-8.0) Urine Specific [place] 1.010 (1.005-1.035) Urine Protein 4+ (NEGATIVE) H Urine Glucose (UA) 4+ (NEGATIVE) H Urine Ketones 3+ (NEGATIVE) H Urine Blood 5+ (NEGATIVE) H Urine Nitrite Negative (NEGATIVE) Urine Bilirubin Negative (NEGATIVE) Urine Urobilinogen Normal MG/DL (0.0-1.0) Urine Leukocyte Esterase Negative (NEGATIVE) Urine RBC Tntc /HPF (0 - 2) H Urine WBC 0-2 /HPF (0 - 2) Urine Squamous Epithelial Cells Few /LPF (NONE/OCC) Urine Bacteria Few /HPF (NONE) Microbiology Date/Time Source Procedure Growth Status 02/01/18 08:33 Rectum Received Height (Feet): 5 Height (Inches): 2.00 Weight (Pounds): 127 Medications Current Medications Medications (Trade) Dose Ordered Sig/Juan Route PRN Reason Start Time Stop Time Status Last Admin Dose Admin Acetaminophen (Tylenol) 650 mg Q4H PRN ORAL Mild Pain (Pain Scale 1-3) 02/01/18 08:00 03/03/18 07:59 02/01/18 20:54 Amylase/Lipase/ Protease (Pancrease) 2 ea THREE TIMES A DAY ORAL 02/01/18 13:00 03/03/18 12:59 02/01/18 17:53 Aspirin (Ecotrin) 81 mg DAILY ORAL 02/01/18 09:00 03/03/18 08:59 02/01/18 12:34 Atenolol (Tenormin) 50 mg DAILY ORAL 02/02/18 09:00 03/04/18 08:59 Atorvastatin Calcium (Lipitor) 40 mg QHS ORAL 02/01/18 21:00 03/03/18 20:59 02/01/18 20:54 Clonidine HCl (Catapres Tab) 0.1 mg Q6H PRN ORAL SBP > 160mmHg 02/01/18 08:30 03/03/18 08:29 02/01/18 10:11 Dextrose (Dextrose 50%) 25 ml STAT PRN IV Hypoglycemia 02/01/18 12:00 03/03/18 11:59 Dextrose (Dextrose 50%) 50 ml STAT PRN IV Hypoglycemia 02/01/18 12:00 03/03/18 11:59 Diphenhydramine HCl (Benadryl) 25 mg Q6H PRN ORAL Itching/Pruritis 02/01/18 08:00 03/03/18 07:59 Docusate Sodium (Colace) 100 mg EVERY 12 HOURS ORAL 02/01/18 09:00 03/03/18 08:59 02/01/18 12:33 Dorzolamide/ Timolol (Cosopt) 1 drop TWICE A DAY BOTH EYES 02/01/18 10:30 03/03/18 10:29 02/01/18 20:54 Enoxaparin Sodium (Lovenox) 40 mg Q24H SUBQ 02/01/18 09:00 03/03/18 08:59 02/01/18 12:35 Famotidine (Pepcid) 40 mg DAILY ORAL 02/01/18 09:00 03/03/18 08:59 02/01/18 12:33 Folic Acid (Folate) 1 mg DAILY ORAL 02/01/18 10:00 03/03/18 09:59 02/01/18 12:33 Insulin Aspart (NovoLOG) BEFORE MEALS AND HS SUBQ 02/01/18 11:30 03/03/18 11:29 02/01/18 17:34 Insulin Detemir (Levemir) 10 units BEDTIME SUBQ 02/01/18 21:00 03/03/18 20:59 02/01/18 20:56 Iopamidol (Isovue-300 100ml) 100 ml NOW PRN INJ Radiology Procedure 02/01/18 05:15 Mirtazapine (Remeron) 15 mg BEDTIME ORAL 02/01/18 21:00 03/03/18 20:59 02/01/18 20:54 Morphine Sulfate (Morphine Sulfate) 1 mg Q6H PRN IVP For Pain 02/01/18 10:15 02/08/18 10:14 02/01/18 11:16 Ondansetron HCl (Zofran) 4 mg Q6H PRN IVP Nausea & Vomiting 02/01/18 08:00 03/03/18 07:59 02/01/18 10:05 Pantoprazole (Protonix) 40 mg DAILY ORAL 02/02/18 09:00 03/04/18 08:59 Sodium Chloride 1,000 ml @ 125 mls/hr Q8H IVLG 8/23/18 08:48 03/03/18 08:47 02/01/18 17:35 Sucralfate (Carafate) 1 gm BID ORAL 02/01/18 18:00 03/03/18 17:59 02/01/18 17:52 Thiamine HCl (Vitamin B1) 100 mg DAILY ORAL 02/01/18 10:00 03/03/18 09:59 02/01/18 12:34 Assessment/Plan Problem List: (1) Abdominal pain Assessment & Plan: chronic pancreatitis. etiology unknown. denies heavy etoh use. CT reviewed an atrophic pancreas noted with dilated ducts. no masses noted. no acute surgical intervention indicated symptomatic treatment fluid resuscitation will follow with recs. thank you ICD Codes: R10.9 - Unspecified abdominal pain SNOMED: 44210293 Qualifiers: Qualified Codes: R10.13 - Epigastric pain (2) Pancreatitis ICD Codes: K85.9 - Acute pancreatitis, unspecified SNOMED: [id number] Status: stable Ricki Gómez Feb 01, 2018 23:00
--- NOTE | 2018-02-01 23:13 | Consultation ---
History of Present Illness General Date patient seen: Feb 01, 2018 Time patient seen: 23:03 Chief Complaint: Abdominal Pain Referring physician: MCCLELLAN Reason for Consultation: N/V Present Illness HPI 77 year old female complain of abdominal pain, weakness, reduce PO intake. Allergies: Coded Allergies: No Known Allergies (Unverified , 10/15/12) Medication History Scheduled Aspirin* (Aspirin*), 81 MG NG DAILY Atenolol* (Tenormin*), 50 MG ORAL DAILY, (Reported) Atorvastatin Calcium* (Lipitor*), 40 MG ORAL BEDTIME Cyclosporine (Restasis), 1 DROP BOTH EYES EVERY 12 HOURS, (Reported) Dorzolamide Hcl/Timolol Maleat (Cosopt Eye Drops), 10 ML OP BID, (Reported) Folic Acid* (Folic Acid*), 1 MG ORAL DAILY Glimepiride* (Glimepiride*), 2 MG ORAL BEFORE BREAKFAST Ibuprofen* (Motrin*), 600 MG ORAL THREE TIMES A DAY Insulin Aspart (Novolog Flexpen), 5 UNITS SUBQ NOVOTIAC Insulin Aspart (Novolog Flexpen), 5 UNITS SUBQ NOVOTIAC Insulin Aspart (Novolog Flexpen), 0 UNITS SUBQ BEFORE MEALS AND HS Insulin Detemir (Levemir Flexpen), 15 UNITS SUBQ QHS Insulin Detemir (Levemir Flexpen), 8 UNITS SUBQ Q12HR Metformin Hcl* (Metformin Hcl*), 1,000 MG ORAL TWICE A DAY Metformin Hcl* (Glucophage*), 500 MG ORAL TIAC Mirtazapine (Mirtazapine), 15 MG ORAL BEDTIME, (Reported) Multivitamins* (Multivitamins*), 1 TAB ORAL DAILY Omeprazole (Omeprazole), 20 MG ORAL DAILY, (Reported) Thiamine Hcl (Vitamin B1*), 100 MG ORAL DAILY Scheduled PRN Hydrocodone/Acetaminophen 5-325* (Hydrocodone/Acetaminophen 5-325*), 1 TAB ORAL Q6H PRN for For Pain Miscellaneous Medications Unable to Obtain Medications (Unable To Obtain Meds), (Reported) Durable Medical Equipment Walker (Ultra-Light Rollator), 1 EACH , (DME) Patient History Healthcare decision maker Resuscitation status Full Code Advanced Directive on File No Review of Systems Constitutional: Reports: no symptoms Eye: Reports: no symptoms ENT: Reports: no symptoms Respiratory: Reports: no symptoms Cardiovascular: Reports: no symptoms Gastrointestinal: Reports: abdominal pain, nausea Genitourinary: Reports: no symptoms Musculoskeletal: Reports: no symptoms Skin: Reports: no symptoms Psychiatric: Reports: no symptoms Neurological: Reports: no symptoms Endocrine: Reports: no symptoms Hematologic/Lymphatic: Reports: no symptoms Physical Exam General Appearance: no apparent distress, alert Lines, tubes and drains: peripheral HEENT: normocephalic, atraumatic, PERRL Neck: normal alignment, supple, normal inspection Respiratory/Chest: chest wall non-tender, lungs clear Cardiovascular/Chest: normal peripheral pulses, normal rate, regular rhythm, regularly irregular Abdomen: normal bowel sounds, non tender, soft Genitourinary/Rectal: normal genital exam Extremities: normal range of motion, non-tender, normal inspection Skin Exam: normal pigmentation, warm/dry 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, abnormal gait Last 24 Hour Vital Signs Date Time Temp Pulse Resp B/P (MAP) Pulse Ox O2 Delivery O2 Flow Rate FiO2 02/01/18 20:00 98.6 74 17 107/60 (76) 99 98.6 02/01/18 20:00 75 02/01/18 16:00 83 02/01/18 12:00 108 02/01/18 11:50 209.1 02/01/18 11:16 209.1 02/01/18 11:10 91 166/103 02/01/18 10:14 Room Air 02/01/18 10:11 166/103 02/01/18 09:41 209.1 91 20 171/108 100 Room Air 209.1 02/01/18 09:30 98.3 89 20 171/108 100 Room Air 209.1 02/01/18 08:16 209.1 89 20 183/88 100 Room Air 209.1 02/01/18 08:03 209.1 02/01/18 07:33 98.4 02/01/18 07:15 98.4 80 20 191/105 100 Room Air 98.4 02/01/18 05:51 98.4 02/01/18 05:21 98.4 02/01/18 05:12 98.4 88 14 191/105 99 Room Air 98.4 02/01/18 04:59 98.4 96 18 190/90 98 Room Air 98.4 Intake and Output 01/31/18 02/01/18 19:00 07:00 Output Total 150 ml Balance -150 ml Output Urine Total 150 ml Laboratory Tests Test 02/01/18 05:15 02/01/18 05:23 02/01/18 07:01 White Blood Count 5.2 K/UL (4.8-10.8) Red Blood Count 5.71 M/UL (4.20-5.40) H Hemoglobin 16.2 G/DL (12.0-16.0) H Hematocrit 48.8 % (37.0-47.0) H Mean Corpuscular Volume 85 FL (80-99) Mean Corpuscular Hemoglobin 28.5 PG (27.0-31.0) Mean Corpuscular Hemoglobin Concent 33.3 G/DL (32.0-36.0) Red Cell Distribution Width 11.0 % (11.6-14.8) L Platelet Count 274 K/UL (150-450) Mean Platelet Volume 6.3 FL (6.5-10.1) L Neutrophils (%) (Auto) 80.2 % (45.0-75.0) H Lymphocytes (%) (Auto) 15.6 % (20.0-45.0) L Monocytes (%) (Auto) 2.7 % (1.0-10.0) Eosinophils (%) (Auto) 0.2 % (0.0-3.0) Basophils (%) (Auto) 1.2 % (0.0-2.0) Prothrombin Time 10.2 SEC (9.30-11.50) Prothromb Time International Ratio 1.0 (0.9-1.1) Activated Partial Thromboplast Time 24 SEC (23-33) Sodium Level 132 MMOL/L (136-145) L Potassium Level 3.8 MMOL/L (3.5-5.1) Chloride Level 94 MMOL/L (98-107) L Carbon Dioxide Level 23 MMOL/L (21-32) Anion Gap 15 mmol/L (5-15) Blood Urea Nitrogen 17 mg/dL (7-18) Creatinine 1.1 MG/DL (0.55-1.30) Estimat Glomerular Filtration Rate mL/min (>60) Glucose Level 471 MG/DL (74-106) H Lactic Acid Level 2.20 mmol/L (0.4-2.0) H 1.10 mmol/L (0.66-2.22) Calcium Level 10.2 MG/DL (8.5-10.1) H Total Bilirubin 0.7 MG/DL (0.2-1.0) Aspartate Amino Transf (AST/SGOT) 23 U/L (15-37) Alanine Aminotransferase (ALT/SGPT) 31 U/L (12-78) Alkaline Phosphatase 122 U/L (46-116) H Troponin I 0.000 ng/mL (0.000-0.056) Total Protein 8.7 G/DL (6.4-8.2) H Albumin 3.8 G/DL (3.4-5.0) Globulin 4.9 g/dL Albumin/Globulin Ratio 0.8 (1.0-2.7) L Lipase 105 U/L (73-393) Serum Alcohol < 3 mg/dL Urine Color Pale yellow Urine Appearance Clear Urine pH 7 (4.5-8.0) Urine Specific Wing 1.010 (1.005-1.035) Urine Protein 4+ (NEGATIVE) H Urine Glucose (UA) 4+ (NEGATIVE) H Urine Ketones 3+ (NEGATIVE) H Urine Blood 5+ (NEGATIVE) H Urine Nitrite Negative (NEGATIVE) Urine Bilirubin Negative (NEGATIVE) Urine Urobilinogen Normal MG/DL (0.0-1.0) Urine Leukocyte Esterase Negative (NEGATIVE) Urine RBC Tntc /HPF (0 - 2) H Urine WBC 0-2 /HPF (0 - 2) Urine Squamous Epithelial Cells Few /LPF (NONE/OCC) Urine Bacteria Few /HPF (NONE) Microbiology Date/Time Source Procedure Growth Status 02/01/18 08:33 Rectum Received Height (Feet): 5 Height (Inches): 2.00 Weight (Pounds): 127 Medications Current Medications Medications (Trade) Dose Ordered Sig/Juan Route PRN Reason Start Time Stop Time Status Last Admin Dose Admin Acetaminophen (Tylenol) 650 mg Q4H PRN ORAL Mild Pain (Pain Scale 1-3) 02/01/18 08:00 03/03/18 07:59 02/01/18 20:54 Amylase/Lipase/ Protease (Pancrease) 2 ea THREE TIMES A DAY ORAL 02/01/18 13:00 03/03/18 12:59 02/01/18 17:53 Aspirin (Ecotrin) 81 mg DAILY ORAL 02/01/18 09:00 03/03/18 08:59 02/01/18 12:34 Atenolol (Tenormin) 50 mg DAILY ORAL 02/02/18 09:00 03/04/18 08:59 Atorvastatin Calcium (Lipitor) 40 mg QHS ORAL 02/01/18 21:00 03/03/18 20:59 02/01/18 20:54 Clonidine HCl (Catapres Tab) 0.1 mg Q6H PRN ORAL SBP > 160mmHg 02/01/18 08:30 03/03/18 08:29 02/01/18 10:11 Dextrose (Dextrose 50%) 25 ml STAT PRN IV Hypoglycemia 02/01/18 12:00 03/03/18 11:59 Dextrose (Dextrose 50%) 50 ml STAT PRN IV Hypoglycemia 02/01/18 12:00 03/03/18 11:59 Diphenhydramine HCl (Benadryl) 25 mg Q6H PRN ORAL Itching/Pruritis 02/01/18 08:00 03/03/18 07:59 Docusate Sodium (Colace) 100 mg EVERY 12 HOURS ORAL 02/01/18 09:00 03/03/18 08:59 02/01/18 12:33 Dorzolamide/ Timolol (Cosopt) 1 drop TWICE A DAY BOTH EYES 02/01/18 10:30 03/03/18 10:29 02/01/18 20:54 Enoxaparin Sodium (Lovenox) 40 mg Q24H SUBQ 02/01/18 09:00 03/03/18 08:59 02/01/18 12:35 Famotidine (Pepcid) 40 mg DAILY ORAL 02/01/18 09:00 03/03/18 08:59 02/01/18 12:33 Folic Acid (Folate) 1 mg DAILY ORAL 02/01/18 10:00 03/03/18 09:59 02/01/18 12:33 Insulin Aspart (NovoLOG) BEFORE MEALS AND HS SUBQ 02/01/18 11:30 03/03/18 11:29 02/01/18 17:34 Insulin Detemir (Levemir) 10 units BEDTIME SUBQ 02/01/18 21:00 03/03/18 20:59 02/01/18 20:56 Iopamidol (Isovue-300 100ml) 100 ml NOW PRN INJ Radiology Procedure 02/01/18 05:15 Mirtazapine (Remeron) 15 mg BEDTIME ORAL 02/01/18 21:00 03/03/18 20:59 02/01/18 20:54 Morphine Sulfate (Morphine Sulfate) 1 mg Q6H PRN IVP For Pain 02/01/18 10:15 02/08/18 10:14 02/01/18 11:16 Ondansetron HCl (Zofran) 4 mg Q6H PRN IVP Nausea & Vomiting 02/01/18 08:00 03/03/18 07:59 02/01/18 10:05 Pantoprazole (Protonix) 40 mg DAILY ORAL 02/02/18 09:00 03/04/18 08:59 Sodium Chloride 1,000 ml @ 125 mls/hr Q8H IVLG 02/01/18 08:48 03/03/18 08:47 02/01/18 17:35 Sucralfate (Carafate) 1 gm BID ORAL 02/01/18 18:00 03/03/18 17:59 02/01/18 17:52 Thiamine HCl (Vitamin B1) 100 mg DAILY ORAL 02/01/18 10:00 03/03/18 09:59 02/01/18 12:34 Assessment/Plan Status: stable Assessment/Plan ASSESSMENT (1) H pylori ulcer (2) Vomiting (3) Intractable abdominal pain (4) Diabetes mellitus type 2, uncontrolled, with complications (5) Chronic Pancreatitis (6) Alcohol abuse (7) Gastric ulcer (8) Common bile duct dilation (9) TACHYCARDIA - resolved (10) Hypertension (11) Hyperlipidemia PLAN -IV fluids -EGD -Tachycardia resolved, no indication for further treatment, likely etiology dehydration/hemoconcentration -Continue atenolol -Continue atorvastatin -Outpatient stress test -BID PPI -Alcohol cessation Mukesh Leggett M.D. Feb 01, 2018 23:13
[2018-02-02] VITALS (11 sets, daily range): BP systolic 97–173; BP diastolic 56–93
[2018-02-02] MEDS: Morphine Sulfate 2mg/ml Inj(IV/IM USE ONLY) IVP PRN (00:55)
[2018-02-02] MEDS: NovoLOG Insulin Flexpen SUBQ SCH ×4 (05:48→20:17)
[2018-02-02 06:23] LABS: BASOPHILS % (AUTO) 0.8 % (0.0-2.0); HEMATOCRIT 39.1 % (37.0-47.0); HEMOGLOBIN 13.2 G/DL (12.0-16.0); LYMPHOCYTES % (AUTO) 34.3 % (20.0-45.0); MEAN CORPUSCULAR VOLUME 84 FL (80-99); MONOCYTES % (AUTO) 8.5 % (1.0-10.0); NEUTROPHILS % (AUTO) 55.5 % (45.0-75.0); PLATELET COUNT 261 K/UL (150-450); RED BLOOD COUNT 4.65 M/UL (4.20-5.40); RED CELL DISTRIBUTION WIDTH 11.1 % (11.6-14.8); WHITE BLOOD COUNT 5.3 K/UL (4.8-10.8)
[2018-02-02 07:21] LABS: ALANINE AMINOTRANSFERASE 22 U/L (12-78); ALBUMIN 2.5 G/DL (3.4-5.0); ALBUMIN/GLOBULIN RATIO 0.7 (1.0-2.7); ALKALINE PHOSPHATASE 86 U/L (46-116); AMYLASE 23 U/L (25-115); ANION GAP 11 mmol/L (5-15); ASPARTATE AMINO TRANSFERASE 14 U/L (15-37); BILIRUBIN,TOTAL 0.5 MG/DL (0.2-1.0); BLOOD UREA NITROGEN 20 mg/dL (7-18); CALCIUM 8.6 MG/DL (8.5-10.1); CARBON DIOXIDE 23 MMOL/L (21-32); CHLORIDE 104 MMOL/L (98-107); CREATININE 1.1 MG/DL (0.55-1.30); GAMMA GLUTAMYL TRANSPEPTIDASE 23 U/L (5-85); POTASSIUM 3.4 MMOL/L (3.5-5.1); SODIUM 138 MMOL/L (136-145)
--- NOTE | 2018-02-02 08:16 | Nephrology Progress Note ---
Assessment/Plan Assessment/Plan A/P 1_ ABD Pain- with N/V no diarrhea -EGD today - appreciate Gen Surg and GI - DC patient odalys if patient improved pending EGD results 2. HTN- variable. On IVFs 3. DM- on ISS and levemir - much improved 4. DVT prophylaxsis- lovenox Subjective Date patient seen: Feb 02, 2018 Time patient seen: 08:01 ROS Limited/Unobtainable: No Gastrointestinal/Abdominal: Reports: abdominal pain Allergies: Coded Allergies: No Known Allergies (Unverified , 10/15/12) All Systems: reviewed and negative except above Subjective Patient feeling better. N/V resolving and abd pain improved Objective Last 24 Hour Vital Signs Date Time Temp Pulse Resp B/P (MAP) Pulse Ox O2 Delivery O2 Flow Rate FiO2 02/02/18 04:00 72 02/02/18 04:00 98.1 81 18 98/65 (76) 97 98.1 02/02/18 00:56 171/92 02/02/18 00:00 99.0 80 19 171/92 (118) 97 99.0 02/02/18 00:00 85 02/01/18 21:00 Room Air 02/01/18 20:00 98.6 74 17 107/60 (76) 99 98.6 02/01/18 20:00 75 02/01/18 16:00 83 02/01/18 12:00 108 02/01/18 11:50 209.1 02/01/18 11:16 209.1 02/01/18 11:10 91 166/103 02/01/18 10:14 Room Air 02/01/18 10:11 166/103 02/01/18 09:41 209.1 91 20 171/108 100 Room Air 209.1 02/01/18 09:30 98.3 89 20 171/108 100 Room Air 209.1 02/01/18 08:16 209.1 89 20 183/88 100 Room Air 209.1 02/01/18 08:03 209.1 Intake and Output 02/01/18 02/02/18 19:00 07:00 Intake Total 2125 ml 1373 ml Balance 2125 ml 1373 ml Intake Oral 200 ml 240 ml IV Total 1925 ml 1133 ml # Voids 2 2 Laboratory Tests 02/02/18 04:55: White Blood Count 5.3, Red Blood Count 4.65, Hemoglobin 13.2, Hematocrit 39.1, Mean Corpuscular Volume 84, Mean Corpuscular Hemoglobin 28.3, Mean Corpuscular Hemoglobin Concent 33.7, Red Cell Distribution Width 11.1L, Platelet Count 261, Mean Platelet Volume 6.4L, Neutrophils (%) (Auto) 55.5, Lymphocytes (%) (Auto) 34.3, Monocytes (%) (Auto) 8.5, Eosinophils (%) (Auto) 1.0, Basophils (%) (Auto ) 0.8, Prothrombin Time 11.0, Prothromb Time International Ratio 1.0, Activated Partial Thromboplast Time 26, Sodium Level 138, Potassium Level 3.4L, Chloride Level 104, Carbon Dioxide Level 23, Anion Gap 11, Blood Urea Nitrogen 20H, Creatinine 1.1, Estimat Glomerular Filtration Rate , Glucose Level 191#H, Calcium Level 8.6, Total Bilirubin 0.5, Gamma Glutamyl Transpeptidase 23, Aspartate Amino Transf (AST/SGOT) 14L, Alanine Aminotransferase (ALT/SGPT) 22, Alkaline Phosphatase 86, Total Protein 6.3L, Albumin 2.5L, Globulin 3.8, Albumin /Globulin Ratio 0.7L, Amylase Level 23L, Lipase 64L Height (Feet): 5 Height (Inches): 2.00 Weight (Pounds): 127 General Appearance: WD/WN, no apparent distress EENT: PERRL/EOMI Neck: non-tender, normal alignment Cardiovascular: normal rate, regular rhythm Respiratory/Chest: lungs clear, normal breath sounds Abdomen: non tender, soft Edema: no edema noted Arm (L), no edema noted Arm (R), no edema noted Leg (L), no edema noted Leg (R), no edema noted Pedal (L), no edema noted Pedal (R), no edema noted Generalized Maynor Weathers M.D. Feb 02, 2018 08:16
[2018-02-02] MEDS: Sucralfate 1gm tab ORAL SCH ×2 (08:43→18:06)
[2018-02-02] MEDS: Docusate 100mg cap ORAL SCH ×2 (08:43→20:13)
[2018-02-02] MEDS: Thiamine 100mg tab ORAL SCH (08:43)
[2018-02-02] MEDS: Pancrease Cap ORAL SCH ×3 (08:44→18:07)
[2018-02-02] MEDS: Aspirin EC 81mg tab ORAL SCH (08:45)
[2018-02-02] MEDS: Cosopt Opth Soln 10 mL Btl BOTH EYES SCH ×2 (08:46→18:06)
[2018-02-02] MEDS: Enoxaparin 40mg Inj SUBQ SCH (08:52)
--- NOTE | 2018-02-02 10:11 | Anethesia Preoperative Eval ---
Anesthesia Pre-op PMH/ROS General Date of Evaluation: Feb 02, 2018 Time of Evaluation: 10:10 Anesthesiologist: Shey Stauffer ASA Score: ASA 3 Mallampati Score Class I : Soft palate, uvula, fauces, pillars visible Class II: Soft palate, uvula, fauces visible Class III: Soft palate, base of uvula visible Class IV: Only hard plate visible Mallampati Classification: Class I Surgeon: Tania Diagnosis: dehydration, lactic acidosis Surgical Procedure: Diagnostic EGD Anesthesia History: none - No prior anesthetic complications Social History: alcohol use - alcohol induced pancreatitis Family History: no anesthesia problems Allergies: Coded Allergies: No Known Allergies (Unverified , 10/15/12) Medications: see eMAR Past Medical History Cardiovascular: Reports: HTN, CAD Gastrointestinal/Genitourinary: Reports: other - alcohol pancreatitis Endocrine: Reports: DM, other - History of DKA Musculoskeletal/Integumentary: Reports: OA PMH Narrative: admit 02/01/18 for abdominal pain, N/V diarrhea, scheduled for EGD Anesthesia Pre-op Phys. Exam Physician Exam Last Vital Signs Date Time Temp Pulse Resp B/P (MAP) Pulse Ox O2 Delivery O2 Flow Rate FiO2 02/02/18 09:00 Room Air 02/02/18 08:44 71 152/82 02/02/18 08:00 97.0 16 99 97.0 Constitutional: NAD Neurologic: CN 2-12 intact Cardiovascular: RRR Respiratory: CTA Gastrointestinal: S/NT/ND Airway Exam Mallampati Score: Class I MO: full ROM: full Teeth: missing Dentures: upper, lower - partials Anesthesia Pre-op A/P Labs Hematology Test 02/02/18 04:55 White Blood Count 5.3 K/UL (4.8-10.8) Red Blood Count 4.65 M/UL (4.20-5.40) Hemoglobin 13.2 G/DL (12.0-16.0) Hematocrit 39.1 % (37.0-47.0) Mean Corpuscular Volume 84 FL (80-99) Mean Corpuscular Hemoglobin 28.3 PG (27.0-31.0) Mean Corpuscular Hemoglobin Concent 33.7 G/DL (32.0-36.0) Red Cell Distribution Width 11.1 % (11.6-14.8) L Platelet Count 261 K/UL (150-450) Mean Platelet Volume 6.4 FL (6.5-10.1) L Neutrophils (%) (Auto) 55.5 % (45.0-75.0) Lymphocytes (%) (Auto) 34.3 % (20.0-45.0) Monocytes (%) (Auto) 8.5 % (1.0-10.0) Eosinophils (%) (Auto) 1.0 % (0.0-3.0) Basophils (%) (Auto) 0.8 % (0.0-2.0) Coagulation Test 02/02/18 04:55 Prothrombin Time 11.0 SEC (9.30-11.50) Prothromb Time International Ratio 1.0 (0.9-1.1) Activated Partial Thromboplast Time 26 SEC (23-33) Chemistry Test 02/02/18 04:55 Sodium Level 138 MMOL/L (136-145) Potassium Level 3.4 MMOL/L (3.5-5.1) L Chloride Level 104 MMOL/L (98-107) Carbon Dioxide Level 23 MMOL/L (21-32) Anion Gap 11 mmol/L (5-15) Blood Urea Nitrogen 20 mg/dL (7-18) H Creatinine 1.1 MG/DL (0.55-1.30) Estimat Glomerular Filtration Rate mL/min (>60) Glucose Level 191 MG/DL (74-106) #H Calcium Level 8.6 MG/DL (8.5-10.1) Total Bilirubin 0.5 MG/DL (0.2-1.0) Gamma Glutamyl Transpeptidase 23 U/L (5-85) Aspartate Amino Transf (AST/SGOT) 14 U/L (15-37) L Alanine Aminotransferase (ALT/SGPT) 22 U/L (12-78) Alkaline Phosphatase 86 U/L (46-116) Total Protein 6.3 G/DL (6.4-8.2) L Albumin 2.5 G/DL (3.4-5.0) L Globulin 3.8 g/dL Albumin/Globulin Ratio 0.7 (1.0-2.7) L Amylase Level 23 U/L (25-115) L Lipase 64 U/L (73-393) L Studies Pre-op Studies: EKG - SR with occassional PACs Risk Assessment & Plan Assessment: Hx of DM, CAD, HTN, alcohol abuse, pancreatitis Plan: MAC Status Change Before Surgery: Sherrill Mccracken CRNA Feb 02, 2018 10:11
--- NOTE | 2018-02-02 10:27 | Pre-Procedure Note/Attestation ---
Pre-Procedure Note/Attestation Complete Prior to Procedure Planned Procedure: not applicable Procedure Narrative: egd Indications for Procedure Pre-Operative Diagnosis: Attestation I attest that I discussed the nature of the procedure; its benefits; risks and complications; and alternatives (and the risks and benefits of such alternatives ), prior to the procedure, with the patient (or the patient's legal customer response representative). I attest that, if there was a reasonable possibility of needing a blood transfusion, the patient (or the patient's legal customer response representative) was given the [facility] standardized written summary, pursuant to the [place] Blood Safety Act ([place] Health and Safety Code # 1645, as amended). I attest that I re-evaluated the patient just prior to the surgery and that there has been no change in the patient's H&P, except as documented below: Alexandro Marin MD Feb 02, 2018 10:27
[2018-02-02] MEDS ORDERED: Lidocaine 1% MPF 10mg/ml 5ml ONE (10:30)
[2018-02-02] MEDS ORDERED: Propofol 200mg/20ml IV ONE (10:30)
[2018-02-02] MEDS ORDERED: LR 1000ml ONE (10:30)
[2018-02-02] MEDS ORDERED: LR 1000ml IVLG ONE (10:35)
--- NOTE | 2018-02-02 10:43 | Endoscopy Procedure Note ---
Endoscopy Procedure Note General Indication for Procedure: pud Procedures Performed: EGD Operative Findings/Diagnosis: gastritis Specimen: yes Pt Tolerated Procedure Well: Yes Estimated Blood Loss: none Anesthesia Anesthesiologist: see chart Anesthesia: MAC Inserted Devices Implant(s) used?: No GI Core Measures 50 yrs or older w/o bx or poly: Not Applicable 10yrs. F/U not recommended: Not Applicable Alexandro Marin MD Feb 02, 2018 10:43
--- NOTE | 2018-02-02 11:02 | Immediate Post-Op Evaluation ---
Immediate Post-Op Evalulation Immediate Post-Op Evalulation Procedure: Diagnostic EGD Date of Evaluation: Feb 02, 2018 Time of Evaluation: 10:50 IV Fluids: LR 200 ml Blood Pressure Systolic: 142 Blood Pressure Diastolic: 75 Pulse Rate: 73 Respiratory Rate: 16 O2 Sat by Pulse Oximetry: 100 Temperature (Fahrenheit): 98.4 Pain Score (1-10): 0 Nausea: No Vomiting: No Complications none Patient Status: awake, reacts, patent Hydration Status: adequate Sherrill Stauffer CRNA Feb 02, 2018 11:02
--- NOTE | 2018-02-02 11:34 | Diagnostic Imaging Report ---
Indication: Reason For Exam: ABD PAIN Technique: Deleon-scale and duplex images of the upper abdomen were obtained Comparison: 02/19/2016, also CT scan 02/01/2018 Findings: Gallbladder is unremarkable, without stones, wall thickening, nor pericholecystic fluid. Sonographic Kaufman's sign is negative. Common bile duct measures 6 mm in diameter. No intrahepatic biliary ductal dilatation. Previously reported pneumobilia is not evident. Liver demonstrates normal echogenicity, no focal abnormality. Portal vein and hepatic veins are patent. The pancreas contains multiple calcifications, also demonstrated previously Spleen is unremarkable. Left kidney measures on 0.5 cm in length. Right kidney measures 10.7 cm length. Both kidneys demonstrate normal echogenicity. There is no hydronephrosis. There are bilateral small renal cysts . Non-aneurysmal abdominal aorta . Impression: Negative for gallstones or dilated ducts Upper limits of normal caliber, bile ducts, also reported on earlier studies, probably baseline for this patient. Correlation with liver function tests is recommended. Ectatic calcifications, consistent with chronic calcifying pancreatitis, also previously reported Incidental finding small bilateral renal cysts
--- NOTE | 2018-02-02 12:53 | Cardiology Progress Note ---
Assessment/Plan Status: stable Assessment/Plan ASSESSMENT (1) H pylori ulcer (2) Vomiting (3) Intractable abdominal pain (4) Diabetes mellitus type 2, uncontrolled, with complications (5) Chronic Pancreatitis (6) Alcohol abuse (7) Gastric ulcer (8) Common bile duct dilation (9) TACHYCARDIA - resolved (10) Hypertension (11) Hyperlipidemia PLAN -IV fluids -EGD today -Tachycardia resolved, no indication for further treatment, likely etiology dehydration/hemoconcentration -d/c atenolol -start norvasc 10 mg and lisinopril 20 mg for hypertension -Continue atorvastatin -Outpatient stress test -BID PPI -Alcohol cessation -Dispo planning pending EEG results Subjective Cardiovascular: Reports: no symptoms Respiratory: Reports: no symptoms Gastrointestinal/Abdominal: Reports: no symptoms Genitourinary: Reports: no symptoms Subjective No acute events, bradycardia resolved, BP elevated, for EGD today Objective Last 24 Hour Vital Signs Date Time Temp Pulse Resp B/P (MAP) Pulse Ox O2 Delivery O2 Flow Rate FiO2 02/02/18 11:15 97.8 76 17 173/93 100 Room Air 97.8 02/02/18 11:05 76 16 158/88 100 Room Air 02/02/18 11:02 209.1 73 16 100 02/02/18 10:55 70 15 156/81 99 Room Air 02/02/18 10:50 69 17 151/68 100 Room Air 02/02/18 10:45 98.4 73 16 142/75 100 Nasal Cannula 3 98.4 02/02/18 09:00 Room Air 02/02/18 08:44 71 152/82 02/02/18 08:00 97.0 71 16 152/82 (105) 99 97.0 02/02/18 07:56 66 02/02/18 04:00 72 02/02/18 04:00 98.1 81 18 98/65 (76) 97 98.1 02/02/18 00:56 171/92 02/02/18 00:00 99.0 80 19 171/92 (118) 97 99.0 02/02/18 00:00 85 02/01/18 21:00 Room Air 02/01/18 20:00 98.6 74 17 107/60 (76) 99 98.6 02/01/18 20:00 75 02/01/18 16:00 83 General Appearance: no apparent distress, alert Neck: non-tender, normal alignment Rhythm: NSR Cardiovascular: normal peripheral pulses, normal rate, regular rhythm Respiratory/Chest: chest wall non-tender, lungs clear, normal breath sounds Abdomen: normal bowel sounds, non tender Extremities: normal range of motion, non-tender 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 grossly normal, no motor/sensory deficits Intake and Output 02/01/18 02/02/18 19:00 07:00 Intake Total 2125 ml 1373 ml Balance 2125 ml 1373 ml Intake Oral 200 ml 240 ml IV Total 1925 ml 1133 ml # Voids 2 2 Laboratory Tests Test 02/02/18 04:55 White Blood Count 5.3 K/UL (4.8-10.8) Red Blood Count 4.65 M/UL (4.20-5.40) Hemoglobin 13.2 G/DL (12.0-16.0) Hematocrit 39.1 % (37.0-47.0) Mean Corpuscular Volume 84 FL (80-99) Mean Corpuscular Hemoglobin 28.3 PG (27.0-31.0) Mean Corpuscular Hemoglobin Concent 33.7 G/DL (32.0-36.0) Red Cell Distribution Width 11.1 % (11.6-14.8) L Platelet Count 261 K/UL (150-450) Mean Platelet Volume 6.4 FL (6.5-10.1) L Neutrophils (%) (Auto) 55.5 % (45.0-75.0) Lymphocytes (%) (Auto) 34.3 % (20.0-45.0) Monocytes (%) (Auto) 8.5 % (1.0-10.0) Eosinophils (%) (Auto) 1.0 % (0.0-3.0) Basophils (%) (Auto) 0.8 % (0.0-2.0) Prothrombin Time 11.0 SEC (9.30-11.50) Prothromb Time International Ratio 1.0 (0.9-1.1) Activated Partial Thromboplast Time 26 SEC (23-33) Sodium Level 138 MMOL/L (136-145) Potassium Level 3.4 MMOL/L (3.5-5.1) L Chloride Level 104 MMOL/L (98-107) Carbon Dioxide Level 23 MMOL/L (21-32) Anion Gap 11 mmol/L (5-15) Blood Urea Nitrogen 20 mg/dL (7-18) H Creatinine 1.1 MG/DL (0.55-1.30) Estimat Glomerular Filtration Rate mL/min (>60) Glucose Level 191 MG/DL (74-106) #H Calcium Level 8.6 MG/DL (8.5-10.1) Total Bilirubin 0.5 MG/DL (0.2-1.0) Gamma Glutamyl Transpeptidase 23 U/L (5-85) Aspartate Amino Transf (AST/SGOT) 14 U/L (15-37) L Alanine Aminotransferase (ALT/SGPT) 22 U/L (12-78) Alkaline Phosphatase 86 U/L (46-116) Total Protein 6.3 G/DL (6.4-8.2) L Albumin 2.5 G/DL (3.4-5.0) L Globulin 3.8 g/dL Albumin/Globulin Ratio 0.7 (1.0-2.7) L Amylase Level 23 U/L (25-115) L Lipase 64 U/L (73-393) L Microbiology Date/Time Source Procedure Growth Status 02/01/18 05:14 Blood Blood Culture - Preliminary NO GROWTH AFTER 24 HOURS Resulted 02/01/18 05:00 Blood Blood Culture - Preliminary NO GROWTH AFTER 24 HOURS Resulted 02/01/18 08:33 Rectum - Preliminary Resulted 02/01/18 08:33 Rectum Received Mukesh Leggett M.D. Feb 02, 2018 12:53
[2018-02-02] MEDS ORDERED: Lisinopril 20mg tab ORAL SCH (12:54)
--- NOTE | 2018-02-02 19:00 | Procedure Note ---
DATE OF PROCEDURE: 02/02/2018 SURGEON: Alexandro Marin M.D. ANESTHESIOLOGIST: Xiomy MARS. PROCEDURE: Upper endoscopy with biopsy. ANESTHESIA: Per Xiomy MARS. INSTRUMENT: Olympus adult flexible upper endoscope. INDICATION: History of peptic ulcer disease, abdominal pain, vomiting. The procedure, risks, benefits, and possible consequences, including hemorrhage, aspiration, perforation and infection, and alternative treatments, were explained to the patient/legal guardian by Dr. Alexandro Marin and the patient/legal guardian understood and accepted these risks. DESCRIPTION OF PROCEDURE: After informed consent was obtained and the patient was adequately sedated, Olympus upper endoscope was advanced from the mouth into the second portion of the duodenum and retroflexion was performed in the stomach. 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 The patient had evidence of diffuse gastritis. Random biopsy from antrum was obtained to rule out H. pylori infection. There was no evidence of any active upper GI bleeding at this time. No obvious ulcers seen at this time. No evidence of any obvious other pathology. The patient tolerated the procedure very well without any complication. SUMMARY OF FINDINGS: 1. Gastritis, status post biopsy. 2. Small duodenal AVM. RECOMMENDATIONS: Resume diet. Follow laboratories. PPI daily. Follow biopsy results. Alexandro Marin M.D. DR: Carli JOB#: [id number] CC:
[2018-02-02] MEDS: Atorvastatin 20mg tab ORAL SCH (20:13)
[2018-02-02] MEDS: Levemir Flexpen SUBQ SCH (20:17)
[2018-02-03] VITALS (8 sets, daily range): BP systolic 117–180; BP diastolic 68–106
[2018-02-03] MEDS: Morphine Sulfate 2mg/ml Inj(IV/IM USE ONLY) IVP PRN (02:16)
[2018-02-03] MEDS: NovoLOG Insulin Flexpen SUBQ SCH ×4 (05:42→21:42)
[2018-02-03 05:50] LABS: EOSINOPHILS % (AUTO) 1.9 % (0.0-3.0); HEMATOCRIT 44.5 % (37.0-47.0); HEMOGLOBIN 15.2 G/DL (12.0-16.0); LYMPHOCYTES % (AUTO) 30.5 % (20.0-45.0); MEAN CORPUSCULAR VOLUME 84 FL (80-99); MONOCYTES % (AUTO) 10.3 % (1.0-10.0); NEUTROPHILS % (AUTO) 56.3 % (45.0-75.0); PLATELET COUNT 255 K/UL (150-450); RED BLOOD COUNT 5.28 M/UL (4.20-5.40); RED CELL DISTRIBUTION WIDTH 11.2 % (11.6-14.8); WHITE BLOOD COUNT 4.7 K/UL (4.8-10.8)
[2018-02-03 06:01] LABS: ANION GAP 12 mmol/L (5-15); BLOOD UREA NITROGEN 20 mg/dL (7-18); CALCIUM 9.6 MG/DL (8.5-10.1); CARBON DIOXIDE 21 MMOL/L (21-32); CHLORIDE 102 MMOL/L (98-107); CREATININE 0.8 MG/DL (0.55-1.30); POTASSIUM 3.4 MMOL/L (3.5-5.1); SODIUM 135 MMOL/L (136-145)
[2018-02-03] MEDS: Aspirin EC 81mg tab ORAL SCH (09:13)
[2018-02-03] MEDS: Pancrease Cap ORAL SCH ×3 (09:13→18:10)
[2018-02-03] MEDS: Sucralfate 1gm tab ORAL SCH ×2 (09:14→17:30)
[2018-02-03] MEDS: Thiamine 100mg tab ORAL SCH (09:14)
[2018-02-03] MEDS: Docusate 100mg cap ORAL SCH ×2 (09:15→21:40)
[2018-02-03] MEDS: Enoxaparin 40mg Inj SUBQ SCH (09:17)
[2018-02-03] MEDS: Cosopt Opth Soln 10 mL Btl BOTH EYES SCH ×2 (09:24→17:39)
--- NOTE | 2018-02-03 12:38 | Cardiology Progress Note ---
Assessment/Plan Status: stable Assessment/Plan ASSESSMENT (1) H pylori ulcer (2) Vomiting (3) Intractable abdominal pain (4) Diabetes mellitus type 2, uncontrolled, with complications (5) Chronic Pancreatitis (6) Alcohol abuse (7) Gastric ulcer (8) Common bile duct dilation (9) TACHYCARDIA - resolved (10) Hypertension (11) Hyperlipidemia PLAN -EGD with gastritis -Tachycardia resolved, no indication for further treatment, likely etiology dehydration/hemoconcentration -BP control, atenolol, norvasc 10 mg, add cardura -Outpatient stress test -BID PPI -Alcohol cessation -Dispo planning Subjective Cardiovascular: Reports: no symptoms Respiratory: Reports: no symptoms Gastrointestinal/Abdominal: Reports: no symptoms Genitourinary: Reports: no symptoms Subjective No acute events, bradycardia resolved, BP elevated Objective Last 24 Hour Vital Signs Date Time Temp Pulse Resp B/P (MAP) Pulse Ox O2 Delivery O2 Flow Rate FiO2 02/03/18 09:24 72 141/94 02/03/18 09:14 72 141/94 02/03/18 09:00 Room Air 02/03/18 08:00 71 02/03/18 08:00 98.1 72 18 141/94 (110) 95 98.1 02/03/18 06:55 146/95 (112) 02/03/18 06:27 96 180/90 02/03/18 04:31 180/90 02/03/18 04:00 96 02/03/18 04:00 97.3 77 24 180/90 (120) 100 97.3 02/03/18 00:00 67 02/03/18 00:00 97.4 71 20 117/68 (84) 96 97.4 02/02/18 21:00 Room Air 02/02/18 20:00 97.9 77 23 111/66 (81) 97 97.9 02/02/18 16:00 98.1 85 18 97/56 (70) 99 98.1 02/02/18 15:36 79 02/02/18 14:56 173/93 02/02/18 13:23 173/93 General Appearance: no apparent distress, alert EENT: PERRL/EOMI, normal ENT inspection Neck: non-tender, normal alignment Rhythm: NSR Cardiovascular: normal peripheral pulses, normal rate, regular rhythm Respiratory/Chest: chest wall non-tender, lungs clear Abdomen: normal bowel sounds, non tender Extremities: normal range of motion, non-tender 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: licensed 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 II-XII grossly normal Intake and Output 02/02/18 02/03/18 19:00 07:00 Intake Total 370 ml Output Total 0 ml Balance 370 ml Intake Oral 120 ml IV Total 250 ml Estimated Blood Loss 0 ml # Voids 2 6 Laboratory Tests Test 02/03/18 05:35 White Blood Count 4.7 K/UL (4.8-10.8) L Red Blood Count 5.28 M/UL (4.20-5.40) Hemoglobin 15.2 G/DL (12.0-16.0) Hematocrit 44.5 % (37.0-47.0) Mean Corpuscular Volume 84 FL (80-99) Mean Corpuscular Hemoglobin 28.7 PG (27.0-31.0) Mean Corpuscular Hemoglobin Concent 34.1 G/DL (32.0-36.0) Red Cell Distribution Width 11.2 % (11.6-14.8) L Platelet Count 255 K/UL (150-450) Mean Platelet Volume 6.2 FL (6.5-10.1) L Neutrophils (%) (Auto) 56.3 % (45.0-75.0) Lymphocytes (%) (Auto) 30.5 % (20.0-45.0) Monocytes (%) (Auto) 10.3 % (1.0-10.0) H Eosinophils (%) (Auto) 1.9 % (0.0-3.0) Basophils (%) (Auto) 1.0 % (0.0-2.0) Sodium Level 135 MMOL/L (136-145) L Potassium Level 3.4 MMOL/L (3.5-5.1) L Chloride Level 102 MMOL/L (98-107) Carbon Dioxide Level 21 MMOL/L (21-32) Anion Gap 12 mmol/L (5-15) Blood Urea Nitrogen 20 mg/dL (7-18) H Creatinine 0.8 MG/DL (0.55-1.30) Estimat Glomerular Filtration Rate mL/min (>60) Glucose Level 299 MG/DL (74-106) #H Calcium Level 9.6 MG/DL (8.5-10.1) Magnesium Level 1.5 MG/DL (1.8-2.4) L Troponin I 0.000 ng/mL (0.000-0.056) Microbiology Date/Time Source Procedure Growth Status 02/01/18 05:14 Blood Blood Culture - Preliminary NO GROWTH AFTER 24 HOURS Resulted 02/01/18 05:00 Blood Blood Culture - Preliminary NO GROWTH AFTER 24 HOURS Resulted 02/01/18 08:33 Nasal Nares MRSA Culture - Final NO METHICILLIN RESISTANT STAPH AUREUS... Complete 02/01/18 08:33 Rectum - Final NO CARBAPENEM-RESISTANT ENTEROBACTERI... Complete 02/01/18 08:33 Rectum VRE Culture - Final NO VANCOMYCIN RESISTANT ENTEROCOCCUS ... Complete Mukesh Leggett M.D. Feb 03, 2018 12:38
--- NOTE | 2018-02-03 13:05 | Nephrology Progress Note ---
Assessment/Plan Assessment/Plan A/P 1. ABD Pain- with N/V -EGD = gastritis - DC patient once she can tolerate solid food - protonix and sucrafate 2. HTN- variable. Atenolol, clonidine norvasc 3. DM- on ISS and levemir 4. DVT prophylaxsis- lovenox Subjective Date patient seen: Feb 03, 2018 Time patient seen: 13:01 ROS Limited/Unobtainable: No Gastrointestinal/Abdominal: Reports: abdominal pain, vomiting Allergies: Coded Allergies: No Known Allergies (Unverified , 10/15/12) Subjective Patient feeling better. N/V resolving and abd pain improved but still little nauseated Objective Last 24 Hour Vital Signs Date Time Temp Pulse Resp B/P (MAP) Pulse Ox O2 Delivery O2 Flow Rate FiO2 02/03/18 09:24 72 141/94 02/03/18 09:14 72 141/94 02/03/18 09:00 Room Air 02/03/18 08:00 71 02/03/18 08:00 98.1 72 18 141/94 (110) 95 98.1 02/03/18 06:55 146/95 (112) 02/03/18 06:27 96 180/90 02/03/18 04:31 180/90 02/03/18 04:00 96 02/03/18 04:00 97.3 77 24 180/90 (120) 100 97.3 02/03/18 00:00 67 02/03/18 00:00 97.4 71 20 117/68 (84) 96 97.4 02/02/18 21:00 Room Air 02/02/18 20:00 97.9 77 23 111/66 (81) 97 97.9 02/02/18 16:00 98.1 85 18 97/56 (70) 99 98.1 02/02/18 15:36 79 02/02/18 14:56 173/93 02/02/18 13:23 173/93 Intake and Output 02/02/18 02/03/18 19:00 07:00 Intake Total 370 ml Output Total 0 ml Balance 370 ml Intake Oral 120 ml IV Total 250 ml Estimated Blood Loss 0 ml # Voids 2 6 Laboratory Tests 02/03/18 05:35: White Blood Count 4.7L, Red Blood Count 5.28, Hemoglobin 15.2, Hematocrit 44.5, Mean Corpuscular Volume 84, Mean Corpuscular Hemoglobin 28.7, Mean Corpuscular Hemoglobin Concent 34.1, Red Cell Distribution Width 11.2L, Platelet Count 255, Mean Platelet Volume 6.2L, Neutrophils (%) (Auto) 56.3, Lymphocytes (%) (Auto) 30.5, Monocytes (%) (Auto) 10.3H, Eosinophils (%) (Auto) 1.9, Basophils (%) ( Auto) 1.0, Sodium Level 135L, Potassium Level 3.4L, Chloride Level 102, Carbon Dioxide Level 21, Anion Gap 12, Blood Urea Nitrogen 20H, Creatinine 0.8, Estimat Glomerular Filtration Rate , Glucose Level 299#H, Calcium Level 9.6, Magnesium Level 1.5L, Troponin I 0.000 Height (Feet): 5 Height (Inches): 2.00 Weight (Pounds): 127 General Appearance: WD/WN, no apparent distress EENT: normal ENT inspection Cardiovascular: normal rate, regular rhythm Respiratory/Chest: lungs clear, normal breath sounds Abdomen: non tender, soft Edema: no edema noted Arm (L), no edema noted Arm (R), no edema noted Leg (L), no edema noted Leg (R), no edema noted Pedal (L), no edema noted Pedal (R), no edema noted Generalized Maynor Weathers M.D. Feb 03, 2018 13:05
[2018-02-03] MEDS ORDERED: Magnesium Oxide 400mg tab ORAL SCH (13:15)
--- NOTE | 2018-02-03 13:17 | General Surgery Progress Note ---
General Surgery-Progress Note Subjective Symptoms: improved, tolerating diet, passing flatus Additional Comments no acute events. still with mild abd discomfort. asking for pain meds Objective Last 24 Hour Vital Signs Date Time Temp Pulse Resp B/P (MAP) Pulse Ox O2 Delivery O2 Flow Rate FiO2 02/03/18 09:24 72 141/94 02/03/18 09:14 72 141/94 02/03/18 09:00 Room Air 02/03/18 08:00 71 02/03/18 08:00 98.1 72 18 141/94 (110) 95 98.1 02/03/18 06:55 146/95 (112) 02/03/18 06:27 96 180/90 02/03/18 04:31 180/90 02/03/18 04:00 96 02/03/18 04:00 97.3 77 24 180/90 (120) 100 97.3 02/03/18 00:00 67 02/03/18 00:00 97.4 71 20 117/68 (84) 96 97.4 02/02/18 21:00 Room Air 02/02/18 20:00 97.9 77 23 111/66 (81) 97 97.9 02/02/18 16:00 98.1 85 18 97/56 (70) 99 98.1 02/02/18 15:36 79 02/02/18 14:56 173/93 02/02/18 13:23 173/93 I&O Intake and Output 02/02/18 02/03/18 19:00 07:00 Intake Total 370 ml Output Total 0 ml Balance 370 ml Intake Oral 120 ml IV Total 250 ml Estimated Blood Loss 0 ml # Voids 2 6 Drains: none Cardiovascular: RSR Respiratory: clear Abdomen: soft, flat, non-tender, present bowel sounds Extremities: no cyanosis Laboratory Tests Test 02/03/18 05:35 White Blood Count 4.7 K/UL (4.8-10.8) L Red Blood Count 5.28 M/UL (4.20-5.40) Hemoglobin 15.2 G/DL (12.0-16.0) Hematocrit 44.5 % (37.0-47.0) Mean Corpuscular Volume 84 FL (80-99) Mean Corpuscular Hemoglobin 28.7 PG (27.0-31.0) Mean Corpuscular Hemoglobin Concent 34.1 G/DL (32.0-36.0) Red Cell Distribution Width 11.2 % (11.6-14.8) L Platelet Count 255 K/UL (150-450) Mean Platelet Volume 6.2 FL (6.5-10.1) L Neutrophils (%) (Auto) 56.3 % (45.0-75.0) Lymphocytes (%) (Auto) 30.5 % (20.0-45.0) Monocytes (%) (Auto) 10.3 % (1.0-10.0) H Eosinophils (%) (Auto) 1.9 % (0.0-3.0) Basophils (%) (Auto) 1.0 % (0.0-2.0) Sodium Level 135 MMOL/L (136-145) L Potassium Level 3.4 MMOL/L (3.5-5.1) L Chloride Level 102 MMOL/L (98-107) Carbon Dioxide Level 21 MMOL/L (21-32) Anion Gap 12 mmol/L (5-15) Blood Urea Nitrogen 20 mg/dL (7-18) H Creatinine 0.8 MG/DL (0.55-1.30) Estimat Glomerular Filtration Rate mL/min (>60) Glucose Level 299 MG/DL (74-106) #H Calcium Level 9.6 MG/DL (8.5-10.1) Magnesium Level 1.5 MG/DL (1.8-2.4) L Troponin I 0.000 ng/mL (0.000-0.056) Plan Problems: (1) Abdominal pain Assessment & Plan: chronic pancreatitis. etiology unknown. denies heavy etoh use. CT reviewed an atrophic pancreas noted with dilated ducts. no masses noted. no acute surgical intervention indicated symptomatic treatment diet as tolerated d/c planning will follow with recs. thank you (2) Pancreatitis Ricki Gómez Feb 03, 2018 13:16
--- NOTE | 2018-02-03 13:30 | General Progress Note ---
Assessment/Plan Assessment/Plan Assessment (1) H pylori gastritis (2) Vomiting (3) Intractable abdominal pain (4) Diabetes mellitus type 2, uncontrolled, with complications (5) Pancreatitis (6) Alcohol abuse (7) Gastric ulcer (8) Common bile duct dilation Plan abd ultrasound noted CLD, adv as tolerated ppi + carafate pancrease reglan prn for N/V pain mgmt fu labs Subjective Allergies: Coded Allergies: No Known Allergies (Unverified , 10/15/12) Subjective No abd pain poor appetite no vomiting Objective Last 24 Hour Vital Signs Date Time Temp Pulse Resp B/P (MAP) Pulse Ox O2 Delivery O2 Flow Rate FiO2 02/03/18 12:00 73 02/03/18 12:00 98.0 99 20 147/93 (111) 99 98.0 02/03/18 09:24 72 141/94 02/03/18 09:14 72 141/94 02/03/18 09:00 Room Air 02/03/18 08:00 71 02/03/18 08:00 98.1 72 18 141/94 (110) 95 98.1 02/03/18 06:55 146/95 (112) 02/03/18 06:27 96 180/90 02/03/18 04:31 180/90 02/03/18 04:00 96 02/03/18 04:00 97.3 77 24 180/90 (120) 100 97.3 02/03/18 00:00 67 02/03/18 00:00 97.4 71 20 117/68 (84) 96 97.4 02/02/18 21:00 Room Air 02/02/18 20:00 97.9 77 23 111/66 (81) 97 97.9 02/02/18 16:00 98.1 85 18 97/56 (70) 99 98.1 02/02/18 15:36 79 02/02/18 14:56 173/93 Intake and Output 02/02/18 02/03/18 19:00 07:00 Intake Total 370 ml Output Total 0 ml Balance 370 ml Intake Oral 120 ml IV Total 250 ml Estimated Blood Loss 0 ml # Voids 2 6 Laboratory Tests 02/03/18 05:35: White Blood Count 4.7L, Red Blood Count 5.28, Hemoglobin 15.2, Hematocrit 44.5, Mean Corpuscular Volume 84, Mean Corpuscular Hemoglobin 28.7, Mean Corpuscular Hemoglobin Concent 34.1, Red Cell Distribution Width 11.2L, Platelet Count 255, Mean Platelet Volume 6.2L, Neutrophils (%) (Auto) 56.3, Lymphocytes (%) (Auto) 30.5, Monocytes (%) (Auto) 10.3H, Eosinophils (%) (Auto) 1.9, Basophils (%) ( Auto) 1.0, Sodium Level 135L, Potassium Level 3.4L, Chloride Level 102, Carbon Dioxide Level 21, Anion Gap 12, Blood Urea Nitrogen 20H, Creatinine 0.8, Estimat Glomerular Filtration Rate , Glucose Level 299#H, Calcium Level 9.6, Magnesium Level 1.5L, Troponin I 0.000 Height (Feet): 5 Height (Inches): 2.00 Weight (Pounds): 127 Objective WDWN NCAT supple CTA RRR soft ND NT no edema Radha Carter MD Feb 03, 2018 13:30
[2018-02-03] MEDS: Atorvastatin 20mg tab ORAL SCH (21:40)
[2018-02-03] MEDS: Levemir Flexpen SUBQ SCH (21:43)
[2018-02-03] MEDS ORDERED: Zolpidem 5mg tab ORAL PRN (23:00)
[2018-02-04] VITALS: BP 104/87
[2018-02-04] MEDS: NovoLOG Insulin Flexpen SUBQ SCH ×4 (06:21→21:07)
[2018-02-04] MEDS ORDERED: Glimepiride 1mg tab ORAL SCH (06:30)
[2018-02-04 08:00] VITALS: BP 106/62
[2018-02-04 08:08] LABS: ANION GAP 13 mmol/L (5-15); BLOOD UREA NITROGEN 19 mg/dL (7-18); CALCIUM 9.3 MG/DL (8.5-10.1); CARBON DIOXIDE 20 MMOL/L (21-32); CHLORIDE 102 MMOL/L (98-107); CREATININE 1.6 MG/DL (0.55-1.30); POTASSIUM 3.7 MMOL/L (3.5-5.1); SODIUM 135 MMOL/L (136-145)
[2018-02-04] MEDS: Sucralfate 1gm tab ORAL SCH ×2 (08:48→17:42)
[2018-02-04] MEDS: Pancrease Cap ORAL SCH ×3 (08:48→17:41)
[2018-02-04] MEDS: Cosopt Opth Soln 10 mL Btl BOTH EYES SCH ×2 (08:49→17:42)
[2018-02-04] MEDS: Aspirin EC 81mg tab ORAL SCH (08:50)
[2018-02-04] MEDS: Docusate 100mg cap ORAL SCH ×2 (08:50→21:00)
[2018-02-04] MEDS: Thiamine 100mg tab ORAL SCH (08:50)
[2018-02-04] MEDS: Enoxaparin 40mg Inj SUBQ SCH (08:52)
[2018-02-04] MEDS ORDERED: Doxazosin 4mg tab ORAL SCH (09:00)
[2018-02-04 12:11] VITALS: BP 110/79
--- NOTE | 2018-02-04 12:34 | Nephrology Progress Note ---
Assessment/Plan Assessment/Plan A/P 1. ABD Pain- resolved -EGD = gastritis - N/V resolved - protonix and sucrafate 2. HTN- Atenolol, clonidine norvasc. Stable at goal 3. DM- on ISS and levemir 4. DVT prophylaxsis- lovenox 5. REZA- Cr 1.6 - poss contrast Nep, post CT with IV contrast - IV fluids started - DC patient once Cr improves Subjective Date patient seen: Feb 04, 2018 Time patient seen: 12:30 ROS Limited/Unobtainable: Yes Allergies: Coded Allergies: No Known Allergies (Unverified , 10/15/12) All Systems: reviewed and negative except above Subjective Patient feeling better. N/V resolving resolved. Objective Last 24 Hour Vital Signs Date Time Temp Pulse Resp B/P (MAP) Pulse Ox O2 Delivery O2 Flow Rate FiO2 02/04/18 12:11 98.6 86 20 110/79 (89) 98 98.6 02/04/18 09:00 74 106/62 02/04/18 09:00 74 106/62 02/04/18 09:00 Room Air 02/04/18 08:00 97.5 74 18 106/62 (77) 99 97.5 02/04/18 04:00 68 02/04/18 00:00 97.6 77 18 104/87 (93) 99 97.6 02/04/18 00:00 77 02/03/18 21:39 167/106 02/03/18 21:35 99.7 167/106 (126) 99.7 02/03/18 21:00 Room Air 02/03/18 20:00 82 02/03/18 20:00 100.3 80 19 162/97 (118) 97 100.3 02/03/18 16:00 83 02/03/18 16:00 97.0 70 18 151/83 (105) 98 97.0 Intake and Output 02/03/18 02/04/18 19:00 07:00 Intake Total 480 ml Balance 480 ml Intake Oral 480 ml # Voids 3 Laboratory Tests 02/04/18 06:50: Sodium Level 135L, Potassium Level 3.7, Chloride Level 102, Carbon Dioxide Level 20L, Anion Gap 13, Blood Urea Nitrogen 19H, Creatinine 1.6#H, Estimat Glomerular Filtration Rate , Glucose Level 324H, Calcium Level 9.3 Height (Feet): 5 Height (Inches): 2.00 Weight (Pounds): 127 General Appearance: WD/WN, no apparent distress EENT: normal ENT inspection Neck: normal alignment, supple Cardiovascular: normal rate, regular rhythm Respiratory/Chest: lungs clear, normal breath sounds Abdomen: normal bowel sounds, non tender, soft Edema: no edema noted Arm (L), no edema noted Arm (R), no edema noted Leg (L), no edema noted Leg (R), no edema noted Pedal (L), no edema noted Pedal (R), no edema noted Generalized Maynor Weathers M.D. Feb 04, 2018 12:34
--- NOTE | 2018-02-04 15:45 | General Surgery Progress Note ---
General Surgery-Progress Note Subjective Symptoms: improved, pain absent, tolerating diet, passing flatus, BM Objective Last 24 Hour Vital Signs Date Time Temp Pulse Resp B/P (MAP) Pulse Ox O2 Delivery O2 Flow Rate FiO2 02/04/18 12:11 98.6 86 20 110/79 (89) 98 98.6 02/04/18 09:00 74 106/62 02/04/18 09:00 74 106/62 02/04/18 09:00 Room Air 02/04/18 08:00 97.5 74 18 106/62 (77) 99 97.5 02/04/18 04:00 68 02/04/18 00:00 97.6 77 18 104/87 (93) 99 97.6 02/04/18 00:00 77 02/03/18 21:39 167/106 02/03/18 21:35 99.7 167/106 (126) 99.7 02/03/18 21:00 Room Air 02/03/18 20:00 82 02/03/18 20:00 100.3 80 19 162/97 (118) 97 100.3 02/03/18 16:00 83 02/03/18 16:00 97.0 70 18 151/83 (105) 98 97.0 I&O Intake and Output 02/03/18 02/04/18 19:00 07:00 Intake Total 480 ml Balance 480 ml Intake Oral 480 ml # Voids 3 Cardiovascular: RSR Respiratory: clear Abdomen: soft, flat, non-tender, present bowel sounds Extremities: no cyanosis Laboratory Tests Test 02/04/18 06:50 Sodium Level 135 MMOL/L (136-145) L Potassium Level 3.7 MMOL/L (3.5-5.1) Chloride Level 102 MMOL/L (98-107) Carbon Dioxide Level 20 MMOL/L (21-32) L Anion Gap 13 mmol/L (5-15) Blood Urea Nitrogen 19 mg/dL (7-18) H Creatinine 1.6 MG/DL (0.55-1.30) #H Estimat Glomerular Filtration Rate mL/min (>60) Glucose Level 324 MG/DL (74-106) H Calcium Level 9.3 MG/DL (8.5-10.1) Plan Problems: (1) Abdominal pain Assessment & Plan: chronic pancreatitis. etiology unknown. denies heavy etoh use. CT reviewed an atrophic pancreas noted with dilated ducts. no masses noted. no acute surgical intervention indicated symptomatic treatment diet as tolerated d/c planning will follow with recs. thank you (2) Pancreatitis Ricki Gómez Feb 04, 2018 15:45
--- NOTE | 2018-02-04 16:05 | General Progress Note ---
Assessment/Plan Assessment/Plan Assessment (1) H pylori gastritis (2) Vomiting (3) Intractable abdominal pain (4) Diabetes mellitus type 2, uncontrolled, with complications (5) Pancreatitis (6) Alcohol abuse (7) Gastric ulcer (8) Common bile duct dilation Plan abd ultrasound noted PO as tolerated ppi + carafate pancrease reglan prn for N/V pain mgmt fu labs Subjective Allergies: Coded Allergies: No Known Allergies (Unverified , 10/15/12) Subjective No events overnight d/w staff psychiatrist some nausea, no vomiting asking for narcotics Objective Last 24 Hour Vital Signs Date Time Temp Pulse Resp B/P (MAP) Pulse Ox O2 Delivery O2 Flow Rate FiO2 02/04/18 12:11 98.6 86 20 110/79 (89) 98 98.6 02/04/18 09:00 74 106/62 02/04/18 09:00 74 106/62 02/04/18 09:00 Room Air 02/04/18 08:00 97.5 74 18 106/62 (77) 99 97.5 02/04/18 04:00 68 02/04/18 00:00 97.6 77 18 104/87 (93) 99 97.6 02/04/18 00:00 77 02/03/18 21:39 167/106 02/03/18 21:35 99.7 167/106 (126) 99.7 02/03/18 21:00 Room Air 02/03/18 20:00 82 02/03/18 20:00 100.3 80 19 162/97 (118) 97 100.3 Intake and Output 02/03/18 02/04/18 19:00 07:00 Intake Total 480 ml Balance 480 ml Intake Oral 480 ml # Voids 3 Laboratory Tests 02/04/18 06:50: Sodium Level 135L, Potassium Level 3.7, Chloride Level 102, Carbon Dioxide Level 20L, Anion Gap 13, Blood Urea Nitrogen 19H, Creatinine 1.6#H, Estimat Glomerular Filtration Rate , Glucose Level 324H, Calcium Level 9.3 Height (Feet): 5 Height (Inches): 2.00 Weight (Pounds): 127 Objective WDWN NCAT supple CTA RRR soft ND NT no edema Radha Carter MD Feb 04, 2018 16:05
[2018-02-04 16:15] VITALS: BP 143/93
[2018-02-04 20:00] VITALS: BP 139/79
[2018-02-04] MEDS: traMADol 50mg tab ORAL PRN (21:06)
[2018-02-04] MEDS: Atorvastatin 20mg tab ORAL SCH (21:06)
[2018-02-04] MEDS: Levemir Flexpen SUBQ SCH (21:08)
[2018-02-04] MEDS: Zolpidem 5mg tab ORAL PRN (22:18)
--- NOTE | 2018-02-04 22:26 | Cardiology Progress Note ---
Assessment/Plan Status: stable Assessment/Plan ASSESSMENT (1) H pylori ulcer (2) Vomiting (3) Intractable abdominal pain (4) Diabetes mellitus type 2, uncontrolled, with complications (5) Chronic Pancreatitis (6) Alcohol abuse (7) Gastric ulcer (8) Common bile duct dilation (9) TACHYCARDIA - resolved (10) Hypertension (11) Hyperlipidemia PLAN -EGD with gastritis -Tachycardia resolved, no indication for further treatment, likely etiology dehydration/hemoconcentration -BP control, atenolol, norvasc 10 mg, added cardura - better controlled -Outpatient stress test -BID PPI -Alcohol cessation -Dispo planning when creatinine back to baseline Subjective Subjective No acute events, bradycardia resolved, BP improved on current regimen. Tolerating PO, creatinine elevated Objective Last 24 Hour Vital Signs Date Time Temp Pulse Resp B/P (MAP) Pulse Ox O2 Delivery O2 Flow Rate FiO2 02/04/18 22:05 97.9 02/04/18 21:06 97.9 02/04/18 20:00 97.9 81 18 139/79 (99) 98 97.9 02/04/18 16:15 96.9 86 18 143/93 (110) 100 96.9 02/04/18 12:11 98.6 86 20 110/79 (89) 98 98.6 02/04/18 09:00 74 106/62 02/04/18 09:00 74 106/62 02/04/18 09:00 Room Air 02/04/18 08:00 97.5 74 18 106/62 (77) 99 97.5 02/04/18 04:00 68 02/04/18 00:00 97.6 77 18 104/87 (93) 99 97.6 02/04/18 00:00 77 General Appearance: no apparent distress, alert EENT: PERRL/EOMI, normal ENT inspection Neck: non-tender, normal alignment Rhythm: NSR Cardiovascular: normal peripheral pulses, normal rate Respiratory/Chest: chest wall non-tender, lungs clear Abdomen: normal bowel sounds, non tender Extremities: normal range of motion, non-tender Neurologic: environmental services director II-XII grossly normal, no motor/sensory deficits Intake and Output 02/03/18 02/04/18 19:00 07:00 Intake Total 480 ml Balance 480 ml Intake Oral 480 ml # Voids 3 Laboratory Tests Test 02/04/18 06:50 Sodium Level 135 MMOL/L (136-145) L Potassium Level 3.7 MMOL/L (3.5-5.1) Chloride Level 102 MMOL/L (98-107) Carbon Dioxide Level 20 MMOL/L (21-32) L Anion Gap 13 mmol/L (5-15) Blood Urea Nitrogen 19 mg/dL (7-18) H Creatinine 1.6 MG/DL (0.55-1.30) #H Estimat Glomerular Filtration Rate mL/min (>60) Glucose Level 324 MG/DL (74-106) H Calcium Level 9.3 MG/DL (8.5-10.1) Mukesh Leggett M.D. Feb 04, 2018 22:26
[2018-02-05] VITALS: BP 163/99
[2018-02-05 04:00] VITALS: BP 111/49
[2018-02-05] MEDS ORDERED: Isovue-300 100ml vial INJ PRN (05:15)
[2018-02-05] MEDS: NovoLOG Insulin Flexpen SUBQ SCH ×4 (06:04→21:00)
[2018-02-05] MEDS: Glimepiride 1mg tab ORAL SCH (06:06)
[2018-02-05 08:11] LABS: BASOPHILS % (AUTO) 1.3 % (0.0-2.0); EOSINOPHILS % (AUTO) 2.3 % (0.0-3.0); HEMATOCRIT 44.2 % (37.0-47.0); HEMOGLOBIN 15.1 G/DL (12.0-16.0); LYMPHOCYTES % (AUTO) 37.8 % (20.0-45.0); MEAN CORPUSCULAR VOLUME 85 FL (80-99); MONOCYTES % (AUTO) 8.6 % (1.0-10.0); NEUTROPHILS % (AUTO) 49.9 % (45.0-75.0); PLATELET COUNT 279 K/UL (150-450); RED BLOOD COUNT 5.23 M/UL (4.20-5.40); RED CELL DISTRIBUTION WIDTH 11.5 % (11.6-14.8); WHITE BLOOD COUNT 5.9 K/UL (4.8-10.8)
--- NOTE | 2018-02-05 08:12 | Nephrology Progress Note ---
Assessment/Plan Assessment/Plan A/P 1. ABD Pain- resolved -EGD = gastritis - protonix and sucrafate 2. HTN- Atenolol, clonidine norvasc. Stable at goal 3. DM- on ISS and levemir 4. DVT prophylaxsis- lovenox 5. REZA- Cr 1.6 - poss contrast Nep, post CT with IV contrast - IV fluids - AM labs pending DC patient today with HH if Cr improved Subjective Date patient seen: Feb 05, 2018 Time patient seen: 08:11 ROS Limited/Unobtainable: No Allergies: Coded Allergies: No Known Allergies (Unverified , 10/15/12) All Systems: reviewed and negative except above Subjective Patient stable. N/V resolved. Objective Last 24 Hour Vital Signs Date Time Temp Pulse Resp B/P (MAP) Pulse Ox O2 Delivery O2 Flow Rate FiO2 02/05/18 04:00 97.9 77 19 111/49 (69) 98 97.9 02/05/18 00:12 163/99 02/05/18 00:00 97.7 82 20 163/99 (120) 99 97.7 02/04/18 22:05 97.9 02/04/18 21:06 97.9 02/04/18 21:00 Room Air 02/04/18 20:00 97.9 81 18 139/79 (99) 98 97.9 02/04/18 16:15 96.9 86 18 143/93 (110) 100 96.9 02/04/18 12:11 98.6 86 20 110/79 (89) 98 98.6 02/04/18 09:00 74 106/62 02/04/18 09:00 74 106/62 02/04/18 09:00 Room Air Intake and Output 02/04/18 02/05/18 19:00 07:00 Intake Total 990 ml 570 ml Balance 990 ml 570 ml Intake Oral 240 ml 320 ml IV Total 750 ml 250 ml # Voids 3 2 # Bowel Movements 2 3 Laboratory Tests 02/05/18 06:40: White Blood Count [Pending], Red Blood Count [Pending], Hemoglobin [Pending], Hematocrit [Pending], Mean Corpuscular Volume [Pending], Mean Corpuscular Hemoglobin [Pending], Mean Corpuscular Hemoglobin Concent [Pending], Red Cell Distribution Width [Pending], Platelet Count [Pending], Mean Platelet Volume [ Pending], Neutrophils (%) (Auto) [Pending], Lymphocytes (%) (Auto) [Pending], Monocytes (%) (Auto) [Pending], Eosinophils (%) (Auto) [Pending], Basophils (%) (Auto) [Pending], Sodium Level [Pending], Potassium Level [Pending], Chloride Level [Pending], Carbon Dioxide Level [Pending], Blood Urea Nitrogen [Pending], Creatinine [Pending], Estimat Glomerular Filtration Rate [Pending], Glucose Level [Pending], Calcium Level [Pending] Height (Feet): 5 Height (Inches): 2.00 Weight (Pounds): 127 General Appearance: WD/WN, no apparent distress EENT: PERRL/EOMI Neck: non-tender, normal alignment Cardiovascular: normal rate, regular rhythm Respiratory/Chest: lungs clear, normal breath sounds Abdomen: non tender, soft Edema: no edema noted Arm (L), no edema noted Arm (R), no edema noted Leg (L), no edema noted Leg (R), no edema noted Pedal (L), no edema noted Pedal (R), no edema noted Generalized Maynor Weathers M.D. Feb 05, 2018 08:12
[2018-02-05 08:23] LABS: ANION GAP 10 mmol/L (5-15); BLOOD UREA NITROGEN 21 mg/dL (7-18); CALCIUM 9.5 MG/DL (8.5-10.1); CARBON DIOXIDE 24 MMOL/L (21-32); CHLORIDE 102 MMOL/L (98-107); CREATININE 1.4 MG/DL (0.55-1.30); POTASSIUM 3.5 MMOL/L (3.5-5.1); SODIUM 136 MMOL/L (136-145)
[2018-02-05] MEDS: Thiamine 100mg tab ORAL SCH (08:27)
[2018-02-05] MEDS: Pancrease Cap ORAL SCH ×3 (08:27→17:34)
[2018-02-05] MEDS: Sucralfate 1gm tab ORAL SCH ×2 (08:27→17:33)
[2018-02-05] MEDS: Doxazosin 4mg tab ORAL SCH (08:28)
[2018-02-05] MEDS: Cosopt Opth Soln 10 mL Btl BOTH EYES SCH ×2 (08:29→17:33)
[2018-02-05] MEDS: Aspirin EC 81mg tab ORAL SCH (08:29)
[2018-02-05] MEDS: Enoxaparin 40mg Inj SUBQ SCH (08:31)
[2018-02-05] MEDS: Docusate 100mg cap ORAL SCH ×2 (08:32→20:57)
[2018-02-05 08:35] VITALS: BP 99/61
[2018-02-05] MEDS: traMADol 50mg tab ORAL PRN ×2 (08:46→17:33)
--- NOTE | 2018-02-05 10:34 | GI Progress Note ---
Assessment/Plan Problems: (1) Vomiting ICD Codes: R11.10 - Vomiting, unspecified SNOMED: 302639695 (2) Intractable abdominal pain ICD Codes: R10.9 - Unspecified abdominal pain SNOMED: 58527366 (3) Pancreatic duct dilated ICD Codes: K86.89 - Other specified diseases of pancreas SNOMED: 865766148 (4) Acute alcoholic pancreatitis ICD Codes: K85.2 - Alcohol induced acute pancreatitis SNOMED: 863832820 (5) Abnormal liver function test ICD Codes: R79.89 - Other specified abnormal findings of blood chemistry SNOMED: 029936830 (6) Abdominal pain ICD Codes: R10.9 - Unspecified abdominal pain SNOMED: 53506587 (7) Nausea and vomiting ICD Codes: R11.2 - Nausea with vomiting, unspecified SNOMED: 53156352 Status: stable Status Narrative Discussed with Dr. Marin. Assessment/Plan Assessment (1) H pylori gastritis (2) Vomiting (3) Intractable abdominal pain (4) Diabetes mellitus type 2, uncontrolled, with complications (5) Pancreatitis (6) Alcohol abuse (7) Gastric ulcer (8) Common bile duct dilation Plan abd ultrasound noted PO as tolerated ppi + carafate pancrease reglan prn for N/V pain mgmt fu labs outpatient EUS Subjective Subjective still has abdominal pain Objective Last 24 Hour Vital Signs Date Time Temp Pulse Resp B/P (MAP) Pulse Ox O2 Delivery O2 Flow Rate FiO2 02/05/18 09:45 97.2 02/05/18 09:00 Room Air 02/05/18 08:46 97.2 02/05/18 08:35 97.2 85 20 99/61 (74) 100 97.2 02/05/18 04:00 97.9 77 19 111/49 (69) 98 97.9 02/05/18 00:12 163/99 02/05/18 00:00 97.7 82 20 163/99 (120) 99 97.7 02/04/18 21:06 97.9 02/04/18 21:00 Room Air 02/04/18 20:00 97.9 81 18 139/79 (99) 98 97.9 02/04/18 16:15 96.9 86 18 143/93 (110) 100 96.9 02/04/18 12:11 98.6 86 20 110/79 (89) 98 98.6 Intake and Output 02/04/18 02/05/18 19:00 07:00 Intake Total 990 ml 570 ml Balance 990 ml 570 ml Intake Oral 240 ml 320 ml IV Total 750 ml 250 ml # Voids 3 2 # Bowel Movements 2 3 Laboratory Tests Test 02/05/18 06:40 White Blood Count 5.9 K/UL (4.8-10.8) Red Blood Count 5.23 M/UL (4.20-5.40) Hemoglobin 15.1 G/DL (12.0-16.0) Hematocrit 44.2 % (37.0-47.0) Mean Corpuscular Volume 85 FL (80-99) Mean Corpuscular Hemoglobin 28.8 PG (27.0-31.0) Mean Corpuscular Hemoglobin Concent 34.1 G/DL (32.0-36.0) Red Cell Distribution Width 11.5 % (11.6-14.8) L Platelet Count 279 K/UL (150-450) Mean Platelet Volume 6.4 FL (6.5-10.1) L Neutrophils (%) (Auto) 49.9 % (45.0-75.0) Lymphocytes (%) (Auto) 37.8 % (20.0-45.0) Monocytes (%) (Auto) 8.6 % (1.0-10.0) Eosinophils (%) (Auto) 2.3 % (0.0-3.0) Basophils (%) (Auto) 1.3 % (0.0-2.0) Sodium Level 136 MMOL/L (136-145) Potassium Level 3.5 MMOL/L (3.5-5.1) Chloride Level 102 MMOL/L (98-107) Carbon Dioxide Level 24 MMOL/L (21-32) Anion Gap 10 mmol/L (5-15) Blood Urea Nitrogen 21 mg/dL (7-18) H Creatinine 1.4 MG/DL (0.55-1.30) H Estimat Glomerular Filtration Rate mL/min (>60) Glucose Level 165 MG/DL (74-106) #H Calcium Level 9.5 MG/DL (8.5-10.1) Height (Feet): 5 Height (Inches): 2.00 Weight (Pounds): 127 General Appearance: WD/WN, no apparent distress, alert Cardiovascular: normal rate, diastolic murmur Respiratory/Chest: normal breath sounds, no respiratory distress Abdominal Exam: normal bowel sounds, non tender, soft Extremities: normal range of motion, non-tender Lidia Woodard NP Feb 05, 2018 10:34
--- NOTE | 2018-02-05 11:06 | General Surgery Progress Note ---
General Surgery-Progress Note Subjective Symptoms: improved, tolerating diet, passing flatus, BM Objective Last 24 Hour Vital Signs Date Time Temp Pulse Resp B/P (MAP) Pulse Ox O2 Delivery O2 Flow Rate FiO2 02/05/18 09:45 97.2 02/05/18 09:00 Room Air 02/05/18 08:46 97.2 02/05/18 08:35 97.2 85 20 99/61 (74) 100 97.2 02/05/18 04:00 97.9 77 19 111/49 (69) 98 97.9 02/05/18 00:12 163/99 02/05/18 00:00 97.7 82 20 163/99 (120) 99 97.7 02/04/18 21:06 97.9 02/04/18 21:00 Room Air 02/04/18 20:00 97.9 81 18 139/79 (99) 98 97.9 02/04/18 16:15 96.9 86 18 143/93 (110) 100 96.9 02/04/18 12:11 98.6 86 20 110/79 (89) 98 98.6 I&O Intake and Output 02/04/18 02/05/18 19:00 07:00 Intake Total 990 ml 570 ml Balance 990 ml 570 ml Intake Oral 240 ml 320 ml IV Total 750 ml 250 ml # Voids 3 2 # Bowel Movements 2 3 Drains: none Cardiovascular: RSR Respiratory: clear Abdomen: soft, flat, non-tender, present bowel sounds Extremities: no cyanosis Laboratory Tests Test 02/05/18 06:40 White Blood Count 5.9 K/UL (4.8-10.8) Red Blood Count 5.23 M/UL (4.20-5.40) Hemoglobin 15.1 G/DL (12.0-16.0) Hematocrit 44.2 % (37.0-47.0) Mean Corpuscular Volume 85 FL (80-99) Mean Corpuscular Hemoglobin 28.8 PG (27.0-31.0) Mean Corpuscular Hemoglobin Concent 34.1 G/DL (32.0-36.0) Red Cell Distribution Width 11.5 % (11.6-14.8) L Platelet Count 279 K/UL (150-450) Mean Platelet Volume 6.4 FL (6.5-10.1) L Neutrophils (%) (Auto) 49.9 % (45.0-75.0) Lymphocytes (%) (Auto) 37.8 % (20.0-45.0) Monocytes (%) (Auto) 8.6 % (1.0-10.0) Eosinophils (%) (Auto) 2.3 % (0.0-3.0) Basophils (%) (Auto) 1.3 % (0.0-2.0) Sodium Level 136 MMOL/L (136-145) Potassium Level 3.5 MMOL/L (3.5-5.1) Chloride Level 102 MMOL/L (98-107) Carbon Dioxide Level 24 MMOL/L (21-32) Anion Gap 10 mmol/L (5-15) Blood Urea Nitrogen 21 mg/dL (7-18) H Creatinine 1.4 MG/DL (0.55-1.30) H Estimat Glomerular Filtration Rate mL/min (>60) Glucose Level 165 MG/DL (74-106) #H Calcium Level 9.5 MG/DL (8.5-10.1) Plan Problems: (1) Abdominal pain Assessment & Plan: chronic pancreatitis. etiology unknown. denies heavy etoh use. CT reviewed an atrophic pancreas noted with dilated ducts. no masses noted. no acute surgical intervention indicated symptomatic treatment diet as tolerated d/c planning will follow with recs. thank you (2) Pancreatitis Ricki Gómez Feb 05, 2018 11:06
--- NOTE | 2018-02-05 11:26 | Consultation ---
History of Present Illness General Date patient seen: Feb 05, 2018 Chief Complaint: Abdominal Pain Referring physician: MCCLELLAN Reason for Consultation: N/V Present Illness HPI 77F with multiple medical comorbidities presented to ED with complaints of abdominal pain, nausea, emesis. the pt has poor po intake waxing and waning of consciousness. The pt has anxiety and depressed mood Allergies: Coded Allergies: No Known Allergies (Unverified , 10/15/12) Medication History Scheduled Aspirin* (Aspirin*), 81 MG NG DAILY Atenolol* (Tenormin*), 50 MG ORAL DAILY, (Reported) Atorvastatin Calcium* (Lipitor*), 40 MG ORAL BEDTIME Cyclosporine (Restasis), 1 DROP BOTH EYES EVERY 12 HOURS, (Reported) Dorzolamide Hcl/Timolol Maleat (Cosopt Eye Drops), 10 ML OP BID, (Reported) Folic Acid* (Folic Acid*), 1 MG ORAL DAILY Glimepiride* (Glimepiride*), 2 MG ORAL BEFORE BREAKFAST Insulin Aspart (Novolog Flexpen), 5 UNITS SUBQ NOVOTIAC Insulin Aspart (Novolog Flexpen), 5 UNITS SUBQ NOVOTIAC Insulin Aspart (Novolog Flexpen), 0 UNITS SUBQ BEFORE MEALS AND HS Insulin Detemir (Levemir Flexpen), 15 UNITS SUBQ QHS Insulin Detemir (Levemir Flexpen), 8 UNITS SUBQ Q12HR Metformin Hcl* (Metformin Hcl*), 1,000 MG ORAL TWICE A DAY Metformin Hcl* (Glucophage*), 500 MG ORAL TIAC Mirtazapine (Mirtazapine), 15 MG ORAL BEDTIME, (Reported) Multivitamins* (Multivitamins*), 1 TAB ORAL DAILY Omeprazole (Omeprazole), 20 MG ORAL DAILY, (Reported) Thiamine Hcl (Vitamin B1*), 100 MG ORAL DAILY Miscellaneous Medications Unable to Obtain Medications (Unable To Obtain Meds), (Reported) Discontinued Medications Hydrocodone/Acetaminophen 5-325* (Hydrocodone/Acetaminophen 5-325*), 1 TAB ORAL Q6H PRN for For Pain Discontinued Reason: Therapy completed Ibuprofen* (Motrin*), 600 MG ORAL THREE TIMES A DAY Discontinued Reason: Therapy completed Durable Medical Equipment Walker (Ultra-Light Rollator), 1 EACH , (DME) Patient History Limited by: medical condition History Provided By: Medical Record, PMD Healthcare decision maker Resuscitation status Full Code Advanced Directive on File No Past Medical/Surgical History Past Medical/Surgical History: (1) Umbilical hernia (2) Dehydration (3) Lactic acidosis (4) Hyperglycemia (5) Gastric ulcer (6) Alcohol abuse (7) Pancreatitis (8) H pylori ulcer (9) Common bile duct dilation (10) Hyperkalemia (11) Cellulitis (12) DKA (diabetic ketoacidoses) (13) Diarrhea (14) Gastroenteritis (15) Hyponatremia (16) Hypoalbuminemia (17) Nausea and vomiting (18) Abdominal pain (19) Chest pain (20) HTN (hypertension) (21) HTN (hypertension) (22) Hepatitis B (23) Abnormal liver function test (24) Hordeolum external (25) HLD (hyperlipidemia) (26) LGI bleed (27) Nausea & vomiting (28) Acute coronary syndrome (29) Atypical chest pain (30) ACS (acute coronary syndrome) (31) Left leg pain (32) Acute alcoholic pancreatitis (33) Pancreatic duct dilated (34) Near syncope (35) DM2 (diabetes mellitus, type 2) (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 (37) Hyperglycemia due to type 2 diabetes mellitus (38) Acute coronary (39) Abdominal pain (40) Abdominal pain (41) Intractable abdominal pain (42) Vomiting (43) REZA (acute kidney injury) (44) Hypokalemia (45) Hypovolemia due to dehydration (46) Viral gastroenteritis (47) Diabetes mellitus type 2, uncontrolled, with complications Review of Systems Psychiatric: Reports: prior hx, anxiety, depressed feelings Physical Exam General Appearance: no apparent distress, alert Neurologic: depressed affect Last 24 Hour Vital Signs Date Time Temp Pulse Resp B/P (MAP) Pulse Ox O2 Delivery O2 Flow Rate FiO2 02/05/18 09:45 97.2 02/05/18 09:00 Room Air 02/05/18 08:46 97.2 02/05/18 08:35 97.2 85 20 99/61 (74) 100 97.2 02/05/18 04:00 97.9 77 19 111/49 (69) 98 97.9 02/05/18 00:12 163/99 02/05/18 00:00 97.7 82 20 163/99 (120) 99 97.7 02/04/18 21:06 97.9 8/26/18 21:00 Room Air 02/04/18 20:00 97.9 81 18 139/79 (99) 98 97.9 02/04/18 16:15 96.9 86 18 143/93 (110) 100 96.9 02/04/18 12:11 98.6 86 20 110/79 (89) 98 98.6 Intake and Output 02/04/18 02/05/18 19:00 07:00 Intake Total 990 ml 570 ml Balance 990 ml 570 ml Intake Oral 240 ml 320 ml IV Total 750 ml 250 ml # Voids 3 2 # Bowel Movements 2 3 Laboratory Tests Test 02/05/18 06:40 White Blood Count 5.9 K/UL (4.8-10.8) Red Blood Count 5.23 M/UL (4.20-5.40) Hemoglobin 15.1 G/DL (12.0-16.0) Hematocrit 44.2 % (37.0-47.0) Mean Corpuscular Volume 85 FL (80-99) Mean Corpuscular Hemoglobin 28.8 PG (27.0-31.0) Mean Corpuscular Hemoglobin Concent 34.1 G/DL (32.0-36.0) Red Cell Distribution Width 11.5 % (11.6-14.8) L Platelet Count 279 K/UL (150-450) Mean Platelet Volume 6.4 FL (6.5-10.1) L Neutrophils (%) (Auto) 49.9 % (45.0-75.0) Lymphocytes (%) (Auto) 37.8 % (20.0-45.0) Monocytes (%) (Auto) 8.6 % (1.0-10.0) Eosinophils (%) (Auto) 2.3 % (0.0-3.0) Basophils (%) (Auto) 1.3 % (0.0-2.0) Sodium Level 136 MMOL/L (136-145) Potassium Level 3.5 MMOL/L (3.5-5.1) Chloride Level 102 MMOL/L (98-107) Carbon Dioxide Level 24 MMOL/L (21-32) Anion Gap 10 mmol/L (5-15) Blood Urea Nitrogen 21 mg/dL (7-18) H Creatinine 1.4 MG/DL (0.55-1.30) H Estimat Glomerular Filtration Rate mL/min (>60) Glucose Level 165 MG/DL (74-106) #H Calcium Level 9.5 MG/DL (8.5-10.1) Height (Feet): 5 Height (Inches): 2.00 Weight (Pounds): 127 Medications Current Medications Medications (Trade) Dose Ordered Sig/Juan Route PRN Reason Start Time Stop Time Status Last Admin Dose Admin Acetaminophen (Tylenol) 650 mg Q4H PRN ORAL Mild Pain (Pain Scale 1-3) 02/04/18 12:30 03/03/18 12:29 Amlodipine Besylate (Norvasc) 10 mg DAILY ORAL 02/05/18 09:00 03/05/18 08:59 Amylase/Lipase/ Protease (Pancrease) 2 ea THREE TIMES A DAY ORAL 02/04/18 13:00 03/03/18 12:59 02/05/18 08:27 Aspirin (Ecotrin) 81 mg DAILY ORAL 02/05/18 09:00 03/03/18 08:59 02/05/18 08:29 Atenolol (Tenormin) 50 mg DAILY ORAL 02/05/18 09:00 03/05/18 06:14 Atorvastatin Calcium (Lipitor) 40 mg QHS ORAL 02/04/18 21:00 03/03/18 20:59 02/04/18 21:06 Clonidine HCl (Catapres Tab) 0.1 mg Q6H PRN ORAL SBP > 160mmHg 02/04/18 14:30 03/03/18 08:29 02/05/18 00:12 Dextrose (Dextrose 50%) 25 ml STAT PRN IV Hypoglycemia 02/04/18 12:00 03/03/18 11:59 Dextrose (Dextrose 50%) 50 ml STAT PRN IV Hypoglycemia 02/04/18 12:00 03/03/18 11:59 Diphenhydramine HCl (Benadryl) 25 mg Q6H PRN ORAL Itching/Pruritis 02/04/18 12:31 03/03/18 12:30 Docusate Sodium (Colace) 100 mg EVERY 12 HOURS ORAL 02/04/18 21:00 03/03/18 08:59 Dorzolamide/ Timolol (Cosopt) 1 drop TWICE A DAY BOTH EYES 02/04/18 18:00 03/03/18 10:29 02/05/18 08:29 Doxazosin Mesylate (Cardura) 2 mg DAILY ORAL 02/05/18 09:00 03/06/18 08:59 02/05/18 08:28 Enoxaparin Sodium (Lovenox) 40 mg Q24H SUBQ 02/05/18 09:00 03/03/18 08:59 02/05/18 08:31 Famotidine (Pepcid) 40 mg DAILY ORAL 02/05/18 09:00 03/03/18 08:59 02/05/18 08:29 Folic Acid (Folate) 1 mg DAILY ORAL 02/05/18 09:00 03/03/18 09:59 02/05/18 08:28 Glimepiride (Amaryl) 2 mg ACBREAKFAST ORAL 02/05/18 06:30 03/06/18 06:29 02/05/18 06:06 Insulin Aspart (NovoLOG) BEFORE MEALS AND HS SUBQ 02/04/18 11:30 03/03/18 11:29 02/05/18 11:19 Insulin Detemir (Levemir) 10 units BEDTIME SUBQ 02/04/18 21:00 03/03/18 20:59 02/04/18 21:08 Iopamidol (Isovue-300 100ml) 100 ml NOW PRN INJ Radiology Procedure 02/05/18 05:15 Mirtazapine (Remeron) 15 mg BEDTIME ORAL 02/04/18 21:00 03/03/18 20:59 02/04/18 21:06 Ondansetron HCl (Zofran) 4 mg Q6H PRN IVP Nausea & Vomiting 02/04/18 14:00 03/03/18 07:59 Pantoprazole (Protonix) 40 mg DAILY ORAL 02/05/18 09:00 03/04/18 08:59 02/05/18 08:28 Sodium Chloride 1,000 ml @ 125 mls/hr Q8H IV 02/04/18 12:33 03/06/18 12:32 02/04/18 13:08 Sucralfate (Carafate) 1 gm BID ORAL 02/04/18 18:00 03/03/18 17:59 02/05/18 08:27 Thiamine HCl (Vitamin B1) 100 mg DAILY ORAL 02/05/18 09:00 03/03/18 09:59 02/05/18 08:27 Tramadol HCl (Ultram) 50 mg Q6H PRN ORAL For Pain 02/04/18 12:30 02/11/18 12:29 02/05/18 08:46 Zolpidem Tartrate (Ambien) 5 mg HSPRN PRN ORAL Insomnia 02/04/18 21:00 02/10/18 20:59 02/04/18 22:18 Assessment/Plan Assessment/Plan encephalopathy due to [facility] MDD failure to thrive Remeron 15mg po qhs provided ro/Cielo Villarreal MD Feb 05, 2018 11:26
--- NOTE | 2018-02-05 11:29 | Cardiology Progress Note ---
Assessment/Plan Status: stable Assessment/Plan ASSESSMENT (1) H pylori ulcer (2) Vomiting (3) Intractable abdominal pain (4) Diabetes mellitus type 2, uncontrolled, with complications (5) Chronic Pancreatitis (6) Alcohol abuse (7) Gastric ulcer (8) Common bile duct dilation (9) TACHYCARDIA - resolved (10) Hypertension (11) Hyperlipidemia PLAN -EGD with gastritis -Tachycardia resolved, no indication for further treatment, likely etiology dehydration/hemoconcentration -BP control, atenolol, norvasc 10 mg, added cardura - better controlled -Outpatient stress test -BID PPI + carafate -Alcohol cessation -Dispo planning Subjective Cardiovascular: Reports: no symptoms Respiratory: Reports: no symptoms Gastrointestinal/Abdominal: Reports: no symptoms Genitourinary: Reports: no symptoms Subjective No acute events, bradycardia resolved, BP improved on current regimen. Tolerating PO, creatinine improved today, had BM and ambulated in halls. Objective Last 24 Hour Vital Signs Date Time Temp Pulse Resp B/P (MAP) Pulse Ox O2 Delivery O2 Flow Rate FiO2 02/05/18 09:45 97.2 02/05/18 09:00 Room Air 02/05/18 08:46 97.2 02/05/18 08:35 97.2 85 20 99/61 (74) 100 97.2 02/05/18 04:00 97.9 77 19 111/49 (69) 98 97.9 02/05/18 00:12 163/99 02/05/18 00:00 97.7 82 20 163/99 (120) 99 97.7 02/04/18 21:06 97.9 02/04/18 21:00 Room Air 02/04/18 20:00 97.9 81 18 139/79 (99) 98 97.9 02/04/18 16:15 96.9 86 18 143/93 (110) 100 96.9 02/04/18 12:11 98.6 86 20 110/79 (89) 98 98.6 General Appearance: no apparent distress, alert EENT: PERRL/EOMI, normal ENT inspection Neck: non-tender, normal alignment, supple Rhythm: NSR Cardiovascular: normal peripheral pulses, normal rate, regular rhythm Respiratory/Chest: chest wall non-tender, lungs clear Abdomen: normal bowel sounds, non tender Extremities: normal range of motion, non-tender Neurologic: solderer assembly repair II-XII grossly normal, no motor/sensory deficits Intake and Output 02/04/18 02/05/18 19:00 07:00 Intake Total 990 ml 570 ml Balance 990 ml 570 ml Intake Oral 240 ml 320 ml IV Total 750 ml 250 ml # Voids 3 2 # Bowel Movements 2 3 Laboratory Tests Test 02/05/18 06:40 White Blood Count 5.9 K/UL (4.8-10.8) Red Blood Count 5.23 M/UL (4.20-5.40) Hemoglobin 15.1 G/DL (12.0-16.0) Hematocrit 44.2 % (37.0-47.0) Mean Corpuscular Volume 85 FL (80-99) Mean Corpuscular Hemoglobin 28.8 PG (27.0-31.0) Mean Corpuscular Hemoglobin Concent 34.1 G/DL (32.0-36.0) Red Cell Distribution Width 11.5 % (11.6-14.8) L Platelet Count 279 K/UL (150-450) Mean Platelet Volume 6.4 FL (6.5-10.1) L Neutrophils (%) (Auto) 49.9 % (45.0-75.0) Lymphocytes (%) (Auto) 37.8 % (20.0-45.0) Monocytes (%) (Auto) 8.6 % (1.0-10.0) Eosinophils (%) (Auto) 2.3 % (0.0-3.0) Basophils (%) (Auto) 1.3 % (0.0-2.0) Sodium Level 136 MMOL/L (136-145) Potassium Level 3.5 MMOL/L (3.5-5.1) Chloride Level 102 MMOL/L (98-107) Carbon Dioxide Level 24 MMOL/L (21-32) Anion Gap 10 mmol/L (5-15) Blood Urea Nitrogen 21 mg/dL (7-18) H Creatinine 1.4 MG/DL (0.55-1.30) H Estimat Glomerular Filtration Rate mL/min (>60) Glucose Level 165 MG/DL (74-106) #H Calcium Level 9.5 MG/DL (8.5-10.1) Mukesh eLggett M.D. Feb 05, 2018 11:29
[2018-02-05 12:26] VITALS: BP 138/86
[2018-02-05 15:46] VITALS: BP 148/83
[2018-02-05 20:52] VITALS: BP 93/51
[2018-02-05] MEDS: Atorvastatin 20mg tab ORAL SCH (20:58)
[2018-02-05] MEDS: Levemir Flexpen SUBQ SCH (21:02)
[2018-02-06] VITALS: BP 131/97
[2018-02-06] MEDS: Zolpidem 5mg tab ORAL PRN ×2 (00:27→22:32)
[2018-02-06] MEDS: Glimepiride 1mg tab ORAL SCH (06:42)
[2018-02-06] MEDS: NovoLOG Insulin Flexpen SUBQ SCH ×4 (06:42→21:01)
[2018-02-06 08:02] VITALS: BP 128/94
--- NOTE | 2018-02-06 08:09 | Nephrology Progress Note ---
Assessment/Plan Assessment/Plan A/P 1. ABD Pain- resolved. DC to SNF -gastritis - protonix and sucrafate 2. HTN- Atenolol, clonidine norvasc. Stable at goal 3. DM- on ISS and levemir 4. DVT prophylaxsis- lovenox 5. REZA- Cr had improved yesterday. Pending DC today - poss contrast Nep, post CT with IV contrast - BMP later this week as outpt DC patient today [facility] Subjective Date patient seen: Feb 06, 2018 Time patient seen: 08:07 ROS Limited/Unobtainable: Yes Allergies: Coded Allergies: No Known Allergies (Unverified , 10/15/12) Subjective Patient stable. Improved and stable. To be DCed today Objective Last 24 Hour Vital Signs Date Time Temp Pulse Resp B/P (MAP) Pulse Ox O2 Delivery O2 Flow Rate FiO2 02/06/18 00:00 98.0 91 20 131/97 (108) 99 98.0 02/05/18 21:00 Room Air 02/05/18 20:52 97.7 88 19 93/51 (65) 99 97.7 02/05/18 18:32 98.4 02/05/18 17:33 98.4 02/05/18 15:46 98.4 90 18 148/83 (104) 99 98.4 02/05/18 12:26 97.9 91 18 138/86 (103) 98 97.9 02/05/18 09:00 Room Air 02/05/18 08:46 97.2 02/05/18 08:35 97.2 85 20 99/61 (74) 100 97.2 Intake and Output 02/05/18 02/06/18 19:00 07:00 Intake Total 855 ml 280 ml Balance 855 ml 280 ml Intake Oral 480 ml 280 ml IV Total 375 ml # Voids 2 2 # Bowel Movements 1 1 Height (Feet): 5 Height (Inches): 2.00 Weight (Pounds): 127 General Appearance: WD/WN, no apparent distress EENT: normal ENT inspection Neck: normal alignment, supple Cardiovascular: normal rate, regular rhythm Respiratory/Chest: lungs clear, normal breath sounds Abdomen: non tender, soft Edema: no edema noted Arm (L), no edema noted Arm (R), no edema noted Leg (L), no edema noted Leg (R), no edema noted Pedal (L), no edema noted Pedal (R), no edema noted Generalized Maynor Weathers M.D. Feb 06, 2018 08:09
[2018-02-06] MEDS: Cosopt Opth Soln 10 mL Btl BOTH EYES SCH ×2 (08:15→17:55)
[2018-02-06] MEDS: Pancrease Cap ORAL SCH ×3 (08:15→17:57)
[2018-02-06] MEDS: Sucralfate 1gm tab ORAL SCH ×2 (08:15→17:55)
[2018-02-06] MEDS: Doxazosin 4mg tab ORAL SCH (08:15)
[2018-02-06] MEDS: Docusate 100mg cap ORAL SCH ×2 (08:16→20:51)
[2018-02-06] MEDS: Aspirin EC 81mg tab ORAL SCH (08:16)
[2018-02-06] MEDS: Thiamine 100mg tab ORAL SCH (08:19)
[2018-02-06] MEDS: Enoxaparin 40mg Inj SUBQ SCH (08:21)
[2018-02-06] MEDS: traMADol 50mg tab ORAL PRN ×2 (10:52→17:58)
[2018-02-06 11:52] VITALS: BP 150/97
--- NOTE | 2018-02-06 13:40 | General Surgery Progress Note ---
General Surgery-Progress Note Subjective Symptoms: improved, tolerating diet, passing flatus, BM Objective Last 24 Hour Vital Signs Date Time Temp Pulse Resp B/P (MAP) Pulse Ox O2 Delivery O2 Flow Rate FiO2 02/06/18 11:52 99.1 110 20 150/97 (114) 100 99.1 02/06/18 11:51 97.7 02/06/18 09:00 Room Air 02/06/18 08:20 109 128/94 02/06/18 08:16 91 131/97 02/06/18 08:02 97.7 109 20 128/94 (105) 99 97.7 02/06/18 00:00 98.0 91 20 131/97 (108) 99 98.0 02/05/18 21:00 Room Air 02/05/18 20:52 97.7 88 19 93/51 (65) 99 97.7 02/05/18 17:33 98.4 02/05/18 15:46 98.4 90 18 148/83 (104) 99 98.4 I&O Intake and Output 02/05/18 02/06/18 19:00 07:00 Intake Total 855 ml 280 ml Balance 855 ml 280 ml Intake Oral 480 ml 280 ml IV Total 375 ml # Voids 2 2 # Bowel Movements 1 1 Wound: other Drains: none Cardiovascular: RSR Respiratory: clear Abdomen: soft, non-tender, present bowel sounds Extremities: no cyanosis Plan Problems: (1) Abdominal pain Assessment & Plan: chronic pancreatitis. etiology unknown. denies heavy etoh use. CT reviewed an atrophic pancreas noted with dilated ducts. no masses noted. no acute surgical intervention indicated symptomatic treatment diet as tolerated d/c planning will follow with recs. thank you (2) Pancreatitis Ricki Gómez Feb 06, 2018 13:40
--- NOTE | 2018-02-06 13:45 | General Progress Note ---
Assessment/Plan Assessment/Plan encephalopathy due to [facility] MDD failure to thrive Remeron 15mg po qhs provided ro/st Subjective Date patient seen: Feb 06, 2018 Neurologic/Psychiatric: Reports: anxiety, depressed Allergies: Coded Allergies: No Known Allergies (Unverified , 10/15/12) Objective Last 24 Hour Vital Signs Date Time Temp Pulse Resp B/P (MAP) Pulse Ox O2 Delivery O2 Flow Rate FiO2 02/06/18 11:52 99.1 110 20 150/97 (114) 100 99.1 02/06/18 11:51 97.7 02/06/18 09:00 Room Air 02/06/18 08:20 109 128/94 02/06/18 08:16 91 131/97 02/06/18 08:02 97.7 109 20 128/94 (105) 99 97.7 02/06/18 00:00 98.0 91 20 131/97 (108) 99 98.0 02/05/18 21:00 Room Air 02/05/18 20:52 97.7 88 19 93/51 (65) 99 97.7 02/05/18 17:33 98.4 02/05/18 15:46 98.4 90 18 148/83 (104) 99 98.4 Intake and Output 02/05/18 02/06/18 19:00 07:00 Intake Total 855 ml 280 ml Balance 855 ml 280 ml Intake Oral 480 ml 280 ml IV Total 375 ml # Voids 2 2 # Bowel Movements 1 1 Height (Feet): 5 Height (Inches): 2.00 Weight (Pounds): 127 General Appearance: no apparent distress, alert Cielo Escalante MD Feb 06, 2018 13:45
--- NOTE | 2018-02-06 14:39 | GI Progress Note ---
Assessment/Plan Problems: (1) Vomiting ICD Codes: R11.10 - Vomiting, unspecified SNOMED: 763746209 (2) Intractable abdominal pain ICD Codes: R10.9 - Unspecified abdominal pain SNOMED: 89895111 (3) Pancreatic duct dilated ICD Codes: K86.89 - Other specified diseases of pancreas SNOMED: 520508975 (4) Acute alcoholic pancreatitis ICD Codes: K85.2 - Alcohol induced acute pancreatitis SNOMED: 286390870 (5) Abnormal liver function test ICD Codes: R79.89 - Other specified abnormal findings of blood chemistry SNOMED: 608503022 (6) Abdominal pain ICD Codes: R10.9 - Unspecified abdominal pain SNOMED: 42215607 (7) Nausea and vomiting ICD Codes: R11.2 - Nausea with vomiting, unspecified SNOMED: 29660055 Status: stable, unchanged Status Narrative Discussed with Dr. Marin. Assessment/Plan Assessment (1) H pylori gastritis (2) Vomiting (3) Intractable abdominal pain (4) Diabetes mellitus type 2, uncontrolled, with complications (5) Pancreatitis (6) Alcohol abuse (7) Gastric ulcer (8) Common bile duct dilation Plan abd ultrasound noted PO as tolerated ppi + carafate pancrease reglan prn for N/V pain mgmt fu labs outpatient EUS okay for DC per GI standpoint Subjective Subjective still has abdominal pain Objective Last 24 Hour Vital Signs Date Time Temp Pulse Resp B/P (MAP) Pulse Ox O2 Delivery O2 Flow Rate FiO2 02/06/18 11:52 99.1 110 20 150/97 (114) 100 99.1 02/06/18 11:51 97.7 02/06/18 09:00 Room Air 02/06/18 08:20 109 128/94 02/06/18 08:16 91 131/97 02/06/18 08:02 97.7 109 20 128/94 (105) 99 97.7 02/06/18 00:00 98.0 91 20 131/97 (108) 99 98.0 02/05/18 21:00 Room Air 02/05/18 20:52 97.7 88 19 93/51 (65) 99 97.7 02/05/18 17:33 98.4 02/05/18 15:46 98.4 90 18 148/83 (104) 99 98.4 Intake and Output 02/05/18 02/06/18 19:00 07:00 Intake Total 855 ml 280 ml Balance 855 ml 280 ml Intake Oral 480 ml 280 ml IV Total 375 ml # Voids 2 2 # Bowel Movements 1 1 Height (Feet): 5 Height (Inches): 2.00 Weight (Pounds): 127 General Appearance: WD/WN, no apparent distress, alert Cardiovascular: normal rate Respiratory/Chest: normal breath sounds, no respiratory distress Abdominal Exam: normal bowel sounds, non tender, soft Extremities: normal range of motion, non-tender Lidia Woodard [employer]ERK Feb 06, 2018 14:39
[2018-02-06 16:12] VITALS: BP 149/88
[2018-02-06 19:37] VITALS: BP 146/85
[2018-02-06] MEDS: Atorvastatin 20mg tab ORAL SCH (20:59)
[2018-02-06] MEDS: Levemir Flexpen SUBQ SCH (21:02)
--- NOTE | 2018-02-06 22:29 | Cardiology Progress Note ---
Assessment/Plan Status: stable Assessment/Plan ASSESSMENT (1) H pylori ulcer (2) Vomiting (3) Intractable abdominal pain (4) Diabetes mellitus type 2, uncontrolled, with complications (5) Chronic Pancreatitis (6) Alcohol abuse (7) Gastric ulcer (8) Common bile duct dilation (9) TACHYCARDIA - resolved (10) Hypertension (11) Hyperlipidemia PLAN -EGD with gastritis -Tachycardia resolved, no indication for further treatment, likely etiology dehydration/hemoconcentration -BP control, atenolol, norvasc 10 mg, added cardura - better controlled -Outpatient stress test -BID PPI + carafate -Alcohol cessation -Dispo planning Subjective Cardiovascular: Reports: no symptoms Respiratory: Reports: no symptoms Gastrointestinal/Abdominal: Reports: no symptoms Genitourinary: Reports: no symptoms Subjective No acute events, bradycardia resolved, BP improved on current regimen. Tolerating PO, creatinine improved today, had BM and ambulated in halls. Objective Last 24 Hour Vital Signs Date Time Temp Pulse Resp B/P (MAP) Pulse Ox O2 Delivery O2 Flow Rate FiO2 02/06/18 21:00 Room Air 02/06/18 19:37 97.9 94 17 146/85 (105) 99 97.9 02/06/18 18:57 98.1 02/06/18 17:58 98.1 02/06/18 16:12 98.1 102 20 149/88 (108) 100 98.1 02/06/18 11:52 99.1 110 20 150/97 (114) 100 99.1 02/06/18 09:00 Room Air 02/06/18 08:20 109 128/94 02/06/18 08:16 91 131/97 02/06/18 08:02 97.7 109 20 128/94 (105) 99 97.7 02/06/18 00:00 98.0 91 20 131/97 (108) 99 98.0 General Appearance: no apparent distress, alert EENT: PERRL/EOMI, normal ENT inspection Neck: non-tender, normal alignment Rhythm: NSR Cardiovascular: normal peripheral pulses, normal rate, regular rhythm Respiratory/Chest: chest wall non-tender, lungs clear Abdomen: normal bowel sounds, non tender Extremities: normal range of motion, non-tender Neurologic: olericulturist II-XII grossly normal Intake and Output 02/05/18 02/06/18 19:00 07:00 Intake Total 855 ml 280 ml Balance 855 ml 280 ml Intake Oral 480 ml 280 ml IV Total 375 ml # Voids 2 2 # Bowel Movements 1 1 Mukesh Leggett MD Feb 06, 2018 22:29
[2018-02-07 00:44] VITALS: BP 150/92
[2018-02-07 04:19] VITALS: BP 142/90
[2018-02-07] MEDS: NovoLOG Insulin Flexpen SUBQ SCH ×2 (06:22→11:30)
[2018-02-07] MEDS: Glimepiride 1mg tab ORAL SCH (06:23)
[2018-02-07 07:49] VITALS: BP 135/76
[2018-02-07] MEDS: Docusate 100mg cap ORAL SCH (08:42)
[2018-02-07] MEDS: Thiamine 100mg tab ORAL SCH (08:42)
[2018-02-07] MEDS: Aspirin EC 81mg tab ORAL SCH (08:42)
[2018-02-07] MEDS: Dronabinol 2.5mg Cap ORAL SCH ×2 (08:42→13:19)
[2018-02-07] MEDS: Pancrease Cap ORAL SCH ×2 (08:42→13:19)
[2018-02-07] MEDS: Cosopt Opth Soln 10 mL Btl BOTH EYES SCH (08:42)
[2018-02-07] MEDS: Doxazosin 4mg tab ORAL SCH (08:43)
[2018-02-07] MEDS: Sucralfate 1gm tab ORAL SCH (08:43)
[2018-02-07] MEDS: traMADol 50mg tab ORAL PRN ×3 (08:48→09:03)
[2018-02-07] MEDS: Enoxaparin 40mg Inj SUBQ SCH (09:00)
--- NOTE | 2018-02-07 09:19 | Nephrology Progress Note ---
Assessment/Plan Assessment/Plan A/P 1. ABD Pain- resolved. DC to SNF -gastritis, protonix and sucrafate 2. HTN- Atenolol, clonidine norvasc. Stable at goal 3. DM- on ISS and levemir 4. DVT prophylaxsis- lovenox 5. REZA- AM labs pending. IVFs stopped - poss contrast Nep, post CT with IV contrast DC patient [facility] Subjective Date patient seen: Feb 07, 2018 Time patient seen: 09:17 ROS Limited/Unobtainable: No Allergies: Coded Allergies: No Known Allergies (Unverified , 10/15/12) All Systems: reviewed and negative except above Subjective Patient stable. Feels well. Awaiting DC Objective Last 24 Hour Vital Signs Date Time Temp Pulse Resp B/P (MAP) Pulse Ox O2 Delivery O2 Flow Rate FiO2 02/07/18 09:00 Room Air 02/07/18 09:00 103 135/76 02/07/18 08:43 103 135/76 02/07/18 07:49 98.6 103 18 135/76 (95) 96 98.6 02/07/18 04:30 99 99 02/07/18 04:19 98.1 111 16 142/90 (107) 96 98.1 02/07/18 00:44 97.5 98 16 150/92 (111) 95 97.5 02/06/18 21:00 Room Air 02/06/18 19:37 97.9 94 17 146/85 (105) 99 97.9 02/06/18 18:57 98.1 02/06/18 17:58 98.1 02/06/18 16:12 98.1 102 20 149/88 (108) 100 98.1 02/06/18 11:52 99.1 110 20 150/97 (114) 100 99.1 Intake and Output 02/06/18 02/07/18 19:00 07:00 Intake Total 485 ml 1125 ml Balance 485 ml 1125 ml Intake Oral 360 ml IV Total 125 ml 1125 ml # Voids 3 # Bowel Movements 1 1 Height (Feet): 5 Height (Inches): 2.00 Weight (Pounds): 145 General Appearance: WD/WN, no apparent distress EENT: PERRL/EOMI Neck: non-tender, normal alignment Cardiovascular: normal rate, regular rhythm Respiratory/Chest: lungs clear, normal breath sounds Abdomen: non tender, soft Edema: no edema noted Arm (L), no edema noted Arm (R), no edema noted Leg (L), no edema noted Leg (R), no edema noted Pedal (L), no edema noted Pedal (R), no edema noted Generalized Maynor Weathers MD Feb 07, 2018 09:19
[2018-02-07] MEDS ORDERED: Tubing IV Secondary IV ONE (10:18)
[2018-02-07 10:35] LABS: BASOPHILS % (AUTO) 1.3 % (0.0-2.0); EOSINOPHILS % (AUTO) 1.8 % (0.0-3.0); HEMATOCRIT 40.3 % (37.0-47.0); HEMOGLOBIN 13.7 G/DL (12.0-16.0); LYMPHOCYTES % (AUTO) 40.1 % (20.0-45.0); MEAN CORPUSCULAR VOLUME 83 FL (80-99); MONOCYTES % (AUTO) 13.7 % (1.0-10.0); NEUTROPHILS % (AUTO) 43.1 % (45.0-75.0); PLATELET COUNT 285 K/UL (150-450); RED BLOOD COUNT 4.85 M/UL (4.20-5.40); RED CELL DISTRIBUTION WIDTH 10.9 % (11.6-14.8)
[2018-02-07 10:48] LABS: ANION GAP 12 mmol/L (5-15); BLOOD UREA NITROGEN 10 mg/dL (7-18); CALCIUM 9.4 MG/DL (8.5-10.1); CARBON DIOXIDE 21 MMOL/L (21-32); CHLORIDE 104 MMOL/L (98-107); CREATININE 0.7 MG/DL (0.55-1.30); POTASSIUM 3.3 MMOL/L (3.5-5.1); SODIUM 137 MMOL/L (136-145)
[2018-02-07 11:10] VITALS: BP 95/56
--- NOTE | 2018-02-07 12:36 | GI Progress Note ---
Assessment/Plan Problems: (1) Vomiting ICD Codes: R11.10 - Vomiting, unspecified SNOMED: 103258203 (2) Intractable abdominal pain ICD Codes: R10.9 - Unspecified abdominal pain SNOMED: 00350582 (3) Pancreatic duct dilated ICD Codes: K86.89 - Other specified diseases of pancreas SNOMED: 663678181 (4) Acute alcoholic pancreatitis ICD Codes: K85.2 - Alcohol induced acute pancreatitis SNOMED: 684174478 (5) Abnormal liver function test ICD Codes: R79.89 - Other specified abnormal findings of blood chemistry SNOMED: 929807766 (6) Abdominal pain ICD Codes: R10.9 - Unspecified abdominal pain SNOMED: 97070307 (7) Nausea and vomiting ICD Codes: R11.2 - Nausea with vomiting, unspecified SNOMED: 96386655 Status: stable Status Narrative Discussed with Dr. Marin. Assessment/Plan Assessment (1) gastritis (2) Vomiting (3) Intractable abdominal pain (4) Diabetes mellitus type 2, uncontrolled, with complications (5) Pancreatitis (6) Alcohol abuse (7) Gastric ulcer (8) Common bile duct dilation abd ultrasound noted Bx negative for H. Pylori Plan PO as tolerated ppi + carafate Pancrease reglan prn for N/V pain mgmt fu labs outpatient EUS okay for DC per GI standpoint The patient was seen and examined at bedside and all new and available data was reviewed in the patients chart. I agree with the above findings, impression and plan. (Patient seen earlier today. Signature stamp does not reflect patient encounter time.). - Alexandro Marin MD Subjective Subjective still has abdominal pain Objective Last 24 Hour Vital Signs Date Time Temp Pulse Resp B/P (MAP) Pulse Ox O2 Delivery O2 Flow Rate FiO2 02/07/18 11:10 96.4 88 20 95/56 (69) 97 96.4 02/07/18 09:00 Room Air 02/07/18 09:00 103 135/76 02/07/18 08:43 103 135/76 02/07/18 07:49 98.6 103 18 135/76 (95) 96 98.6 02/07/18 04:30 99 99 02/07/18 04:19 98.1 111 16 142/90 (107) 96 98.1 02/07/18 00:44 97.5 98 16 150/92 (111) 95 97.5 02/06/18 21:00 Room Air 02/06/18 19:37 97.9 94 17 146/85 (105) 99 97.9 02/06/18 18:57 98.1 02/06/18 17:58 98.1 02/06/18 16:12 98.1 102 20 149/88 (108) 100 98.1 Intake and Output 02/06/18 02/07/18 19:00 07:00 Intake Total 485 ml 1125 ml Balance 485 ml 1125 ml Intake Oral 360 ml IV Total 125 ml 1125 ml # Voids 3 # Bowel Movements 1 1 Laboratory Tests Test 02/07/18 10:20 White Blood Count 5.0 K/UL (4.8-10.8) Red Blood Count 4.85 M/UL (4.20-5.40) Hemoglobin 13.7 G/DL (12.0-16.0) Hematocrit 40.3 % (37.0-47.0) Mean Corpuscular Volume 83 FL (80-99) Mean Corpuscular Hemoglobin 28.2 PG (27.0-31.0) Mean Corpuscular Hemoglobin Concent 33.9 G/DL (32.0-36.0) Red Cell Distribution Width 10.9 % (11.6-14.8) L Platelet Count 285 K/UL (150-450) Mean Platelet Volume 6.2 FL (6.5-10.1) L Neutrophils (%) (Auto) 43.1 % (45.0-75.0) L Lymphocytes (%) (Auto) 40.1 % (20.0-45.0) Monocytes (%) (Auto) 13.7 % (1.0-10.0) H Eosinophils (%) (Auto) 1.8 % (0.0-3.0) Basophils (%) (Auto) 1.3 % (0.0-2.0) Sodium Level 137 MMOL/L (136-145) Potassium Level 3.3 MMOL/L (3.5-5.1) L Chloride Level 104 MMOL/L (98-107) Carbon Dioxide Level 21 MMOL/L (21-32) Anion Gap 12 mmol/L (5-15) Blood Urea Nitrogen 10 mg/dL (7-18) Creatinine 0.7 MG/DL (0.55-1.30) Estimat Glomerular Filtration Rate mL/min (>60) Glucose Level 107 MG/DL (74-106) H Calcium Level 9.4 MG/DL (8.5-10.1) Height (Feet): 5 Height (Inches): 2.00 Weight (Pounds): 145 General Appearance: WD/WN, no apparent distress, alert Cardiovascular: normal rate Respiratory/Chest: normal breath sounds, no respiratory distress Abdominal Exam: normal bowel sounds, non tender, soft Extremities: normal range of motion, non-tender Lidia Woodard NP Feb 07, 2018 12:36
[2018-02-07] MEDS ORDERED: NORVASC10 MG ORAL (14:15)
[2018-02-07] MEDS ORDERED: CARAFATE1 G1 ORAL (14:16)
[2018-02-07] MEDS ORDERED: PROTONIX40 MG ORAL (14:16)
--- NOTE | 2018-02-07 14:43 | General Progress Note ---
Assessment/Plan Status: stable Assessment/Plan encephalopathy due to [facility] [place] failure to thrive Remeron 15mg po qhs provided ro/st Subjective Date patient seen: Feb 07, 2018 Neurologic/Psychiatric: Reports: anxiety, depressed Allergies: Coded Allergies: No Known Allergies (Unverified , 10/15/12) Objective Last 24 Hour Vital Signs Date Time Temp Pulse Resp B/P (MAP) Pulse Ox O2 Delivery O2 Flow Rate FiO2 02/07/18 11:10 96.4 88 20 95/56 (69) 97 96.4 02/07/18 09:00 Room Air 02/07/18 09:00 103 135/76 02/07/18 08:43 103 135/76 02/07/18 07:49 98.6 103 18 135/76 (95) 96 98.6 02/07/18 04:30 99 99 02/07/18 04:19 98.1 111 16 142/90 (107) 96 98.1 02/07/18 00:44 97.5 98 16 150/92 (111) 95 97.5 02/06/18 21:00 Room Air 02/06/18 19:37 97.9 94 17 146/85 (105) 99 97.9 02/06/18 18:57 98.1 02/06/18 17:58 98.1 02/06/18 16:12 98.1 102 20 149/88 (108) 100 98.1 Intake and Output 02/06/18 02/07/18 19:00 07:00 Intake Total 485 ml 1125 ml Balance 485 ml 1125 ml Intake Oral 360 ml IV Total 125 ml 1125 ml # Voids 3 # Bowel Movements 1 1 Laboratory Tests 02/07/18 10:20: White Blood Count 5.0, Red Blood Count 4.85, Hemoglobin 13.7, Hematocrit 40.3, Mean Corpuscular Volume 83, Mean Corpuscular Hemoglobin 28.2, Mean Corpuscular Hemoglobin Concent 33.9, Red Cell Distribution Width 10.9L, Platelet Count 285, Mean Platelet Volume 6.2L, Neutrophils (%) (Auto) 43.1L, Lymphocytes (%) (Auto) 40.1, Monocytes (%) (Auto) 13.7H, Eosinophils (%) (Auto) 1.8, Basophils (%) ( Auto) 1.3, Sodium Level 137, Potassium Level 3.3L, Chloride Level 104, Carbon Dioxide Level 21, Anion Gap 12, Blood Urea Nitrogen 10, Creatinine 0.7, Estimat Glomerular Filtration Rate , Glucose Level 107H, Calcium Level 9.4 Height (Feet): 5 Height (Inches): 2.00 Weight (Pounds): 145 Cielo Escalante MD Feb 07, 2018 14:43
--- NOTE | 2018-02-07 16:39 | Cardiology Report ---
APPROVED REPORT EKG Measurement Heart [id number] Sinus rhythm with premature atrial complexes Minimal voltage criteria for LVH, may be normal variant Prolonged QT Abnormal ECG
--- NOTE | 2018-02-08 15:37 | Discharge Summary ---
Discharge Summary Discharge Summary _ DATE OF ADMISSION: 02/01/2018 DATE OF DISCHARGE: 02/07/2018 CONSULTANTS: Dr. Cielo Gómez BRIEF HOSPITAL COURSE: Patient is a 77-year-old female, who presented to the emergency room several days over the past week complaining of abdominal pain and vomiting. She has history of alcoholic pancreatitis and stated had not been drinking for more than a month. She noticed abdominal epigastric pain that was constant and radiating to the back. She had been consistently vomiting. She stated she had difficulty controlling her diabetes recently. She denied any chest pain or shortness of breath. Denied vomiting blood. On evaluation at ED, blood work showed elevated blood glucose and lactic acid. She had hyponatremia. She was given IV hydration. CT of the abdomen and pelvis showed atrophic pancreas with dilated pancreatic duct and multiple calcifications. There was dilatation of the common bile duct, no intrahepatic biliary dilatation. There was diverticulosis without evidence of diverticulitis. Moderate size right periumbilical fat-containing hernia. Lipase was 105. She was admitted for further workup. She was evaluated by GI and surgery. There was no acute surgical intervention indicated. She had prior to admission at [place] where she was found to have multiple gastric ulcers and had H. pylori which was treated. She was placed on proton pump inhibitors and Carafate. She had nausea and vomiting. She was given Reglan prn. She was placed on Pancrease. She was placed on clear liquid diet. She had abdominal ultrasound that was negative for gallstones or dilated ducts. On 02/02/2018, she underwent upper endoscopy. Patient had small duodenal bulb AVM which was too small to cauterize. Patient had evidence of diffuse gastritis. Random biopsy from antrum was obtained. There was no evidence of active GI bleed. No obvious ulcers seen. No evidence of any other pathology. She was resumed on diet. She was initially tachycardic. Heart rate improved. She was continued on atenolol, Norvasc and Cardura. Blood pressure improved. Blood sugar was monitored. She was placed on insulin sliding scale and Amaryl. Patient with elevated kidney function. Patient had acute kidney injury possibly contrast related. She was continued on IV fluids. Creatinine eventually normalized. She had waxing and waning of consciousness and had anxiety and depressed mood. She was diagnosed with encephalopathy due to general medical condition and failure to thrive. She was given Remeron at bedtime. She underwent physical therapy. Gastric biopsy was negative for H. pylori. She was eventually discharged to SNF. FINAL DIAGNOSES: Abdominal pain, resolved Chronic pancreatitis Hypertension Diabetes mellitus, uncontrolled Acute kidney injury Encephalopathy due to general medical condition Major depressive disorder Failure to thrive Pancreatic duct dilated Acute alcoholic pancreatitis Abnormal liver function test Nausea and vomiting Alcohol abuse Hyperlipidemia Tachycardia likely secondary from dehydration History of H. pylori infection with gastritis Common bile duct dilatation DISPOSITION: Patient was eventually discharged to [facility]. DISCHARGE MEDICATIONS: Refer to Discharge Medication List. I have been assigned to dictate discharge summary on this account, and I was not involved in the patient's management. Terri Valle NP Feb 08, 2018 15:36
== END 2018-02-07 15:45 | DRG 282 ==
LOC: EDUNIT# 04:57 → EDBD 04:57 → EMR 05:11 → 2E 06:55 → EDBEDREQSVC 07:26 → EDBEDREQ 07:27 → 2E 02-02 06:44 → 4W 02-04 11:45
PROC: 0DB78ZX Excision of Stomach, Pylorus, Via Natural or Artificial Opening Endoscopic, Diagnostic (ICD-10-PCS; principal; 2018-02-02 10:39)
DX: K85.20 Alcohol induced acute pancreatitis without necrosis or infection (principal); N17.9 Acute kidney failure, unspecified; G93.40 Encephalopathy, unspecified; K86.0 Alcohol-induced chronic pancreatitis; E11.65 Type 2 diabetes mellitus with hyperglycemia; I10 Essential (primary) hypertension; F32.9 Major depressive disorder, single episode, unspecified; R62.7 Adult failure to thrive; E86.0 Dehydration; R00.0 Tachycardia, unspecified; K86.89 Other specified diseases of pancreas; R79.89 Other specified abnormal findings of blood chemistry; F10.10 Alcohol abuse, uncomplicated; E78.5 Hyperlipidemia, unspecified; K31.819 Angiodysplasia of stomach and duodenum without bleeding; K29.70 Gastritis, unspecified, without bleeding; K57.90 Diverticulosis of intestine, part unspecified, without perforation or abscess without bleeding; F41.9 Anxiety disorder, unspecified
CPT/HCPCS: 36415; 74177; 76700; 80048; 80053; 80329; 81003; 82150; 82962; 82977; 83605; 83690; 83735; 84484; 85025; 85610; 85730; 87040; 87081; 93005; 94003; 94150; 99285; J1815; J2405; J8499; S5561

== ENCOUNTER 2018-02-20 10:03 | Outpatient (CLI) | payer MEDICARE, MEDICAID ==
[~2018-02-20 10:03] MED LIST changes: +CARAFATE1 G1 ORAL; +NORVASC10 MG ORAL
[2018-02-20 10:23] VITALS: BP 139/73
[2018-02-20] MEDS ORDERED: ARTIFICIAL TEA1 EAC2 OP (10:28)
[2018-02-20] MEDS ORDERED: NORCO 5-325 TA1 EACH ORAL (10:28)
[2018-02-20] MEDS ORDERED: BETIMOL5 M2 OP (10:28)
[2018-02-20] MEDS ORDERED: NITROSTAT0.4 M2 SL (10:28)
--- NOTE | 2018-02-20 18:27 | GI Progress Note ---
Assessment/Plan Problems: (1) Diabetes mellitus type 2, uncontrolled, with complications ICD Codes: E11.8 - Diabetes mellitus type 2, uncontrolled, with complications SNOMED: 029971772 (2) Abdominal pain (3) Mass of ampulla of Vater ICD Codes: K83.9 - Disease of biliary tract, unspecified SNOMED: 879268842 (4) Pancreatitis ICD Codes: K85.9 - Acute pancreatitis, unspecified SNOMED: 95840294 Status: stable Status Narrative Seen with Dr. Marin. Assessment/Plan Creon 36k 2 tabs TID plan for EUS on 02/26/18. - NPO @ MN day prior procedure explained to patient. labs to be drawn day of procedure >> CA19-9, IgG4, AMA Subjective Gastrointestinal/Abdominal: Reports: abdominal pain Objective Last 24 Hour Vital Signs Date Time Temp Pulse Resp B/P (MAP) Pulse Ox O2 Delivery O2 Flow Rate FiO2 02/20/18 10:23 98.0 81 18 139/73 98 98.0 General Appearance: WD/WN, no apparent distress, alert Cardiovascular: normal rate Respiratory/Chest: normal breath sounds, no respiratory distress Abdominal Exam: normal bowel sounds, non tender, soft Extremities: normal range of motion, non-tender Lidia Woodard [employer] Feb 20, 2018 18:27
[2018-02-22] MEDS ORDERED: CREON DR 36,001 EACH PO (12:24)
== END 2018-02-20 10:33 | disposition home or self-care (01) ==
LOC: PAN 10:03
DX: R10.9 Unspecified abdominal pain (principal); K83.9 Disease of biliary tract, unspecified; K85.90 Acute pancreatitis without necrosis or infection, unspecified; E11.8 Type 2 diabetes mellitus with unspecified complications
CPT/HCPCS: 99212

== ENCOUNTER 2018-03-07 08:26 | Day surgery (SDC) | payer MEDICARE, MEDICAID ==
[2018-03-07] VITALS (8 sets, daily range): BP systolic 113–146; BP diastolic 61–79
[~2018-03-07] VITALS: Ht 172.7 cm; Wt 67.1 kg
--- NOTE | 2018-03-07 06:41 | Anethesia Preoperative Eval ---
Anesthesia Pre-op PMH/ROS General Date of Evaluation: Mar 07, 2018 Time of Evaluation: 06:38 Anesthesiologist: flo ASA Score: ASA 4 Mallampati Score Class I : Soft palate, uvula, fauces, pillars visible Class II: Soft palate, uvula, fauces visible Class III: Soft palate, base of uvula visible Class IV: Only hard plate visible Mallampati Classification: Class I Surgeon: candie Diagnosis: abdominal pain Surgical Procedure: eus Anesthesia History: none Social History: alcohol use Family History: no anesthesia problems Allergies: Coded Allergies: No Known Allergies (Unverified , 03/07/18) Medications: see eMAR Past Medical History Cardiovascular: Reports: HTN, CAD, other - acute coronary syndrome, atherosclerotic heart disease, hyperlipidemia Pulmonary: Reports: asthma Gastrointestinal/Genitourinary: Reports: GERD, other - acute kidney injury Neurologic/Psychiatric: Reports: depression/anxiety Endocrine: Reports: DM Hematology/Immune: Reports: anemia Musculoskeletal/Integumentary: Reports: OA Other: obesity PSxH Narrative: ankle fx, knee fx Anesthesia Pre-op Phys. Exam Physician Exam Constitutional: NAD Neurologic: CN 2-12 intact Cardiovascular: RRR Respiratory: CTA Gastrointestinal: S/NT/ND Airway Exam Mallampati Score: Class II MO: full Neck: flexible TMD: 2fb ROM: full Teeth: missing Dentures: upper, lower Anesthesia Pre-op A/P Labs Labs Test 03/07/18 09:00 03/07/18 09:20 03/07/18 11:15 Risk Assessment & Plan Assessment: asa4 Plan: mac Status Change Before Surgery: No Pre-Antibiotics Drug: Dominique Ortega MD Mar 07, 2018 06:41
[~2018-03-07 08:26] MED LIST changes: +ARTIFICIAL TEA1 EAC2 OP; +Atropine Inj 1mg/10ml Syr IV PRN; +BETIMOL5 M2 OP; +CREON DR 36,001 EACH PO; +DiphenhydrAMINE 50mg/ml Inj IVP PRN; +Midazolam 2mg/2ml Inj IVP PRN; +NITROSTAT0.4 M2 SL; +NORCO 5-325 TA1 EACH ORAL; +fentaNYL 100 mcg/2 mL IV PRN
--- NOTE | 2018-03-07 10:11 | Short Stay Surgery H&P ---
History of Present Illness History of Present Illness Chief Complaint see recent office note HPI Sharath Alvarenga is a 77 year old female who was admitted on for Abdominal Pain Patient History Allergies: Coded Allergies: No Known Allergies (Unverified , 03/07/18) Relevant Family History: Patient reports no known family medical history. Medication History Scheduled Atorvastatin Calcium* (Lipitor*), 40 MG ORAL BEDTIME Cyclosporine (Restasis), 1 DROP BOTH EYES EVERY 12 HOURS, (Reported) Dextran 70/Hypromellose (Artificial Tears), 1 EACH OP BID, (Reported) Dorzolamide Hcl/Timolol Maleat (Cosopt Eye Drops), 10 ML OP BID, (Reported) Folic Acid* (Folic Acid*), 1 MG ORAL DAILY Glimepiride* (Glimepiride*), 2 MG ORAL BEFORE BREAKFAST Lipase/Protease/Amylase (Creon Dr 36,000 Units Capsule), 2 EACH PO TID, ( Reported) Metformin Hcl* (Metformin Hcl*), 1,000 MG ORAL TWICE A DAY Nitroglycerin (Nitrostat), 0.4 MG SL PRN, (Reported) Pantoprazole* (Protonix*), 40 MG ORAL DAILY, (Reported) Sucralfate* (Carafate*), 1 GM ORAL BID, (Reported) Thiamine Hcl (Vitamin B1*), 100 MG ORAL DAILY Timolol (Betimol), 5 ML OP BID, (Reported) Scheduled PRN Hydrocodone Bit/Acetaminophen 5-325* ([place] 5-325*), 1 TAB ORAL Q6H PRN for For Pain, (Reported) Discontinued Medications Amlodipine Besylate (Norvasc), 10 MG ORAL DAILY, (Reported) Discontinued Reason: Pt stopped taking med Aspirin* (Aspirin*), 81 MG NG DAILY Discontinued Reason: Pt stopped taking med Atenolol* (Tenormin*), 50 MG ORAL DAILY, (Reported) Discontinued Reason: Pt stopped taking med Walker (Ultra-Light Rollator), 1 EACH , (DME) Discontinued Reason: Pt stopped taking med Physical Exam Vital Signs Last Vital Signs Date Time Temp Pulse Resp B/P (MAP) Pulse Ox O2 Delivery O2 Flow Rate FiO2 03/07/18 09:32 Room Air 03/07/18 09:07 97.1 83 14 127/68 (87) 97 97.1 Labs Laboratory Tests Test 03/07/18 09:00 9/26/18 09:20 CA 19-9 Antigen Pending Immunoglobulin G Pending Immunoglobulin G1 Pending Immunoglobulin G2 Pending Immunoglobulin G3 Pending Immunoglobulin G4 Pending Anti-Mitochondrial Antibody Pending Plan Attestation Are the patient's medical conditions optimized for surgery? Alexandro Marin MD Mar 07, 2018 10:11
--- NOTE | 2018-03-07 10:11 | Pre-Procedure Note/Attestation ---
Pre-Procedure Note/Attestation Complete Prior to Procedure Planned Procedure: not applicable Procedure Narrative: egd/EUS Indications for Procedure Pre-Operative Diagnosis: pancreatitis Attestation I attest that I discussed the nature of the procedure; its benefits; risks and complications; and alternatives (and the risks and benefits of such alternatives ), prior to the procedure, with the patient (or the patient's legal metals sales representative). I attest that, if there was a reasonable possibility of needing a blood transfusion, the patient (or the patient's legal metals sales representative) was given the [facility] standardized written summary, pursuant to the Jim [place] Blood Safety Act ([place] Health and Safety Code # 1645, as amended). I attest that I re-evaluated the patient just prior to the surgery and that there has been no change in the patient's H&P, except as documented below: Alexandro Marin MD Mar 07, 2018 10:11
[2018-03-07] MEDS ORDERED: Lidocaine 1% MPF 10mg/ml 5ml ONE (10:30)
[2018-03-07] MEDS ORDERED: Propofol 200mg/20ml IV ONE (10:30)
--- NOTE | 2018-03-07 10:59 | Endoscopy Procedure Note ---
Endoscopy Procedure Note General Indication for Procedure: pancreatitis Procedures Performed: other - EUS Operative Findings/Diagnosis: same Specimen: none Pt Tolerated Procedure Well: Yes Estimated Blood Loss: none Anesthesia Anesthesiologist: azeem Anesthesia: MAC Inserted Devices Implant(s) used?: No GI Core Measures 50 yrs or older w/o bx or poly: Not Applicable 10yrs. F/U not recommended: Not Applicable Alexandro Marin MD Mar 07, 2018 10:59
--- NOTE | 2018-03-07 14:28 | Immediate Post-Op Evaluation ---
Immediate Post-Op Evalulation Immediate Post-Op Evalulation Procedure: egd/eus Date of Evaluation: Mar 07, 2018 Time of Evaluation: 11:15 IV Fluids: 300ml 0.9ns Blood Products: none Estimated Blood Loss: negligible Blood Pressure Systolic: 113 Blood Pressure Diastolic: 61 Pulse Rate: 82 Respiratory Rate: 18 O2 Sat by Pulse Oximetry: 100 Temperature (Fahrenheit): 97.3 Pain Score (1-10): 0 Nausea: No Vomiting: No Complications none Patient Status: awake, reacts, patent Hydration Status: adequate Drug: Dominique Ortega MD Mar 07, 2018 14:27
--- NOTE | 2018-03-07 14:29 | 48 Hour Post Anesthesia Eval ---
Post Anesthesia Evaluation Procedure: egd/eus Date of Evaluation: Mar 07, 2018 Time of Evaluation: 11:17 Blood Pressure Systolic: 118 0: 68 Pulse Rate: 82 Respiratory Rate: 18 Temperature (Fahrenheit): 97.3 O2 Sat by Pulse Oximetry: 100 Airway: patent Nausea: No Vomiting: No Pain Intensity: 0 Hydration Status: adequate Cardiopulmonary Status: stable Mental Status/LOC: patient returned to baseline Post-Anesthesia Complications: none Follow-up care needed: N/A Dominique Wilson MD Mar 07, 2018 14:29
--- NOTE | 2018-03-07 17:15 | Procedure Note ---
DATE OF PROCEDURE: 03/07/2018 SURGEON: Alexandro Marin M.D. ANESTHESIOLOGIST: Dr. Cannon. PROCEDURE: Endoscopic ultrasound. ANESTHESIA: Per Dr. Cannon. INSTRUMENT: Olympus adult EUS scope. INDICATION: Pancreatitis. The procedure, risks, benefits, and possible consequences, including hemorrhage, aspiration, perforation and infection, and alternative treatments, were explained to the patient/legal guardian by Dr. Alexandro Marin and the patient/legal guardian understood and accepted these risks. DESCRIPTION OF PROCEDURE: After informed consent was obtained and the patient was adequately sedated, Olympus EUS scope was advanced from the mouth to the second portion of the duodenum and pancreatic parenchyma was carefully examined through the gastroduodenal mucosa. Starting scanning at GE junction, celiac axis was evaluated. There was no obvious significant celiac axis lymphadenopathy. Pancreas looked very atrophic with severely dilated pancreatic duct to about 1.15 cm. There were multiple stones in the pancreatic duct and calcifications in the duct. Then, the scope was advanced to the antrum, duodenal bulb, and second portion of the duodenum where the gallbladder and head of the pancreas were examined. Gallbladder was mildly distended. There was some very minimal amount of sludge in the gallbladder. No obvious stone was seen. Common bile duct was mildly dilated to about 1 cm. There was some calcification in the head of the pancreas, exactly the same process that was going on in the body and tail, so the patient has chronic calcified pancreatitis with multiple stones in the pancreatic duct. The patient also had associated dilated common bile duct, possibly secondary to stricture from the chronic pancreatitis. SUMMARY OF FINDINGS: 1. Chronic pancreatitis with multiple stones in the pancreatic duct and calcification of parenchyma of the pancreas. 2. Dilated pancreatic duct and common bile duct. 3. Minimal amount of sludge in the gallbladder. RECOMMENDATIONS: The patient to be on Creon, maximum dose 3 times a day and some with snacks. We will send the laboratories for CA-19-9. We will send for IgG subclass 4 and ROSEMARIE. We will send for liver function tests for today. The patient to follow in the office for further recommendations. Alexandro Marin M.D. DR: Carli JOB#: [id number] CC:
== END 2018-03-07 12:10 | disposition home or self-care (01) ==
LOC: GAS 08:26
DX: K86.1 Other chronic pancreatitis (principal); K86.89 Other specified diseases of pancreas; K83.8 Other specified diseases of biliary tract; I10 Essential (primary) hypertension; I25.10 Atherosclerotic heart disease of native coronary artery without angina pectoris; E78.5 Hyperlipidemia, unspecified; J45.909 Unspecified asthma, uncomplicated; K21.9 Gastro-esophageal reflux disease without esophagitis; F32.9 Major depressive disorder, single episode, unspecified; F41.9 Anxiety disorder, unspecified; E11.9 Type 2 diabetes mellitus without complications; Z79.84 Long term (current) use of oral hypoglycemic drugs; D64.9 Anemia, unspecified; M19.90 Unspecified osteoarthritis, unspecified site; E66.9 Obesity, unspecified
CPT/HCPCS: 43237; 82784; 82787; 82962; 86039; 86256; 93005; J2704; 94003; 94150